=== PATIENT | male | born 1965 | race Caucasian/White ===

== ENCOUNTER 2025-10-16 00:29 | Emergency (ER) | payer MEDICAID, SELFPAY ==
--- OUTSIDE RECORDS SUMMARY | 2025-09-07 14:00 | XMS_ITS | Encounter Summary ---
Author Organization [place] Address [address] [place] [address] Care Team Providers Care Job Press Feeder Name Role Phone [facility] Unavailable [phone] No Ref-Primary, Physician Primary Care Provider [facility] Unavailable Reason for Referral * Consultation (Routine: Next available opening) - Pending ReviewSpecialty Diagnoses / ProceduresReferred By ContactReferred To ContactGastroenterology Diagnoses Alcoholic cirrhosis of liver with ascites (H) Abi Mcclellan MD [address] [place] [address] Phone: tel: fax: Referral IDStatusReasonStart DateExpiration DateVisits RequestedVisits [id number] Reason for Referral: Liver Disease/Concern Scheduling Instructions: [facility] will call you to coordinate your care as prescribed by the provider. If you don???t hear from a quality audit representative within 12 business days, please call . Comments Please be aware that coverage of these services is subject to the terms and limitations of your health insurance plan. Call member services at your health plan with any benefit or coverage questions. [facility] will call you to coordinate your care as prescribed by the provider. If you don t hear from a quality audit representative within 12 business days, please call . PER MARKETING MANAGER * Mental Health Outpatient (Routine: Next available opening) - Pending Review SpecialtyDiagnoses / ProceduresReferred By ContactReferred To Contact Behavioral Health Diagnoses Major depressive disorder, recurrent episode, moderate (H) TERENCE (generalized anxiety disorder) Abi Mcclellan MD [address] [place] [address] Phone: tel: fax: Referral IDStatusReasonStart DateExpiration DateVisits RequestedVisits [id number] Services: Psychiatry/Med Management Reason for Referral - REVIEW REFERENCE LINK BELOW: Short-term consultation & return to PCP/Collaborative Care (CCPS) My Clinical Question Is: uncontolled anxiety/depression and possible ADHD Patient Scheduling Instructions: [facility] will contact you via phone, text, email or [employer]hart to coordinate your care as prescribed by your provider. If you don't hear from a quality audit representative within 2 business days, please call . Only select yes if the patient has already been scheduled and requires a referral for insurance. Ifyes is selected, the referral will NOT route to scheduling for outreach. No Comments Please be aware that coverage of these services is subject to the terms and limitations of your health insurance plan. Call member services at your health plan with any benefit or coverage questions. [facility] will contact you via phone, text, email or [employer]hart to coordinate your care as prescribed by your provider. If you don't hear from a quality audit representative within 2 business days, please call . PER MARKETING MANAGER Reason for Visit * ReasonCommentsRecheck Medication Encounter Details DateTypeDepartmentCare Team (Latest Contact Info)Ajrafqhdqqp15/21/2025 2:00 PM CSTOffice Visit [facility] [address] [place] [phone] Abi Mcclellan MD [address] [place] [address] Primary hypertension (Primary Dx); Other hyperlipidemia; Benign prostatic hyperplasia with nocturia; Alcoholic cirrhosis of liver with ascites (H); Major depressive disorder, recurrent episode, moderate (H); TERENCE (generalized anxiety disorder) Social History Tobacco UseTypesPacks/DayYears UsedDateSmoking Tobacco: PtwohiLerbiyxfal4Elrt: 05/06/1997Smokeless Tobacco: CurrentChewAlcohol UseStandard Drinks/WeekComments No0 (1 standard drink = 0.6 oz pure alcohol)Quit January 01, 2017PHQ-2AnswerDate RecordedPHQ-2 Zyuld36711/07/2024dolescent EducationAnswerDate RecordedGetting School Help NeededNot on file08/01/2023Food InsecurityAnswerDate RecordedWithin the past 12 months, did you worry that your food would run out before you got money to buy more?No08/26/2023Within the past 12 months, did the food you bought just not last and you didn???t have money to getmore?No08/26/2023Housing StabilityAnswerDate RecordedDo you have housing? (Housing is defined as stable permanent housing and does not include staying outside in a car, in a tent, in an abandoned building, in an overnight group home, or couch-surfing.)Yes08/26/2023 Are you worried about losing your housing?Yes08/26/2023Financial Resource Strain AnswerDate RecordedWithin the past 12 months, have you or your family members you live with been unable to get utilities (heat, electricity) when it was really needed?Yes08/26/2023Transportation NeedsAnswerDate RecordedWithin the past 12 months, has lack of transportation kept you from medical appointments, getting your medicines, non-medical meetings or appointments, work, or from getting things that you need?Yes08/26/2023Interpersonal SafetyAnswerDate RecordedDo you feel physically and emotionally safe where you currently live?Yes 09/07/2025Within the past 12 months, have you been hit, slapped, kicked or otherwise physically hurt by someone?No09/07/2025Within the past 12 months, have you been humiliated or emotionally abused in other ways by your partner or ex-partner?No09/07/2025Sex and Gender InformationValueDate RecordedSex Assigned at BirthNot on fileLegal ZfnCytn49/04/2012 3:21 AM CSTGender IdentityNot on file Sexual OrientationNot on filedocumented as of this encounter Last Filed Vital Signs Vital SignReadingTime TakenCommentsBlood Gjhbbmhx805/7409/07/2025 1:42 PM SHOPPER MARKETING MANAGER Wsjih052609/07/2025 1:42 PM JHLFgrhewfawkl77.7 ??C (99.8 ??F)09/07/2025 1:42 PM CSTRespiratory Enbg134211/07/2024 1:42 PM CSTOxygen Argrfzwpmi99%09/07/2025 1:42 PM CSTInhaled Oxygen Concentration--Bvqlnc076.9 kg (253 lb 3.2 oz)09/07/2025 1:42 PM UGXDcksak725.8 cm (5' 10)09/07/2025 1:42 PM CSTBody Mass Index36.33 09/07/2025 1:42 PM CSTdocumented in this encounter Progress Notes * Abi Mcclellan MD - 09/07/2025 2:00 PM CST Assessment & Plan Primary hypertension Blood pressure reviewed, within target. Patient does report that this is maybe a 1 time reading that is looking good. He does check blood pressure at home which mostly runs in the 150s systolic. Patient has been on losartan medication before which was discontinued several years ago when patient presented to the hospital in 2017 with a seizure activity most likely secondary to withdrawal due to alc ohol dependence. His blood pressure readings have been high as reported by the patient, patient would like to proceed with initiation of blood pressure medication. Losartan Rx completed. Patient does state that he had tolerated the medication well in the past. Patient encouraged to monitor blood pressure at home, maintain a blood pressure log and bring it with him during his next office visit. Update lab work as below. - losartan (COZAAR) 25 MG tablet; Take 1 tablet (25 mg) by mouth daily. - Comprehensive metabolic panel; Future Benign prostatic hyperplasia with nocturia Does not recall being on the medication but feels that it probably would help with LUTS. Rx completed. - tamsulosin (FLOMAX) 0.4 MG capsule; Take 1 capsule (0.4 mg) by mouth daily. Alcoholic cirrhosis of liver with ascites (H) We spent some time today discussing follow-up on alcoholic liver cirrhosis. Patient has not seen a GI doctor for a while, we discussed on referral to the GI/hepatology team, expresses a dismissive tone. Patient expresses frustration with not having received Adderall when he feels that he really needs the medication and that is one of the first things that should be worked on. He does tell the provider that the frustration is not with you but is just with this whole thing. If I do not get the Adderall, I will just get it from some other place. He seems willing to proceed with the lab work and lab orders placed including lipid panel and CMP.He does request for testosterone lab work to be added to the panel and when I tried to ask patient about symptoms, he states I guess I will just get that done at the [facility] as well States that his has been using Lasix but ran out on a refill around 1 to 2 weeks ago. Refill completed. Patient does eventually agree for the referral to be placed. Encouraged to follow-up with the referral and of course patient does understand and and on multiple instances verbalized that he has a right to say no to recommendations as a patient. - Lipid panel reflex to direct LDL Fasting; Future - furosemide (LASIX) 20 MG tablet; TAKE 1 TABLET BY MOUTH ONCE DAILY . APPOINTMENT REQUIRED FOR FUTURE REFILLS - Comprehensive metabolic panel; Future - Adult GI Director Of Sales And Marketing Referral - Consult Only; Future Major depressive disorder, recurrent episode, moderate (H) TERENCE (generalized anxiety disorder) When patient had the assessment for ADHD February 2024, test results and visit documentation as reviewedon chart review: Test results are not consistent with an ADHD diagnosis. Symptoms are better explained by depression, anxiety, and alcohol use. Patient requests for Adderall prescription multiple times during the visit today. Discussed with the patient that it would be reasonable to start with depression/anxiety control. Patient tells provider that no one listens to what I think I need for myself. SSRI medications offered, patient declined. Tells provider I will just get Adderall from some other place He is willing to talk to psychiatrist, referral placed. - Adult Mental Health Director Of Sales And Marketing Referral; Future 62 minutes spent by me on the date of the encounter doing chart review, history and exam, documentation and further activities per the note Danny Ramos is a 60 year old, presenting for the following health issues: Recheck Medication 09/07/2025 1:42 PM Additional Questions Roomed by [place] Accompanied by Self HPI This is my first visit with the patient. Patient has a past medical history of alcohol use disorder, currently in remission with alcoholic liver cirrhosis, hypertension, uncontrolled depression/anxiety. Patient comes in today for refill of medications and for request of Adderall prescription. When patient had the assessment for ADHD February 2024, test results and visit documentation as reviewedon chart review: Test results are not consistent with an ADHD diagnosis. Symptoms are better explained by depression, anxiety, and alcohol use. Patient requests for Adderall prescription multiple times during the visit today. Discussed with the patient that it would be reasonable to start with depression/anxiety control. Patient tells provider that no one listens to what I think I need for myself. I have used Adderall before and I have not had any side effects and it has worked for me Blood pressure reviewed, within target. Patient does report that this is maybe a 1 time reading that is looking good. He does check blood pressure at home which mostly runs in the 150s systolic. Patient has been on losartan medication before which was discontinued several years ago when patient presented to the hospital in 2016 with a seizure activity most likely secondary to withdrawal due to alc ohol dependence. Review of Systems Constitutional, HEENT, cardiovascular, pulmonary, gi and gu systems are negative, except as otherwise noted. Objective BP 130/74 (BP Location: Right arm, Patient Position: Sitting, Cuff Size: Adult Large) Pulse 98 Temp 99.8 ??F (37.7 ??C) (Tympanic) Resp 16 Ht 1.778 m (5' 10) Wt 114.9 kg (253 lb 3.2 oz) SpO2 97% BMI 36.33 kg/m?? Body mass index is 36.33 kg/m??. Physical Exam GENERAL: alert and no distress RESP: lungs clear to auscultation - no rales, rhonchi or wheezes CV: regular rate and rhythm, normal S1 S2 MS: no gross musculoskeletal defects noted, no edema NEURO: Normal strength and tone, mentation intact and speech normal PSYCH: mentation appears normal, affect normal Signed Electronically by: Abi Mcclellan MD PER MARKETING MANAGER documented in this encounter Plan of Treatment DateTypeDepartmentCare Team (Latest Contact Info)Fujorltohlt78/06/2026 1:30 PM CSTOffice Visit [facility] [address] [place] [phone] Abi Mcclellan MD [address] [place], [place] [address] 11/22/2025 8:30 AM CSTVirtual Visit [facility] [address] [phone] Jillian Reeves [facility] [address] [place] [phone] 11/22/2025 9:00 AM CSTVirtual Visit [facility] [address] [phone] Abi Mcclellan MD [address] [place], [place] [phone] [place] [address] [place] [address] NameTypePriorityAssociated DiagnosesOrder ScheduleAdult Mental [facility] Director Of Sales And Marketing ReferralReferralRoutine: Next available opening Major depressive disorder, recurrent episode, moderate (H) TERENCE (generalized anxiety disorder) Expected: 09/07/2025 (Approximate), Expires: 09/07/2026dult GI Director Of Sales And Marketing Referral - Consult OnlyReferralRoutine: Next available opening Alcoholic cirrhosis of liver with ascites (H) Expected: 09/07/2025 (Approximate), Expires: 09/07/2026documented as of this encounter Results * (ABNORMAL) Lipid panel reflex to direct LDL Fasting (09/12/2025 9:42 AM SHOPPER MARKETING MANAGER) ComponentValueRef RangeTest MethodAnalysis TimePerformed AtPathologist ExolzxmumFykbcpuavxi311<200 mg/dL09/12/2025 10:37 PM CST[facility] Uxkqxfdjqqylv965<150 mg/dL09/12/2025 10:37 PM CSTUU LABORATORYDirect Measure HDL16(L)>=40 mg/dL09/12/2025 10:37 PM CSTUU LABORATORYLDL Cholesterol Wnmbrzxvyr12<100 mg/dL09/12/2025 10:37 PM CSTUU LABORATORYComment:LDL calculated using the Friedewald equation.Non HDL Sikkcjjtqxp376<130 mg/dL 09/12/2025 10:37 PM CSTUU LABORATORYPatient Fasting > 8hrs?Yes09/12/2025 10:37 PM CSTUU LABORATORYSpecimen (Source)Anatomical Location / LateralityCollection Method / VolumeCollection TimeReceived TimeBloodBLOOD SPECIMEN / Unknown Venipuncture / Uevecyo7809/12/2025 9:42 AM CST09/12/2025 9:42 AM SHOPPER MARKETING MANAGER Narrative [facility] - 09/12/2025 10:37 PM SHOPPER MARKETING MANAGER Cholesterol Desirable: < 200 mg/dL Borderline High: 200 - 239 mg/dL High: >= 240 mg/dL Triglycerides Normal: < 150 mg/dL Borderline High: 150 - 199 mg/dL High: 200-499 mg/dL Very High: >= 500 mg/dL Direct Measure HDL Female: >= 50 mg/dL Male: >= 40 mg/dL LDL Cholesterol Desirable: < 100 mg/dL Above Desirable: 100 - 129 mg/dL Borderline High: 130 - 159 mg/dL High: ??160 - 189 mg/dL Very High: >= 190 mg/dL Non HDL Cholesterol Desirable: < 130 mg/dL Above Desirable: 130 - 159 mg/dL Borderline High: 160 - 189 mg/dL High: 190 - 219 mg/dL Very High: >= 220 mg/dL Authorizing ProviderResult TypeResult StatusHafsa Eleuterio MDLAB - BLOOD ORDERABLESFinal ResultPerforming OrganizationAddressCity/State/ZIP CodePhone Number [facility] [place] [facility] [address] [place] [address], [place] * (ABNORMAL) Comprehensive metabolic panel (09/12/2025 9:42 AM SHOPPER MARKETING MANAGER)Component ValueRef RangeTest MethodAnalysis TimePerformed AtPathologist SignatureSodium 238759 - 145 mmol/L111/12/2024 10:37 PM CSTUU LABORATORYPotassium3.0(L)3.4 - 5.3 mmol/L111/12/2024 10:37 PM CSTUU LABORATORYCarbon Dioxide (CO2)2622 - 29 mmol/L111/12/2024 10:37 PM CSTUU LABORATORYAnion Fxg126 - 15 mmol/L111/12/2024 10:37 PM CSTUU LABORATORYUrea Jvhjriaz41.16.0 - 20.0 mg/dL09/12/2025 10:37 PM CSTUU LABORATORYCreatinine0.890.67 - 1.17 mg/dL09/12/2025 10:37 PM CSTUU LABORATORYGFR Estimate>90>60 mL/min/1.11h97209/12/2025 10:37 PM CST[facility] Comment:eGFR calculated using 2020 CKD-EPI equation.Calcium9.08.8 - 10.4 mg/dL 09/12/2025 10:37 PM CSTUU IIMNTTEASKDdjdbvzw91472 - 107 mmol/L111/12/2024 10:37 PM CSTUU OAOBHSQAOMEhcdvjd180(H)70 - 99 mg/dL09/12/2025 10:37 PM CSTUU LABORATORYAlkaline Dvazoheocwd410(H)40 - 150 U/L111/12/2024 10:37 PM CSTUU JIBQAJLMPWBNK29(H)0 - 45 U/L111/12/2024 10:37 PM CSTUU GXWEWABPTTBDX726 - 70 U/L111/12/2024 10:37 PM CSTUU LABORATORYProtein Total7.06.4 - 8.3 g/dL 09/12/2025 10:37 PM CSTUU LABORATORYAlbumin3.1(L)3.5 - 5.2 g/dL09/12/2025 10:37 PM CSTUU LABORATORYBilirubin Total5.5(H)<=1.2 mg/dL09/12/2025 10:37 PM CSTUU LABORATORYPatient Fasting > 8hrs?Yes09/12/2025 10:37 PM CST[facility] Specimen (Source)Anatomical Location / LateralityCollection Method / Volume Collection TimeReceived TimeBloodBLOOD SPECIMEN / UnknownVenipuncture / Tcdfyvk1509/12/2025 9:42 AM CST09/12/2025 9:42 AM SHOPPER MARKETING MANAGER Narrative Authorizing ProviderResult TypeResult StatusHafsgary Mcclellan MDLAB - BLOOD ORDERABLESFinal ResultPerforming OrganizationAddressCity/State/ZIP CodePhone Number [facility] [place] [facility] [address] [place] [address] documented in this encounter Visit Diagnoses Diagnosis Primary hypertension- Primary Unspecified essential hypertension Other hyperlipidemia Benign prostatic hyperplasia with nocturia Alcoholic cirrhosis of liver with ascites (H) Alcoholic cirrhosis of liver Major depressive disorder, recurrent episode, moderate (H) Major depressive disorder, recurrent episode, moderate TERENCE (generalized anxiety disorder) Generalized anxiety disorder documented in this encounter Additional Health Concerns AssessmentNoted TimePHQ-9 Depression Total Score: 7111/07/2024 1:50 PM SHOPPER MARKETING MANAGER documented as of this encounter Care Teams Team MemberRelationshipSpecialtyStart DateEnd Date No Ref-Primary, Physician PCP - General05/28/23 [facility] [id number] [place] [address] PCP02/09/[address] [address] Assigned PCP07/10/22/25documented as of this encounter
--- OUTSIDE RECORDS SUMMARY | 2025-09-12 09:45 | XMS_ITS | Encounter Summary ---
Author Organization [facility] Address [address] [place] [address] Care Team Providers Care Ceramics Technician Name Role Phone Clinic, [facility] Unavailable [phone] No Ref-Primary, Physician Primary Care Provider Abi Mcclellan MD Unavailable Encounter Details DateTypeDepartmentCare Team (Latest Contact Info)Mnapybxhose71/26/2025 9:45 AM [facility] [address] [place] [address] Primary hypertension; Alcoholic cirrhosis of liver with ascites (H) Social History Tobacco UseTypesPacks/DayYears UsedDateSmoking Tobacco: MmvdwbCdhxtjlwdb2Zslu: 05/06/1997Smokeless Tobacco: CurrentChewAlcohol UseStandard Drinks/WeekComments No0 (1 standard drink = 0.6 oz pure alcohol)Quit January 01, 2017PHQ-2AnswerDate RecordedPHQ-2 Yaoti13911/07/2024dolescent EducationAnswerDate RecordedGetting School Help NeededNot on file08/01/2023Food [...] in an abandoned building, in an overnight detention, or couch-surfing.)Yes08/26/2023 Are you worried about losing [...] InformationValueDate RecordedSex Assigned at BirthNot on fileLegal FbyYzfx04/04/2012 3:21 AM CSTGender IdentityNot on file Sexual OrientationNot on filedocumented as of this encounter Plan of Treatment DateTypeDepartmentCare Team (Latest Contact Info)Smusnngnhfq93/06/2026 1:30 PM CSTOffice Visit [facility] [address] [place] [phone] Abi Mcclellan MD [address] [place] [address] 11/22/2025 8:30 AM CSTVirtual Visit [facility] [address] [place] [phone] Jillian Reeves [facility] [address] [place] [phone] 11/22/2025 9:00 AM CSTVirtual Visit [facility] [place] [address] [place] [phone] Abi Mcclellan MD [address] [place], [place] [address] Elisa Colon DO [address] [place], [place] [phone] documented as of this encounter Procedures Procedure NamePriorityDate/TimeAssociated DiagnosisCommentsLIPID REFLEX TO DIRECT LDL CBLYHBxnahsr97/26/2025 9:42 AM DINKEY PRESS OPERATOR Alcoholic cirrhosis of liver with ascites (H) COMPREHENSIVE METABOLIC JITZCRzmccix13/26/2025 9:42 AM DINKEY PRESS OPERATOR Primary hypertension Alcoholic cirrhosis of liver with ascites (H) documented in this encounter Results * (ABNORMAL) Lipid panel reflex to direct LDL Fasting (09/12/2025 9:42 AM DINKEY PRESS OPERATOR) ComponentValueRef RangeTest MethodAnalysis TimePerformed AtPathologist UvpmfdtxyIfrgmotkfna832<200 mg/dL09/12/2025 10:37 PM [facility] Iblhxsarvbmzf886<150 mg/dL09/12/2025 10:37 PM CSTUU LABORATORYDirect Measure HDL16(L)>=40 mg/dL09/12/2025 10:37 PM [facility]ST[facility] LABORATORYLDL Cholesterol Ozsfjihffd15<100 mg/dL09/12/2025 10:37 PM CSTUU LABORATORYComment:LDL calculated using the Friedewald equation.Non HDL Sgqpfdpglfd399<130 mg/dL 09/12/2025 10:37 PM CST[facility] LABORATORYPatient Fasting > 8hrs?Yes09/12/2025 10:37 PM CSTUU LABORATORYSpecimen (Source)Anatomical Location / LateralityCollection Method / VolumeCollection TimeReceived TimeBloodBLOOD SPECIMEN / Unknown Venipuncture / Sajwbuw1709/12/2025 9:42 AM CST09/12/2025 9:42 AM DINKEY PRESS OPERATOR Narrative [facility] - 09/12/2025 10:37 PM DINKEY PRESS OPERATOR Cholesterol Desirable: < 200 mg/dL Borderline High: [...] High: >= 220 mg/dL Authorizing ProviderResult TypeResult StatusHafsgary Mcclellan MDLAB - BLOOD ORDERABLESFinal ResultPerforming OrganizationAddressCity/State/ZIP CodePhone Number [facility] [address] [facility], [address] [place] [phone] * (ABNORMAL) Comprehensive metabolic panel (09/12/2025 9:42 AM DINKEY PRESS OPERATOR)Component ValueRef RangeTest MethodAnalysis TimePerformed AtPathologist SignatureSodium 127385 - 145 mmol/L111/12/2024 10:37 PM CST[facility] LABORATORYPotassium3.0(L)3.4 - 5.3 mmol/L111/12/2024 10:37 PM CST[facility] LABORATORYCarbon Dioxide (CO2)2622 - 29 mmol/L111/12/2024 10:37 PM CST[facility] LABORATORYAnion Kci412 - 15 mmol/L111/12/2024 10:37 PM CST[facility] LABORATORYUrea Ctjambbm90.16.0 - 20.0 mg/dL09/12/2025 10:37 PM [facility] LABORATORYCreatinine0.890.67 - 1.17 mg/dL09/12/2025 10:37 PM CST[facility] LABORATORYGFR Estimate>90>60 mL/min/1.69i72009/12/2025 10:37 PM [facility] Comment:eGFR calculated using 2020 CKD-EPI equation.Calcium9.08.8 - 10.4 mg/dL 09/12/2025 10:37 PM [facility] VPXZRYLARRJcdaarys38524 - 107 mmol/L111/12/2024 10:37 PM [facility] GEHNOJXVROTcujvpv918(H)70 - 99 mg/dL09/12/2025 10:37 PM [facility]ST[facility] LABORATORYAlkaline Wqwzvvtpnne638(H)40 - 150 U/L111/12/2024 10:37 PM [facility] CPAUCLVVNBTTC72(H)0 - 45 U/L111/12/2024 10:37 PM [facility] LPAUXLXRWWRIB482 - 70 U/L111/12/2024 10:37 PM [facility] LABORATORYProtein Total7.06.4 - 8.3 g/dL 09/12/2025 10:37 PM [facility] LABORATORYAlbumin3.1(L)3.5 - 5.2 g/dL09/12/2025 10:37 PM [facility] LABORATORYBilirubin Total5.5(H)<=1.2 mg/dL09/12/2025 10:37 PM [facility] LABORATORYPatient Fasting > 8hrs?Yes09/12/2025 10:37 PM [facility] Specimen (Source)Anatomical Location / LateralityCollection Method / Volume Collection TimeReceived TimeBloodBLOOD SPECIMEN / UnknownVenipuncture / Hajzpry3009/12/2025 9:42 AM CST09/12/2025 9:42 AM DINKEY PRESS OPERATOR Narrative Authorizing ProviderResult TypeResult StatusHafsa Eleuterio VELASCOLAB - BLOOD ORDERABLESFinal ResultPerforming OrganizationAddressCity/State/ZIP CodePhone Number [facility] [address] [facility], [address] [phone] documented in this encounter Visit Diagnoses Diagnosis Primary hypertension Unspecified essential hypertension Alcoholic cirrhosis of liver with ascites (H) Alcoholic cirrhosis of liver documented in this encounter Additional Health Concerns AssessmentNoted TimePHQ-9 Depression Total Score: 7111/07/2024 1:50 PM DINKEY PRESS OPERATOR documented as of this encounter Care Teams Team MemberRelationshipSpecialtyStart DateEnd Date No Ref-Primary, Physician PCP - General05/28/23 [place] [address] PCP02/09/18 Abi Mcclellan MD [address] [place], [place] [address] Assigned PCP09/09/25documented as of this encounter
--- OUTSIDE RECORDS SUMMARY | 2025-10-09 13:51 | XMS_ITS | Encounter Summary ---
Author Organization [facility] Address [address] [place] [address] Care Team Providers Care Cabin Furnishings Installer Name Role Phone [facility], [facility] Unavailable [phone] No Ref-Primary, Physician Primary Care Provider Abi Mcclellan MD Unavailable Reason for Visit * ReasonCommentsBloated * Auth/CertSpecialtyDiagnoses / ProceduresReferred By ContactReferred To Contact EMERGENCY MEDICINE Diagnoses Hepatitis [facility] Emergency Dept [address] [place] [address] Phone: tel:[phone] fax: Referral IDStatusReasonStart DateExpiration DateVisits RequestedVisits [id number] Encounter Details DateTypeDepartmentCare Team (Latest Contact Info)Jfmgcvnfiun32/23/2025 1:51 PM SEALING MACHINE OPERATOR - 10/09/2025 4:45 PM CSTHospital Encounter [facility] Emergency Dept [address] [place] [address] Zenon Khanna MD [facility] [address] [place] [address] [place] [address] Hepatitis (Primary Dx); 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) Discharge Disposition: Home or Self Care Social History Tobacco UseTypesPacks/DayYears UsedDateSmoking Tobacco: LcnkajDmxlrrgouz3Fidz: 05/06/1997Smokeless Tobacco: CurrentChewAlcohol UseStandard Drinks/WeekComments No0 (1 standard drink = 0.6 oz pure alcohol)Quit January 01, 2017PHQ-2AnswerDate RecordedPHQ-2 Dswuj47611/07/2024dolescent EducationAnswerDate RecordedGetting School Help NeededNot on file08/01/2023Food [...] in an abandoned building, in an overnight assisted, or couch-surfing.)Yes08/26/2023 Are you worried about losing [...] InformationValueDate RecordedSex Assigned at BirthNot on fileLegal IpzRyul25/04/2012 3:21 AM CSTGender IdentityNot on file Sexual OrientationNot on filedocumented as of this encounter Last Filed Vital Signs Vital SignReadingTime TakenCommentsBlood Eclgfiwt785/7210/09/2025 3:26 PM SEALING MACHINE OPERATOR Zptjs962610/09/2025 3:26 PM ZTFZemjciucjjz62.4 ??C (97.6 ??F)10/09/2025 12:38 PM CSTRespiratory Aypu9050 12:38 PM CSTOxygen Gumzbapjig94%10/09/2025 3:26 PM CSTInhaled Oxygen Concentration--Cmgmaz618.1 kg (247 lb 2.2 oz)10/09/2025 12:38 PM YOIQqhpqj865.8 cm (5' 10)10/09/2025 12:38 PM CSTBody Mass Index35.46 10/09/2025 12:38 PM CSTdocumented in this encounter Functional Status * Calculated C-SSRS Risk Score (Lifetime/Recent)AnswerDate of AssessmentAuthorNo Risk Sqyiwihrm18/23/2025 12:38 PM Opal Hightower RN * [place] Suicide Severity Rating Scale (Screener/Recent Self-Report)Question AnswerDate of AssessmentAuthor1. Wish to be (Past 1 Month)No10/09/2025 12:38 PM Opal Hightower RN2. Non-Specific Active Suicidal Thoughts (Past 1 Month)No10/09/2025 12:38 PM Opal Hightower RN6. Suicidal Behavior (Lifetime)No10/09/2025 12:38 PM Opal Hightower RN documented as of this encounter Discharge Instructions * Discharge Instructions* Zenon Khanna MD - 10/09/2025 4:42 PM SEALING MACHINE OPERATOR If you change your mind about admission, please return. It is vital that you do not use any alcoholor tylenol to prevent worsening liver disease and . ING MACHINE OPERATOR * Attachments The following attachments cannot be sent through Care Everywhere. * Hepatitis (Sudanese) documented in this encounter Medications at Time of Discharge MedicationSigDispense QuantityRefillsLast FilledStart DateEnd Date pvelqhtq-qtpibyrba-cbyKEPLLwtboy (MAXITROL) 0.1 % ophthalmic suspension Indications:Acute bacterial conjunctivitis of both eyesPlease instill 1-2 drops into both eyes 4 times daily for 7 days 10 mL 09/28/2023 furosemide (LASIX) 20 MG tablet Indications:Alcoholic cirrhosis of liver with ascites (H)TAKE 1 TABLET BY MOUTH ONCE DAILY . APPOINTMENT REQUIRED FOR FUTURE REFILLS 60 tablet losartan (COZAAR) 25 MG tablet Indications:Primary hypertensionTake 1 tablet (25 mg) by mouth daily. 90 tablet tamsulosin (FLOMAX) 0.4 MG capsule Indications:Benign prostatic hyperplasia with nocturiaTake 1 capsule (0.4 mg) by mouth daily. 30 capsule documented as of this encounter Progress Notes * Catherine Gomez RN - 10/09/2025 3:09 PM CST Patient tolerated paracentesis well. 1200 mL of clear yellow fluid drained done by Dr. Lomeli. Dressing Clean dry and intact with no drainage. No albumin given. Patient back to ER via cart. Samplesrequested were brought to lab for processing. ING MACHINE OPERATOR documented in this encounter ED Notes * Karlene Campos RN - 10/09/2025 4:33 PM CST [facility] ED Nurse Handoff Report ED Chief complaint: Bloated . 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 Activity Level - Current: standby. Lift room needed: No. Bariatric: No Tool Machine Set Up Operator Needed: No Isolation: No. Infection: Not Applicable. Respiratory status: Room air Vital Signs (within 30 minutes): Vitals: 10/09/25 1238 10/09/25 1526 BP: 137/78 135/72 Pulse: 89 81 Resp: 20 Temp: 97.6 ??F (36.4 ??C) TempSrc: Oral SpO2: 99% 96% Weight: 112.1 kg (247 lb 2.2 oz) Height: 1.778 m (5' 10) Cardiac Rhythm: , Pain level: Patient confused: No. Patient Falls Risk: patient and family education. Elimination Status: Has voided Patient Report - Initial Complaint: bloating. Focused Assessment: pt bloated feeling decreased post paracentesis. Abnormal Results: Labs Ordered and Resulted from Time of ED Arrival to Time of ED Departure COMPREHENSIVE METABOLIC PANEL (LIMITED OCCURRENCES) - Abnormal Result Value Sodium 136 Potassium 3.0 (*) Carbon Dioxide (CO2) 26 Anion Gap 12 Urea Nitrogen 21.0 (*) Creatinine 1.13 GFR Estimate 75 Calcium 8.0 (*) Chloride 98 Glucose 145 (*) Alkaline Phosphatase 246 (*) AST 121 (*) ALT 57 Protein Total 6.0 (*) Albumin 2.7 (*) Bilirubin Total 21.0 (*) LIPASE - Abnormal Lipase 99 (*) BILIRUBIN DIRECT - Abnormal Bilirubin Direct 16.23 (*) ROUTINE UA WITH MICROSCOPIC REFLEX TO CULTURE - Abnormal Color Urine Dark Yellow (*) Appearance Urine Clear Glucose Urine Negative Bilirubin Urine Large (*) Ketones Urine Negative Specific [place] Urine 1.012 Blood Urine Negative pH Urine 6.0 Protein Albumin Urine Negative Urobilinogen Urine 4.0 (*) Nitrite Urine Negative Leukocyte Esterase Urine Trace (*) Bacteria Urine Few (*) Mucus Urine Present (*) RBC Urine 1 WBC Urine 8 (*) Squamous Epithelials Urine 3 (*) CBC WITH PLATELETS AND DIFFERENTIAL - Abnormal WBC Count 5.97 RBC Count 3.58 (*) Hemoglobin 8.4 (*) Hematocrit 28.1 (*) MCV 78.5 MCH 23.5 (*) MCHC 29.9 (*) RDW 23.6 (*) Platelet Count 118 (*) % Neutrophils 72.5 % Lymphocytes 12.6 % Monocytes 8.7 % Eosinophils 5.4 % Basophils 0.5 % Immature Granulocytes 0.3 NRBCs per 100 WBC 0.0 Absolute Neutrophils 4.33 Absolute Lymphocytes 0.75 (*) Absolute Monocytes 0.52 Absolute Eosinophils 0.32 Absolute Basophils 0.03 Absolute Immature Granulocytes <0.03 Absolute NRBCs <0.03 INR - Abnormal INR 1.82 (*) PT 20.7 (*) ALBUMIN FLUID PROTEIN FLUID ETHANOL LEVEL BLOOD CELL COUNT BODY FLUID DIFERENTIAL BODY FLUID AEROBIC BACTERIAL CULTURE ROUTINE CELL COUNT WITH DIFFERENTIAL FLUID US Paracentesis with Albumin Final Result IMPRESSION: 1. Status post ultrasound-guided paracentesis. Reference CPT Code: 78778 Treatments provided: see chart Family Comments: see chart OBS brochure/video discussed/provided to patient: N/A ED Medications: Medications albumin human 25 % injection 25-50 g (has no administration in time range) lidocaine 1 % 1-30 mL (10 mLs Subcutaneous $Given by Other 10/09/25 1509) Drips infusing: No For the majority of the shift this patient was n/a. Interventions performed were n/a. Sepsis treatment initiated: No Cares/treatment/interventions/medications to be completed following ED care: see chart ED Nurse Name: Karlene Campos RN 4:34 PM [1] Allergies Allergen Reactions Eicosapentaenoic Acid (Epa) (Fish) Anaphylaxis Fish Protein-Containing Drug Products Anaphylaxis Has had IV contrast 12/2015 without issue Penicillins Hives Has tolerated ampicillin/sulbactam Ibuprofen Hives ING MACHINE OPERATOR * Beth Hernandez RN - 10/09/2025 2:33 PM CST Bed: ED15 Expected date: Expected time: Means of arrival: Comments: triage ING MACHINE OPERATOR * Zenon Khanna MD - 10/09/2025 2:10 PM CST Emergency Department Note History of Present Illness Chief Complaint Bloated HPI Richard Fonseca is a 60 year old male who presents with bloating over the past few weeks that has been progressive. Last etoh was years ago per patient. Pt reports last paracentesis was years ago. Pt has noticed a few weeks of yellowing of the eyes. Pt lives alone and drove here. Pt feels itchy. Pt takes lasix for swelling in legs and abdomen. No black or blood in stool. No vomiting. Sometimes dizzy but not today. Pt fell yesterday on ice but did not hit head. Pt doesn't feel confused. No cough. No headache. No recreational drugs. Pt uses adderal that is not prescribed. Independent Historian None Review of External Notes Past Medical History Medical History and Problem List Past Medical History: Diagnosis Date C. difficile colitis 01/17/2017 Hypertension Seizures (H) Medications furosemide (LASIX) 20 MG tablet losartan (COZAAR) 25 MG tablet oacgektk-hidleiolu-rjvSZPZIytbgw (MAXITROL) 0.1 % ophthalmic suspension tamsulosin (FLOMAX) 0.4 MG capsule Surgical History Past Surgical History: Procedure Laterality Date ESOPHAGOSCOPY, GASTROSCOPY, DUODENOSCOPY (EGD), COMBINED N/A 05/17/2023 Procedure: ESOPHAGOGASTRODUODENOSCOPY; Surgeon: Umer Magaña MD; Location: OR Physical Exam Patient Vitals for the past 24 hrs: BP Temp Temp src Pulse Resp SpO2 Height Weight 10/09/25 1526 135/72 -- -- 81 -- 96 % -- -- 10/09/25 1238 137/78 97.6 ??F (36.4 ??C) Oral 89 20 99 % 1.778 m (5' 10) 112.1 kg (247 lb 2.2 oz) Physical Exam VS: Reviewed per above HENT: Mucous membranes moist EYES: sclera icteric CV: Rate as noted, regular rhythm. RESP: Effort normal. Breath sounds are normal bilaterally. GI: no focal tenderness. no rebound/guarding, anasarca vs obese vs distended. NEURO: Alert, moving all extremities MSK: No deformity of the extremities SKIN: Warm and dry, jaundiced skin Diagnostics Lab Results Labs Ordered and Resulted from Time of ED Arrival to Time of ED Departure COMPREHENSIVE METABOLIC PANEL (LIMITED OCCURRENCES) - Abnormal Result Value Sodium 136 Potassium 3.0 (*) Carbon Dioxide (CO2) 26 Anion Gap 12 Urea Nitrogen 21.0 (*) Creatinine 1.13 GFR Estimate 75 Calcium 8.0 (*) Chloride 98 Glucose 145 (*) Alkaline Phosphatase 246 (*) AST 121 (*) ALT 57 Protein Total 6.0 (*) Albumin 2.7 (*) Bilirubin Total 21.0 (*) LIPASE - Abnormal Lipase 99 (*) BILIRUBIN DIRECT - Abnormal Bilirubin Direct 16.23 (*) ROUTINE UA WITH MICROSCOPIC REFLEX TO CULTURE - Abnormal Color Urine Dark Yellow (*) Appearance Urine Clear Glucose Urine Negative Bilirubin Urine Large (*) Ketones Urine Negative Specific [place] Urine 1.012 Blood Urine Negative pH Urine 6.0 Protein Albumin Urine Negative Urobilinogen Urine 4.0 (*) Nitrite Urine Negative Leukocyte Esterase Urine Trace (*) Bacteria Urine Few (*) Mucus Urine Present (*) RBC Urine 1 WBC Urine 8 (*) Squamous Epithelials Urine 3 (*) CBC WITH PLATELETS AND DIFFERENTIAL - Abnormal WBC Count 5.97 RBC Count 3.58 (*) Hemoglobin 8.4 (*) Hematocrit 28.1 (*) MCV 78.5 MCH 23.5 (*) MCHC 29.9 (*) RDW 23.6 (*) Platelet Count 118 (*) % Neutrophils 72.5 % Lymphocytes 12.6 % Monocytes 8.7 % Eosinophils 5.4 % Basophils 0.5 % Immature Granulocytes 0.3 NRBCs per 100 WBC 0.0 Absolute Neutrophils 4.33 Absolute Lymphocytes 0.75 (*) Absolute Monocytes 0.52 Absolute Eosinophils 0.32 Absolute Basophils 0.03 Absolute Immature Granulocytes <0.03 Absolute NRBCs <0.03 INR - Abnormal INR 1.82 (*) PT 20.7 (*) AEROBIC BACTERIAL CULTURE ROUTINE Imaging US Paracentesis with Albumin Final Result IMPRESSION: 1. Status post ultrasound-guided paracentesis. Reference CPT Code: 47316 EKG Independent Interpretation None ED Course Medications Administered Medications lidocaine 1 % 1-30 mL (10 mLs Subcutaneous $Given by Other 10/09/25 4356) Procedures Procedures Discussion of Management None ED Course Additional Documentation None Medical Decision Making / Diagnosis [facility] Diagnoses: None MIPS None [facility] Richard Fonseca is a 60 year old male who presents to the ER for progressive jaundice and abdominal distention over the past few weeks. Vital signs reassuring. On exam he is awake and alert and not confused. He has scleral icterus and jaundice. He has abdominal distention but no focal tenderness. Labs do suggest hepatitis and bilirubin elevation. There is also mild hypokalemia as well as some mild worsening anemia with hemoglobin of 8.4 but no history to support brisk GI bleed. IR performed paracentesis with removal of 1 to 2 L of fluid. Initial studies did not suggest likely SBP. Strongly recommended hospital admission for further gastroenterology evaluation. He declined. He understood the risk of serious morbidity or mortality should he discharge. Return precautions discussed. Disposition The patient was discharged AMA Diagnosis ICD-10-CM 1. Hepatitis K75.9 2. 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) K70.31 Discharge Medications Discharge Medication List as of 10/09/2025 4:46 PM Zenon Khanna MD 10/09/25 1859 ING MACHINE OPERATOR * Opal Langford RN - 10/09/2025 12:39 PM CST Pt presents for evaluation of bloating and constipation. Also feeling short of breath and generalized itchy skin at night. Hx of cirrhosis with ascites. Yellowing noted to the sclera and skin. Had a paracentesis 8 years ago, none since. Last BM was today. ING MACHINE OPERATOR documented in this encounter Plan of Treatment DateTypeDepartmentCare Team (Latest Contact Info)Jjxzrzolwwd53/06/2026 1:30 PM CSTOffice Visit [facility] [address] [facility] [address] [address] [facility] [address] [place] [phone] Abi Mcclellan MD [address] [place], [place] [address] 11/22/2025 8:30 AM CSTVirtual Visit [facility] [address] [address] Jillian Reeves [facility] [address] [place], [place] [phone] 11/22/2025 9:00 AM CSTVirtual Visit [facility] [address] [phone] Abi Mcclellan MD [address] [place], [place] [phone] Elisa Colon DO [address] [place], [place] [phone] documented as of this encounter Procedures Procedure NamePriorityDate/TimeAssociated DiagnosisCommentsROUTINE UA WITH MICROSCOPIC REFLEX TO XWGBSNUNUWB12/23/2025 4:03 PM SEALING MACHINE OPERATOR US PARACENTESIS WITH LCGNTAMQPKP80/23/2025 3:24 PM SEALING MACHINE OPERATOR DIFERENTIAL BODY UUYWVGEHQ45/23/2025 3:11 PM SEALING MACHINE OPERATOR CELL COUNT BODY HOQZMIHME08/23/2025 3:11 PM SEALING MACHINE OPERATOR AEROBIC BACTERIAL CULTURE EBLPTTCGHVT45/23/2025 3:11 PM SEALING MACHINE OPERATOR PROTEIN RWMYPUVUI13/23/2025 3:11 PM SEALING MACHINE OPERATOR CELL COUNT WITH DIFFERENTIAL KTICTRDLO79/23/2025 3:11 PM SEALING MACHINE OPERATOR ALBUMIN OFPZLVWDC29/23/2025 3:11 PM SEALING MACHINE OPERATOR EXTRA AHYMZIGN32/23/2025 1:15 PM SEALING MACHINE OPERATOR EXTRA RED TOP TTSGFABN64/23/2025 1:15 PM SEALING MACHINE OPERATOR EXTRA BLUE TOP TMYTINVQ06/23/2025 1:15 PM SEALING MACHINE OPERATOR CBC WITH PLATELETS AND GGCAXHMRVKFUPUYS20/23/2025 1:15 PM SEALING MACHINE OPERATOR CBC WITH PLATELETS AND DIFFERENTIAL (LIMITED OCCURRENCES)STAT112/10/2024 1:15 PM SEALING MACHINE OPERATOR COMPREHENSIVE METABOLIC PANEL (LIMITED OCCURRENCES)STAT112/10/2024 1:15 PM SEALING MACHINE OPERATOR UQIIVKJ6610/09/2025 1:15 PM SEALING MACHINE OPERATOR JGOJRZCZGE89/23/2025 1:15 PM SEALING MACHINE OPERATOR BILIRUBIN MRLXSVUBCI16/23/2025 1:15 PM SEALING MACHINE OPERATOR ETHANOL LEVEL BLOODAdd-On12/ 1:15 PM SEALING MACHINE OPERATOR documented in this encounter Results * (ABNORMAL) UA with Microscopic reflex to Culture (10/09/2025 4:03 PM SEALING MACHINE OPERATOR) ComponentValueRef RangeTest MethodAnalysis TimePerformed AtPathologist SignatureColor UrineDark Yellow(A)Colorless, Straw, Light Yellow, Yellow 10/09/2025 4:32 PM [facility] LABORATORYAppearance LsqnkItyjvDqqbu71/23/2025 4:32 PM [facility] LABORATORYGlucose UrineNegativeNegative mg/dL10/09/2025 4:32 PM [facility] LABORATORYBilirubin UrineLarge(A)Bnihiueh21/23/2025 4:32 PM [facility] Ketones UrineNegativeNegative mg/dL10/09/2025 4:32 PM [facility] LABORATORYSpecific [place] Urine1.0121.003 - 1.3142910/09/2025 4:32 PM [facility] LABORATORYBlood Urine UxhwelfoDgdijcga20/23/2025 4:32 PM [facility] LABORATORYpH Urine6.05.0 - 7.0 10/09/2025 4:32 PM [facility] LABOR[facility]ORYProtein Albumin UrineNegativeNegative mg/dL 10/09/2025 4:32 PM [facility] LABORATORYUrobilinogen Urine4.0(A)Normal mg/dL 10/09/2025 4:32 PM [facility] LABORATORYNitrite MoaafWuksnedyDhrfmdwe20/23/2025 4:32 PM [facility] LABORATORYLeukocyte Esterase UrineTrace(A)Yvhwfnew60/23/2025 4:32 PM [facility] LABORATORYBacteria UrineFew(A)None Seen /HPF10/09/2025 4:32 PM [facility] LABORATORYMucus UrinePresent(A)None Seen /LPF112/10/2024 4:32 PM [facility] LABORATORYRBC Urine1<=2 /HPF10/09/2025 4:32 PM [facility] LABORATORYWBC Urine8(H) <=5 /HPF10/09/2025 4:32 PM [facility] LABORATORYSquamous Epithelials Urine3(H)<=1 /HPF10/09/2025 4:32 PM [facility] LABORATORYSpecimen (Source)Anatomical Location / LateralityCollection Method / VolumeCollection TimeReceived TimeUrineMID- STREAM URINE SPECIMEN / UnknownNon-blood Collection / Nrbpqes2810/09/2025 4:03 PM CST10/09/2025 4:17 PM SEALING MACHINE OPERATOR Narrative LABORATORY - 10/09/2025 4:32 PM SEALING MACHINE OPERATOR Urine Culture not indicated Authorizing ProviderResult TypeResult StatusZenon Khanna LAB - URINE ORDERABLESFinal ResultPerforming OrganizationAddressCity/State/ZIP CodePhone Number [facility] [address] Lab (1st floor, no room number) [place] [address], [facility] * US Paracentesis with Albumin (10/09/2025 3:24 PM SEALING MACHINE OPERATOR)Anatomical Region LateralityModalityAbdomen/PelvisUltrasoundSpecimen (Source)Anatomical Location / LateralityCollection Method / VolumeCollection TimeReceived Time10/09/2025 3:24 PM CST10/09/2025 3:25 PM SEALING MACHINE OPERATOR Impressions 10/09/2025 3:56 PM SEALING MACHINE OPERATOR IMPRESSION: 1. ??Status post ultrasound-guided paracentesis. Reference CPT Code: 27693 Narrative 10/09/2025 3:56 PM SEALING MACHINE OPERATOR EXAM: 1. PARACENTESIS 2. ULTRASOUND GUIDANCE LOCATION: [facility] DATE: 10/09/2025 INDICATION: Ascites. PROCEDURE: Informed consent obtained. Time out performed. The abdomen was prepped and draped in a sterile fashion. 10 mL of 1% lidocaine was infused into local soft tissues. A 5 Surinamese catheter system was introduced into the abdominal ascites under ultrasound guidance. 1.2 liters of clear fluid were removed and sent to lab if requested. Patient tolerated procedure well. Ultrasound imaging was obtained and placed in the patient's permanent medical record. Procedure Note David Lomeli MD - 10/09/2025 EXAM: 1. PARACENTESIS 2. ULTRASOUND GUIDANCE LOCATION: [facility] DATE: 10/09/2025 INDICATION: Ascites. PROCEDURE: Informed consent obtained. Time out performed. The abdomen wasprepped and draped in a sterile fashion. 10 mL of 1% lidocaine was infusedinto local soft tissues. A 5 Surinamese catheter system was introduced intothe abdominal ascites under ultrasound guidance. 1.2 liters of clear fluid were removed and sent to lab if requested. Patient tolerated procedure well. Ultrasound imaging was obtained and placed in the patient's permanentmedical record. IMPRESSION: 1. Status post ultrasound-guided paracentesis. Reference CPT Code: 40449 Authorizing ProviderResult TypeResult StatusZenon CANDELARIOG US ORDERABLES Final Result * Differential Body Fluid (10/09/2025 3:11 PM SEALING MACHINE OPERATOR)ComponentValueRef RangeTest MethodAnalysis TimePerformed AtPathologist Signature% Slxlbjnptab47% NAZIA 10/09/2025 6:07 PM [facility]% Uakhrqkysmp83% NAZIA 10/09/2025 6:07 PM [facility]% Monocyte/Uaykcvrzaxy77% NAZIA 10/09/2025 6:07 PM [facility]% Lining Cells8% NAZIA 10/09/2025 6:07 PM [facility] LABORATORYAbsolute Neutrophils, Body Fluid37.4/uL NAZIA 10/09/2025 6:07 PM [facility] LABORATORYSpecimen (Source)Anatomical Location / LateralityCollection Method / VolumeCollection TimeReceived TimeAscites Fluid FLUID SPECIMEN / UnknownNon-blood Collection / Zqiffhi5810/09/2025 3:11 PM SEALING MACHINE OPERATOR 10/09/2025 3:41 PM SEALING MACHINE OPERATOR Narrative LABORATORY - 10/09/2025 6:07 PM SEALING MACHINE OPERATOR No reference ranges have been established. This result should be interpreted in the context of the patient's clinical condition and compared to simultaneous measurement in the patient's blood. Authorizing ProviderResult TypeResult StatusZenon US - BODY FLUIDS ORDERABLESFinal ResultPerforming OrganizationAddressCity/State/ZIP CodePhone Number LABORATORY [facility] [address] [facility] Lab (1st floor, no room number) [place] [address], [facility] * (ABNORMAL) Cell Count Body Fluid (10/09/2025 3:11 PM SEALING MACHINE OPERATOR)ComponentValueRef RangeTest MethodAnalysis TimePerformed AtPathologist SignatureColorYellow Colorless, Yellow NAZIA 10/09/2025 6:07 PM [facility] LABORATORYClarityHazy(A)Clear NAZIA 10/09/2025 6:07 PM [facility] LABORATORYCell Count Fluid KcweveVsqmuicbsb85/23/2025 6:07 PM [facility] LABORATORYTotal Nucleated Eszrq020/uL NAZIA 10/09/2025 6:07 PM [facility] LABORATORYSpecimen (Source)Anatomical Location / LateralityCollection Method / VolumeCollection TimeReceived TimeAscites Fluid FLUID SPECIMEN / UnknownNon-blood Collection / Upwagoc1010/09/2025 3:11 PM SEALING MACHINE OPERATOR 10/09/2025 3:41 PM SEALING MACHINE OPERATOR Narrative LABORATORY - 10/09/2025 6:07 PM SEALING MACHINE OPERATOR No reference ranges have been established. This result should be interpreted in the context of the patient's clinical condition and compared to simultaneous measurement in the patient's blood. ?? Authorizing ProviderResult TypeResult StatusElan Clemencia VELASCOLAB - BODY FLUIDS ORDERABLESFinal ResultPerforming OrganizationAddressCity/State/ZIP CodePhone Number LABORATORY [facility] [address] [facility] Lab (1st floor, no room number) [place] [address] * Ascites Fluid Aerobic Bacterial Culture Routine Without Gram Stain (10/09/2025 3:11 PM SEALING MACHINE OPERATOR)ComponentValueRef RangeTest MethodAnalysis TimePerformed At Pathologist SignatureCultureNo Fhqrwx3710/14/2025 7:23 AM CSTUU IDD LABORATORY Specimen (Source)Anatomical Location / LateralityCollection Method / Volume Collection TimeReceived TimeAscites FluidSPECIMEN FROM PERITONEUM / Unknown Non-blood Collection / Kssvkpw2610/09/2025 3:11 PM CST10/09/2025 3:41 PM SEALING MACHINE OPERATOR Narrative Authorizing ProviderResult TypeResult StatusElan Clemencia US - MICRO GENERAL ORDERABLESFinal ResultPerforming OrganizationAddressCity/State/ZIP Code Phone Number [facility]ORAT[facility] Inf. Diseases Di[facility]. Lab [address] [facility] [place] [address] * Protein fluid (10/09/2025 3:11 PM SEALING MACHINE OPERATOR)ComponentValueRef RangeTest Method Analysis TimePerformed AtPathologist SignatureProtein Fluid SourcePeritoneum 10/09/2025 4:45 PM [facility] LABORATORYProtein Total Fluid0.5g/dL10/09/2025 4:45 PM [facility] LABORATORYSpecimen (Source)Anatomical Location / LateralityCollection Method / VolumeCollection TimeReceived TimeAscites FluidFLUID SPECIMEN / UnknownNon-blood Collection / Geuvklw3310/09/2025 3:11 PM CST10/09/2025 3:41 PM SEALING MACHINE OPERATOR Narrative [facility] - 10/09/2025 4:45 PM SEALING MACHINE OPERATOR No reference ranges have been established. This result should be interpreted in the context of the patient's clinical condition and compared to simultaneous measurement in the patient's blood. This is a lab developed test. It has not been cleared or approved by the FDA. FDA clearance is not required for clinical use. Authorizing ProviderResult TypeResult StatusElan Garybanner [employer] - BODY FLUIDS ORDERABLESFinal ResultPerforming OrganizationAddressCity/State/ZIP CodePhone Number [facility] [address] (1st floor, no room number) [place] [phone] [place] [address] * Albumin fluid (10/09/2025 3:11 PM SEALING MACHINE OPERATOR)ComponentValueRef RangeTest Method Analysis TimePerformed AtPathologist SignatureAlbumin Fluid SourcePeritoneum 10/09/2025 4:45 PM CST LABORATORYAlbumin fluid0.4g/dL10/09/2025 4:45 PM SEALING MACHINE OPERATOR LABORATORYSpecimen (Source)Anatomical Location / LateralityCollection Method / VolumeCollection TimeReceived TimeAscites FluidFLUID SPECIMEN / UnknownNon-blood Collection / Qndlbxs2610/09/2025 3:11 PM CST10/09/2025 3:41 PM SEALING MACHINE OPERATOR Narrative LABORATORY - 10/09/2025 4:45 PM SEALING MACHINE OPERATOR No reference ranges have been established. This result should be interpreted in the context of the patient's clinical condition and compared to simultaneous measurement in the patient's blood. This is a lab developed test. It has not been cleared or approved by the FDA. FDA clearance is not required for clinical use. Authorizing ProviderResult TypeResult StatusElan Garybanner [employer] BODY FLUIDS ORDERABLESFinal ResultPerforming OrganizationAddressCity/State/ZIP CodePhone Number [facility] [address] (1st floor, no room number) [place] [phone] * Ethanol Level Blood (10/09/2025 1:15 PM SEALING MACHINE OPERATOR)ComponentValueRef RangeTest Method Analysis TimePerformed AtPathologist SignatureEthanol Level Blood<0.01<=0.01 g/dL10/09/2025 5:30 PM CST LABORATORYSpecimen (Source)Anatomical Location / LateralityCollection Method / VolumeCollection TimeReceived TimeBloodSTRUCTURE OF LEFT UPPER LIMB / UnknownVenipuncture / Scorraa4810/09/2025 1:15 PM SEALING MACHINE OPERATOR 10/09/2025 1:36 PM SEALING MACHINE OPERATOR Narrative Authorizing ProviderResult TypeResult StatusZenon US - BLOOD ORDERABLESFinal ResultPerforming OrganizationAddressCity/State/ZIP CodePhone Number [facility] [address] Lab (1st floor, no room number) [place] [address], [facility] * (ABNORMAL) INR (10/09/2025 1:15 PM SEALING MACHINE OPERATOR)ComponentValueRef RangeTest Method Analysis TimePerformed AtPathologist SignatureINR1.82(H)0.85 - 1.15112/10/2024 2:29 PM CST TQHXSRPZFHVB22.7(H)11.8 - 14.8 Rweohds9510/09/2025 2:29 PM CST LABORATORYSpecimen (Source)Anatomical Location / LateralityCollection Method / VolumeCollection TimeReceived TimeBloodSTRUCTURE OF LEFT UPPER LIMB / Unknown Venipuncture / Ifjgvdo3910/09/2025 1:15 PM CST10/09/2025 1:36 PM SEALING MACHINE OPERATOR Narrative Authorizing ProviderResult TypeResult StatusZenon US - BLOOD ORDERABLESFinal ResultPerforming OrganizationAddressCity/State/ZIP CodePhone Number [facility] [address] [facility] Lab (1st floor, no room number) [place] [address] * Extra Red Top Tube (10/09/2025 1:15 PM SEALING MACHINE OPERATOR)ComponentValueRef RangeTest Method Analysis TimePerformed AtPathologist SignatureHold KjknstmdNYA04/23/2025 2:46 PM CST LABORATORYSpecimen (Source)Anatomical Location / LateralityCollection Method / VolumeCollection TimeReceived TimeBloodSTRUCTURE OF LEFT UPPER LIMB / UnknownVenipuncture / Ksmocio6010/09/2025 1:15 PM CST10/09/2025 1:36 PM SEALING MACHINE OPERATOR Narrative Authorizing ProviderResult TypeResult StatusZenon Khanna MDLAB - BLOOD ORDERABLESFinal ResultPerforming OrganizationAddressCity/State/ZIP CodePhone Number [facility] [address] [facility] Lab (1st floor, no room number) [place] [address] * Extra Blue Top Tube (10/09/2025 1:15 PM SEALING MACHINE OPERATOR)ComponentValueRef RangeTest Method Analysis TimePerformed AtPathologist SignatureHold DytoivtjERC32/23/2025 2:46 PM [facility] LABORATORYSpecimen (Source)Anatomical Location / LateralityCollection Method / VolumeCollection TimeReceived TimeBloodSTRUCTURE OF LEFT UPPER LIMB / UnknownVenipuncture / Zyxnpto4410/09/2025 1:15 PM CST10/09/2025 1:36 PM SEALING MACHINE OPERATOR Narrative Authorizing ProviderResult TypeResult Christopher Vegaarmen [facility] - BLOOD ORDERABLESFinal ResultPerforming OrganizationAddressty/State/ZIP CodePhone Number [facility] [address] [facility] Lab (1st floor, no room number) [place] [address] * (ABNORMAL) CBC with platelets and differential (10/09/2025 1:15 PM SEALING MACHINE OPERATOR) ComponentValueRef RangeTest MethodAnalysis TimePerformed AtPathologist SignatureWBC Count5.974.00 - 11.00 10e3/uL10/09/2025 1:51 PM [facility] LABORATORY RBC Count3.58(L)4.40 - 5.90 10e6/uL10/09/2025 1:51 PM [facility] LABOR[facility] Hemoglobin8.4(L)13.3 - 17.7 g/dL10/09/2025 1:51 PM [facility] LABORATORYHematocrit 28.1(L)40.0 - 53.0 %10/09/2025 1:51 PM [facility] GGRBMZSHVKUJN58.578.0 - 100.0 fL 10/09/2025 1:51 PM [facility] QHQMIIFCOKCYP34.5(L)26.5 - 33.0 pg10/09/2025 1:51 PM [facility] TZBDYCMIEAIEOD63.9(L)31.5 - 36.5 g/dL10/09/2025 1:51 PM [facility] LABORATORY RDW23.6(H)10.0 - 15.0 %10/09/2025 1:51 PM [facility] LABORATORYPlatelet Dlmje519(L) 150 - 450 10e3/uL10/09/2025 1:51 PM [facility]% Uevbkqzcgaj06.5% 10/09/2025 1:51 PM [facility]% Nlilgitfcyn93.6%10/09/2025 1:51 PM [facility]% Monocytes8.7%10/09/2025 1:51 PM [facility]% Eosinophils5.4% 10/09/2025 1:51 PM [facility]% Basophils0.5%10/09/2025 1:51 PM [facility]% Immature Granulocytes0.3%10/09/2025 1:51 PM [facility] LABORATORYNRBCs per 100 WBC0.0<1.0 /6649210/09/2025 1:51 PM [facility] LABORATORYAbsolute Neutrophils 4.331.60 - 8.30 10e3/10/09/2025 1:51 PM [facility] LABORATORYAbsolute Lymphocytes 0.75(L)0.80 - 5.30 10e3/uL10/09/2025 1:51 PM [facility] LABORATORYAbsolute Monocytes0.520.00 - 1.30 10e3/uL10/09/2025 1:51 PM [facility] LABORATORYAbsolute Eosinophils0.320.00 - 0.70 10e3/10/09/2025 1:51 PM [facility] LABORATORYAbsolute Basophils0.030.00 - 0.20 10e3/10/09/2025 1:51 PM CST LABORATORYAbsolute Immature Granulocytes<0.03<=0.40 10e3/10/09/2025 1:51 PM [facility] Absolute NRBCs<0.0310e3/10/09/2025 1:51 PM [facility] LABORATORYSpecimen (Source) Anatomical Location / LateralityCollection Method / VolumeCollection Time Received TimeBloodSTRUCTURE OF LEFT UPPER LIMB / UnknownVenipuncture / Unknown 10/09/2025 1:15 PM CST10/09/2025 1:36 PM SEALING MACHINE OPERATOR Narrative Authorizing ProviderResult TypeResult StatusH[facility] Clemencia US - BLOOD ORDERABLESFinal ResultPerforming OrganizationAddressCity/State/ZIP CodePhone Number [facility] [address] Lab (1st floor, no room number) [place] [address], [facility] * (ABNORMAL) Bilirubin direct (10/09/2025 1:15 PM SEALING MACHINE OPERATOR)ComponentValueRef Range Test MethodAnalysis TimePerformed AtPathologist SignatureBilirubin Tschtu26.23 (H)0.00 - 0.30 mg/dL10/09/2025 2:12 PM CST LABORATORYComment:As of 02/28/25, reference ranges and trending lines may vary depending on the testing location.Specimen (Source)Anatomical Location / LateralityCollection Method / VolumeCollection TimeReceived TimeBloodSTRUCTURE OF LEFT UPPER LIMB / Unknown Venipuncture / Efkwucu9110/09/2025 1:15 PM CST10/09/2025 1:36 PM SEALING MACHINE OPERATOR Narrative Authorizing ProviderResult TypeResult StatusElan Clemencia [employer]LAB - BLOOD ORDERABLESFinal ResultPerforming OrganizationAddressCity/State/ZIP CodePhone Number [facility] [address] Lab (1st floor, no room number) [place] [address], [facility] * (ABNORMAL) Lipase (10/09/2025 1:15 PM SEALING MACHINE OPERATOR)ComponentValueRef RangeTest Method Analysis TimePerformed AtPathologist ZolbzpoblSetdqj42(H)13 - 60 U/L112/10/2024 1:59 PM CST LABORATORYSpecimen (Source)Anatomical Location / Laterality Collection Method / VolumeCollection TimeReceived TimeBloodSTRUCTURE OF LEFT UPPER LIMB / UnknownVenipuncture / Uujgasq9510/09/2025 1:15 PM CST10/09/2025 1:36 PM SEALING MACHINE OPERATOR Narrative Authorizing ProviderResult TypeResult StatusZenon Khanna [employer]LAB - BLOOD ORDERABLESFinal ResultPerforming OrganizationAddressCity/State/ZIP CodePhone Number [facility] [address] Lab (1st floor, no room number) [place] [address], [facility] * (ABNORMAL) Comprehensive Metabolic Panel (Limited Occurrences) (10/09/2025 1:15 PM SEALING MACHINE OPERATOR)ComponentValueRef RangeTest MethodAnalysis TimePerformed At Pathologist RricmjuerMfkquf478107 - 145 mmol/L112/10/2024 2:26 PM [facility] LABORATORYPotassium3.0(L)3.4 - 5.3 mmol/L112/10/2024 2:26 PM [facility] LABORATORY Carbon Dioxide (CO2)2622 - 29 mmol/L112/10/2024 2:26 PM [facility] LABORATORYAnion Wax628 - 15 mmol/L112/10/2024 2:26 PM [facility] LABORATORYUrea Vtdttgbt79.0(H)6.0 - 20.0 mg/dL10/09/2025 2:26 PM [facility] LABORATORYCreatinine1.130.67 - 1.17 mg/dL 10/09/2025 2:26 PM [facility] LABORATORYGFR Kegbxgph46>60 mL/min/1.30u22710/09/2025 2:26 PM [facility] LABORATORYComment:eGFR calculated using 2020 CKD-EPI equation. Calcium8.0(L)8.8 - 10.4 mg/dL10/09/2025 2:26 PM [facility] EVAQSPQNDFHgyrwhyv6674 - 107 mmol/L112/10/2024 2:26 PM [facility] JYIFTXPOUZOnbaqha417(H)70 - 99 mg/dL 10/09/2025 2:26 PM [facility] LABORATORYAlkaline Ssxmcnxovoo648(H)40 - 150 U/L 10/09/2025 2:26 PM [facility] SAXDKXXPHXHUL478(H)0 - 45 U/L112/10/2024 2:26 PM [facility] TSUFYAHWIEERU953 - 70 U/L112/10/2024 2:26 PM [facility] LABORATORYProtein Total6.0 (L)6.4 - 8.3 g/dL10/09/2025 2:26 PM [facility] LABORATORYAlbumin2.7(L)3.5 - 5.2 g/dL10/09/2025 2:26 PM [facility] LABORATORYBilirubin Total21.0(HH)<=1.2 mg/dL 10/09/2025 2:26 PM [facility] LABORATORYSpecimen (Source)Anatomical Location / LateralityCollection Method / VolumeCollection TimeReceived TimeBloodSTRUCTURE OF LEFT UPPER LIMB / UnknownVenipuncture / Govopxa4410/09/2025 1:15 PM SEALING MACHINE OPERATOR 10/09/2025 1:36 PM [facility] Narrative Authorizing ProviderResult TypeResult StatusElan Lindenbaum MDLAB - BLOOD ORDERABLESFinal ResultPerforming OrganizationAddressCity/State/ZIP CodePhone Number [facility] [address] [facility] Lab (1st floor, no room number) [place] [address], [facility] documented in this encounter Visit Diagnoses Diagnosis Hepatitis- Primary Hepatitis, unspecified Hepatitis Hepatitis, unspecified 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) documented in this encounter Admitting Diagnoses Diagnosis Hepatitis Hepatitis, unspecified documented in this encounter Administered Medications Medication OrderMAR ActionAction DateDoseRateSite lidocaine 1 % 1-30 mL 1-30 mL, Subcutaneous, ONCE, On Wed10/09/25 at 1510, For 1 dose $Given by Other10/09/2025 3:09 PM CST10 mLsOther (see comments)documented in this encounter Active and Recently Administered Medications Times are shown in SEALING MACHINE OPERATOR.Medication Order/ albumin human 25 % injection 25-50 g 25-50 g, Intravenous, ONCE, On Wed10/09/25 at 1420, For 1 dose, DO NOT give albumin if less than 5Liters is removed. - Expected/actual fluid removed 5-6.99 L, give 25 g albumin - Expected/actual fluid removed 7-8.99 L, give 37.5 g albumin - Expected/actual fluid removed 9 L or GREATER, give 50 g albumin Max total dose of albumin is 50 g. Start medication in the IR intra procedural area when ordered by the provider and then continue infusion on the patient care unit post procedure, Reason for Use: Large Volume Paracentesis (GREATER than 5 L) * 1420 (Canceled Entry - Provider: Orders Generic Provider - Comment: Automatically canceled at discontinue of medication order) lidocaine 1 % 1-30 mL (COMPLETED) 1-30 mL, Subcutaneous, ONCE, On Wed10/09/25 at 1510, For 1 dose * 1509 ($Given by Other - Provider: Catherine Gomez RN - Comment: Dr Lomeli) documented in this encounter Additional Health Concerns AssessmentNoted TimePHQ-9 Depression Total Score: 7111/07/2024 1:50 PM SEALING MACHINE OPERATOR documented as of this encounter Care Teams Team MemberRelationshipSpecialtyStart DateEnd Date No Ref-Primary, Physician PCP - General05/28/23 [facility], Deepa [place] [address] [place] [address] PCP02/09/18 Abi Mcclellan MD [address] [place], [place] [phone] Assigned PCP09/09/25documented as of this encounter
--- OUTSIDE RECORDS SUMMARY | 2025-10-11 10:30 | XMS_ITS | Encounter Summary ---
Author Organization [facility] Address [address] [place] [address] Care Team Providers Care History Instructor Name Role Phone Clinic, Deepa [place] Unavailable [phone] No Ref-Primary, Physician Primary Care Provider Abi Mcclellan MD Unavailable Encounter Details DateTypeDepartmentCare Team (Latest Contact Info)Aurljwryics89/25/2025 10:30 AM CSTVirtual Visit [facility] [address] [address] Maris Reece MD [facility] [place] [place] [address] Itching (Primary Dx) Social History Tobacco UseTypesPacks/DayYears UsedDateSmoking Tobacco: LchruzYxtaukfypx9Mfss: 05/06/1997Smokeless Tobacco: CurrentChewAlcohol UseStandard Drinks/WeekComments No0 (1 standard drink = 0.6 oz pure alcohol)Quit January 01, 2017PHQ-2AnswerDate RecordedPHQ-2 Ibenf684/21/2025Adolescent EducationAnswerDate RecordedGetting School Help NeededNot on file08/01/2023Food [...] InformationValueDate RecordedSex Assigned at BirthNot on fileLegal PadJpuc32/04/2012 3:21 AM CSTGender IdentityNot on file Sexual OrientationNot on filedocumented as of this encounter Progress Notes * Maris Reece MD - 10/11/2025 10:30 AM CST Richard is a 60 year old who is being evaluated via a billable video visit. Assessment & Plan Itching Discussed with patient today that the itching is a result of his elevated bilirubin from multiple agents that accumulate due to cholestasis. Recommend Follow-up with his team tomorrow as he states his plan was. Told him antihistamines will typically not work in his case- but can try if desired. Recommend return to ED for admission as planned until he and his labs stabilize. Magaly Reece MD [facility] Danny Ramos is a 60 year old, presenting for the following health issues: No chief complaint on file. HPI Seen in ED 10/09 with ascites due to alcoholic cirrhosis with elevated liver tests (direct bili 16.23/t bili 21 and lipase 99)- had paracentesis then left AMA. Today notes increased itching all over body not knowing this is secondary to his elevated bili and need for further inpatient management. Wants something for the itch. Review of Systems Constitutional, neuro, ENT, endocrine, pulmonary, cardiac, gastrointestinal, genitourinary, musculoskeletal, integument and psychiatric systems are negative, except as otherwise noted. Objective Vitals: No vitals were obtained today due to virtual visit. Physical Exam GENERAL: alert and no distress EYES: Eyes grossly normal to inspection. No discharge or erythema, or obvious scleral/conjunctival abnormalities. RESP: No audible wheeze, cough, or visible cyanosis. SKIN: Visible skin yellowish. +scleral icterus noted B. NEURO: Cranial nerves grossly intact. Mentation and speech appropriate for age. PSYCH: Appropriate affect, tone, and pace of words Video-Visit Details Type of service: Video Visit Originating Location (pt. Location): Home Distant Location (provider location): Off-site Platform used for Video Visit: Luisa Signed Electronically by: DOLLY/MARCOS Virtual Urgent Care Provider ER HEAD documented in this encounter Plan of Treatment DateTypeDepartmentCare Team (Latest Contact Info)Npmcthbbjsz54/06/2026 1:30 PM CSTOffice Visit [facility] [address] [place] [address] Abi Mcclellan MD [address] [place] [address] 11/22/2025 8:30 AM CSTVirtual Visit [facility] [place] [address] [facility] [place] [address] Jillian Reeves [facility] [address] [place] [phone] 11/22/2025 9:00 AM CSTVirtual Visit [facility] [place] [address] [place] [phone] Abi Mcclellan MD [address] [place], [place] [phone] Elisa Colon DO [address] [place], [place] [address] documented as of this encounter Visit Diagnoses Diagnosis Itching- Primary Unspecified pruritic disorder documented in this encounter Additional Health Concerns AssessmentNoted TimePQ-9 Depression Total Score: 7111/07/2024 1:50 PM PORTER HEAD documented as of this encounter Care Teams Team MemberRelationshipSpecialtyStart DateEnd Date No Ref-Primary, Physician PCP - General05/28/23 [facility] [id number] [place] [id number] PCP02/09/18 Abi Mcclellan MD [address] [place], [place] [phone] Assigned PCP09/09/25documented as of this encounter
--- OUTSIDE RECORDS SUMMARY | 2025-10-12 23:38 | XMS_ITS | Encounter Summary ---
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 Unavailable No Ref-Primary, Physician Primary Care Provider Abi Mcclellan MD Unavailable Reason for Referral * Consultation (Routine: Next available opening) - Pending ReviewSpecialty Diagnoses / ProceduresReferred By ContactReferred To Contact Diagnoses Alcoholic cirrhosis of liver with ascites (H) Anne-Marie Perdomo MD [address] [place] [address] Phone: tel: fax: Referral IDStatusReasonStart DateExpiration DateVisits RequestedVisits [id number] Schedule Primary Care visit within 7 Days Comments Please be aware that coverage of these services is subject to the terms and limitations of your health insurance plan. Call member services at your health plan with any benefit or coverage questions. OR ENERGY CONSULTANT Reason for Visit * ReasonCommentsJaundice * Auth/CertSpecialtyDiagnoses / ProceduresReferred By ContactReferred To Contact EMERGENCY MEDICINE Diagnoses Alcoholic cirrhosis of liver with ascites (H) [facility] Emergency Dept [address] [place] [address] Phone: tel: fax: Referral IDStatusReasonStart DateExpiration DateVisits RequestedVisits [id number] Encounter Details DateTypeDepartmentCare Team (Latest Contact Info)Clmxwgeocyy49/26/2025 11:38 PM SENIOR ENERGY CONSULTANT - 10/14/2025 2:16 PM CSTHospital Encounter [place] [address] [facility] [address] [place] [address] Katie Messer, DO [facility] [address] [place], [place] [address] Crystal Sams MD [address] [place] [address] Alcoholic cirrhosis of liver with ascites (H) (Primary Dx); Jaundice; Hypokalemia; Anemia, unspecified type; Itching Discharge Disposition: Home or Self Care Social History Tobacco UseTypesPacks/DayYears UsedDateSmoking Tobacco: TvuttoQeasrxeapg4Rion: 05/06/1997Smokeless Tobacco: CurrentChewAlcohol UseStandard Drinks/WeekComments No0 (1 standard drink = 0.6 oz pure alcohol)Quit January 01, 2017AUDIT-CAnswerDate RecordedQ1: How often do you have a drink containing alcohol?Never10/13/2025 Average Number of DrinksNot on file10/13/2025Frequency of Binge DrinkingNot on file10/13/2025PHQ-2AnswerDate RecordedPHQ-2 Lquhc70711/07/2024dolescent Education AnswerDate RecordedGetting School Help NeededNot on file08/01/2023Food InsecurityAnswerDate RecordedWithin the past 12 months, did you worry that your food would run out before you got money to buy more?Yes10/15/2025Within the past 12 months, did the food you bought just not last and you didn???t have money to getmore?Yes10/15/2025Housing StabilityAnswerDate RecordedDo you have housing? (Housing is defined as stable permanent housing and does not include staying ou tside in a car, in a tent, in an abandoned building, in an overnight skilled nursing, or couch-surfing.)Yes10/15/2025re you worried about losing your housing?Yes 10/15/2025Financial Resource StrainAnswerDate RecordedWithin the past 12 months, have you or your family members you live with been unable to get utilities (heat, electricity) when it was really needed?Yes10/15/2025Transportation Needs AnswerDate RecordedWithin the past 12 months, has lack of transportation kept you from medical appointments, getting your medicines, non-medical meetings or appointments, work, or from getting things that you need?No10/15/2025 Interpersonal SafetyAnswerDate RecordedDo you feel physically and emotionally safe where you currently live?Yes10/15/2025Within the past 12 months, have you been hit, slapped, kicked or otherwise physically hurt by someone?No10/15/2025 Within the past 12 months, have you been humiliated or emotionally abused in other ways by your partner or ex-partner?No10/15/2025Sex and Gender Information ValueDate RecordedSex Assigned at BirthNot on fileLegal RetNuwf91/04/2012 3:21 AM CSTGender IdentityNot on fileSexual OrientationNot on filedocumented as of this encounter Last Filed Vital Signs Vital SignReadingTime TakenCommentsBlood Mhrrhtmp351/5810/14/2025 1:27 PM SENIOR ENERGY CONSULTANT Pspks880110/14/2025 1:27 PM YFEMolckykictm99.7 ??C (98 ??F)10/14/2025 1:27 PM SENIOR ENERGY CONSULTANT Respiratory Togi105312/15/2024 7:47 AM CSTOxygen Xneshskihw49%10/14/2025 1:27 PM CSTInhaled Oxygen Concentration--Bhayuf144.6 kg (237 lb 4.8 oz)10/13/2025 12:49 PM ZAOWlznmo858.8 cm (5' 10)10/12/2025 11:14 PM CSTBody Mass Index34.05 10/12/2025 11:14 PM CSTdocumented in this encounter Functional Status * Alcohol UseQuestionAnswerDate of AssessmentAuthorQ1: How often do you have a drink containing alcohol?Never10/13/2025 3:40 AM Crystal Lopez MD * Calculated C-SSRS Risk Score (Lifetime/Recent)AnswerDate of AssessmentAuthorNo Risk Zokmrnils93/26/2025 11:18 PM Sena Oleary RN * [place] Suicide Severity Rating Scale (Screener/Recent Self-Report)Question AnswerDate of AssessmentAuthor1. Wish to be (Past 1 Month)No10/12/2025 11:18 PM Sena Oleary RN2. Non-Specific Active Suicidal Thoughts (Past 1 Month)No10/12/2025 11:18 PM Sena Oleary RN6. Suicidal Behavior (Lifetime)No10/12/2025 11:18 PM Sena Oleary RN documented as of this encounter Discharge Summaries * Anne-Marie Perdomo MD - 10/14/2025 1:10 PM CST [facility] Discharge Summary Hospitalist Date of Admission: 10/12/2025 Date of Discharge: 10/14/2025 Discharging Provider: Anne-Marie Perdomo MD, MD Date of Service (when I saw the patient): 10/14/2025 Discharge Diagnoses Acute to subacute decompensated cirrhosis; with splenomegaly, coagulopathy with elevated INR and decreased platelets, mild ascites Anasarca Hypokalemia History of Present Illness Richard Fonseca is an 60 year old male who presented with acute to subacute decompensated cirrhosis. Hospital Course Summary of Stay: Richard Fonseca is a 60 year old male with a history of htn, alcohol use disorder who reports sobriety x 8 years (although looks to have had a few times when he's fallen off the wagon), alcoholic cirrhosis with HSM, portal vein htn, hyperbilirubinemia, hx of c diff colitis admitted on 10/12/2025 with jaundice For the past 2 months he's been turning progressively more yellow, urine has become fluorescent yellow, and he's having diffuse pruritus. He's also noted bilateral LE swelling that has been progressive for the past 8 months, and is inching his way up to his bili He denies any other sx: no cp/sob/n/v/d/abdominal pain, no palpitations, fever/chills He is adamant about maintaining his sobriety and that he hasn't drank alcohol for years. Notes thathe had been taking milk thistle, dandelion weed, zinc, b vitamins in order to help his liver but quit those 1 month ago. He does not take acetaminophen often. He last saw his GI doc 8 years ago. Has reestablished PCP and was started on losartan and furosemide neither of which he is taking although did get them filled. He was seen in our ER 4 days ago at which time LFTs were significantly elevated and he was recommended to be admitted at that time but refused. During that visit he felt as if he had a significant amount of ascites and underwent paracentesis with only 1.2 L removed. He returns today because he is willing to be admitted ER VSS and he is afebrile Exam is notable for severe diffuse jaundice and scleral icterus. Belly is soft but large. Has 1 + edema that tracks to his abdomen CMP mild hyponatremia 133, hypokalemic 3.0, mag is ok 1.9. bun/creat 24/1.2, BG 161 LFTs alk phos 276, AST/ALT 139/65, tbili 16, direct 12 Lipase 107 CBC hgb 8.0, platelets [address] a/p with contrast: Cirrhosis with marked splenomegaly and scattered ascites in the abdomen and pelvis Problem List: Acute to subacute decompensated cirrhosis; with splenomegaly, coagulopathy with elevated INR and decreased platelets, mild ascites Has gallstones but no e/o CBD dilation on CT scan. Also categorically denies drinking any alcohol for couple of years. No doesn't take excessive amounts of apap. I reviewed the supplements he was taking and none appear associated with liver problems. Did have 1.2 L ascitic fluid removed during ER visit 10/09 LFT pattern consistent with alcohol -Appreciate GI input. Started on spironolactone. Will continue Lasix -Will continue benadryl for itching. -Started on cholestyramine 4 g twice a day per gastroenterology. -Discussed with Dr. Jean. He recommends follow up with transplant hepatology at [facility]. Follow up instruction added to discharge orders. Patient very anxious to leave. Okay to discharge per GI with pending lab results to be followed as outpatient. Josie Has 1 + LE edema tracking all the way up to his abdomen . Alb 2.5. reports 15-20 # weight gain overpast 2 months but states that he's been eating poorly as well He was given Lasix 20 mg IV Q4 hours for 2 doses. -Started on Lasix 40 mg daily and spironolactone 50 mg daily. -Will monitor electrolytes Hypokalemia Mag is ok at 1.9 -K replacement protocol ordered but will need to monitor renal function closely -Will closely monitor electrolytes DVT Prophylaxis: Pneumatic Compression Devices Code Status: Full Code Functional Status: I believe independent Padgett: not needed Access: PIV Significant Results and Procedures Results for orders placed or performed during the hospital encounter of 10/12/25 Abd/pelvis CT, IV contrast only TRAUMA / AAA Narrative EXAM: CT ABDOMEN PELVIS W CONTRAST LOCATION: [facility] DATE: 10/13/2025 INDICATION: worsening ascites jaundice COMPARISON: CT from 05/16/2023. TECHNIQUE: CT scan of the abdomen and pelvis was performed following injection of IV contrast. Multiplanar reformats were obtained. Dose reduction techniques were used. CONTRAST: 100 mL Omni 350 FINDINGS: LOWER CHEST: Bibasilar atelectasis or fibrosis. HEPATOBILIARY: Nodular liver surface contour. Recannulated paraumbilical vein. Tiny gallstones. PANCREAS: Normal. SPLEEN: The spleen is markedly enlarged, measuring 20 cm anteroposterior. ADRENAL GLANDS: Normal. KIDNEYS/BLADDER: There is a 2 mm nonobstructing left lower pole renal stone. There are 1 mm and 2 mm stones in the right renal upper and lower poles, respectively. No hydronephrosis. Bladder is nearly empty. BOWEL: Stomach is decompressed. No small bowel obstruction or free air. Normal appendix. Small to moderate amount of ascites. LYMPH NODES: Normal. VASCULATURE: Large retroperitoneal portosystemic venous collaterals. Aortoiliac atherosclerotic calcification without aneurysm. PELVIC ORGANS: Ascites. MUSCULOSKELETAL: Chronic anterior wedging deformity at T11. Body wall edema. There is a small supraumbilical ventral hernia containing ascites. Impression IMPRESSION: 1. Cirrhosis with marked splenomegaly and scattered ascites in the abdomen and pelvis. 2. Gallstones. 3. Nonobstructing renal stones. US Abdomen Complete w Doppler Complete Narrative EXAM: US ABDOMEN COMPLETE WITH DOPPLER COMPLETE LOCATION: [facility] DATE: 10/13/2025 INDICATION: Evaluate for common bile duct stone and PV thrombosis in setting of subacutely decompensated cirrhosis. COMPARISON: CT abdomen pelvis 10/13/2025. TECHNIQUE: Complete abdominal ultrasound. Color flow with spectral Doppler and waveform analysis performed. FINDINGS: GALLBLADDER: Cholelithiasis. No gallbladder wall thickening or pericholecystic fluid. Sonographic Pang's sign is negative. BILE DUCTS: No biliary dilatation. The common duct measures 6 mm. LIVER: Cirrhotic liver morphology. No suspicious liver observations. RIGHT KIDNEY: 13.6 cm. Normal cortical thickness and echogenicity. No hydronephrosis or sonographically detectable calculi. LEFT KIDNEY: 13.8 cm. Normal cortical thickness and echogenicity. No hydronephrosis or sonographically detectable calculi. SPLEEN: Enlarged, measuring 14.2 cm. Homogenous parenchyma. PANCREAS: The visualized portions are normal. AORTA: Normal in caliber. IVC: Normal where visualized. Small amount of upper abdominal ascites. ABDOMINAL DUPLEX: Right portal, left portal, and main portal veins are patent with hepatofugal flow. Splenic vein at the splenic hilum is patent with anterograde flow. Left, middle, and right hepaticveins are patent with anterograde flow. Hepatic arteries are patent with normal spectral Doppler waveforms. IVC is patent. Impression IMPRESSION: 1. Cirrhosis, with features of portal hypertension including splenomegaly and a small amount of ascites. 2. Reversal of flow throughout the portal veins, as can be seen with portal hypertension. The liverDoppler exam is otherwise normal. 3. Cholelithiasis. No evidence of acute cholecystitis. 4. No biliary ductal dilation. 5. Normal kidneys, without hydronephrosis. Pending Results These results will be followed up by transplant team at [facility] Unresulted Labs Ordered in the Past 30 Days of this Admission Date and Time Order Name Status Description 10/13/2025 1:17 PM Phosphatidylethanol (PEth), Whole Blood In process 10/13/2025 1:17 PM F Actin EIA with reflex In process 10/13/2025 1:17 PM Alpha 1 Antitrypsin In process 10/13/2025 1:17 PM Ceruloplasmin In process 10/13/2025 1:17 PM Mitochondrial M2 Antibody IgG In process Code Status Full Code Primary Care Physician Physician No Ref-Primary Discharge Disposition Discharged to home Condition at discharge: Stable Consultations This Hospital Stay GASTROENTEROLOGY IP CONSULT CARE MANAGEMENT / SOCIAL WORK IP CONSULT Time Spent on this Encounter Anne-Marie Thompson MD, MD, personally saw the patient today and spent greater than 30 minutes discharging this patient. Discharge Orders Hospital to Primary Care - Establish PCP Referral Reason for your hospital stay Decompensated liver cirrhosis Activity Your activity upon discharge: activity as tolerated Follow Up Follow up with transplant team at [facility]. Diet Follow this diet upon discharge: Current Diet:Orders Placed This Encounter Combination Diet Regular Diet Adult; 2 gm Sodium Diet Discharge Medications Current Discharge Medication List START taking these medications Details cholestyramine (QUESTRAN) 4 g packet Take 1 packet (4 g) by mouth 2 times daily. Qty: 60 packet, Refills: 0 Associated Diagnoses: Jaundice; Itching diphenhydrAMINE (BENADRYL) 25 MG capsule Take 1 capsule (25 mg) by mouth every 6 hours as needed for itching. Qty: 30 capsule, Refills: 0 Associated Diagnoses: Jaundice; Itching spironolactone (ALDACTONE) 50 MG tablet Take 1 tablet (50 mg) by mouth daily. Qty: 30 tablet, Refills: 0 Associated Diagnoses: Alcoholic cirrhosis of liver with ascites (H) CONTINUE these medications which have CHANGED Details furosemide (LASIX) 20 MG tablet Take 2 tablets (40 mg) by mouth daily. Qty: 60 tablet, Refills: 0 Associated Diagnoses: Alcoholic cirrhosis of liver with ascites (H) CONTINUE these medications which have NOT CHANGED Details oelywjyl-etkrlyeub-jhsHNQPDmwkby (MAXITROL) 0.1 % ophthalmic suspension Please instill 1-2 drops into both eyes 4 times daily for 7 days Qty: 10 mL, Refills: 0 Associated Diagnoses: Acute bacterial conjunctivitis of both eyes Allergies Allergies[1] Data [1] Allergies Allergen Reactions Eicosapentaenoic Acid (Epa) (Fish) Anaphylaxis Fish Protein-Containing Drug Products Anaphylaxis Has had IV contrast 12/2015 without issue Penicillins Hives Has tolerated ampicillin/sulbactam Ibuprofen Hives OR ENERGY CONSULTANT documented in this encounter Medications at Time of Discharge MedicationSigDispense QuantityRefillsLast FilledStart DateEnd Date cholestyramine (QUESTRAN) 4 g packet Indications:Jaundice,ItchingTake 1 packet (4 g) by mouth 2 times daily. 60 packet diphenhydrAMINE (BENADRYL) 25 MG capsule Indications:Jaundice,ItchingTake 1 capsule (25 mg) by mouth every 6 hours as needed for itching. 30 capsule 10/14/2025 furosemide (LASIX) 20 MG tablet Indications:Alcoholic cirrhosis of liver with ascites (H)Take 2 tablets (40 mg) by mouth daily. 60 tablet / bcrcjuur-btvwrhymd-jliJNMIUrsasi (MAXITROL) 0.1 % ophthalmic suspension Indications:Acute bacterial conjunctivitis of both eyesPlease instill 1-2 drops into both eyes 4 times daily for 7 days 10 mL 09/28/2023 spironolactone (ALDACTONE) 50 MG tablet Indications:Alcoholic cirrhosis of liver with ascites (H)Take 1 tablet (50 mg) by mouth daily. 30 tablet documented as of this encounter Progress Notes * Pio Hollins RN - 10/14/2025 2:11 PM CST Patient hospitalized for Alcohol cirrhosis of liver without ascites. Cleared for discharge to home with self care today per MD. Discharge instructions, medications including Lasix, Aldactone, benadryl, cholestyramine, and follow-ups reviewed with patient in detail. [facility] Patient verbalized understanding of discharge instructions. Belongings were returned to patient at time of discharge. Self drive to home. OR ENERGY CONSULTANT * Suhas Jean MD - 10/14/2025 12:59 PM CST Images from the original note were not included. GASTROENTEROLOGY PROGRESS NOTE SUBJECTIVE: - Bilirubin downtrending today - Itching a bit better OBJECTIVE: BP 107/60 (BP Location: Right arm) Pulse 83 Temp 97.8 ??F (36.6 ??C) (Oral) Resp 16 Ht 1.778 m (5' 10) Wt 107.6 kg (237 lb 4.8 oz) SpO2 96% BMI 34.05 kg/m?? Temp (24hrs), Av ??F (36.7 ??C), Min:97.8 ??F (36.6 ??C), Max:98.1 ??F (36.7 ??C) Patient Vitals for the past 72 hrs: Weight 10/13/25 1249 107.6 kg (237 lb 4.8 oz) 10/12/25 2314 113.3 kg (249 lb 12.5 oz) Intake/Output Summary (Last 24 hours) at 10/14/2025 1259 Last data filed at 10/13/2025 2200 Gross per 24 hour Intake 480 ml Output -- Net 480 ml General Appearance: alert, oriented x3, no acute distress. Eyes: sclera anicteric. ENT: oropharynx clear, no thrush. Resp: Unlabored breathing GI: Soft, NABS, NT/ND. Neuro: no asterixis. Labs: Recent Labs Lab Test 10/14/25 0641 10/13/25 0543 10/13/25 0006 10/09/25 1315 08/26/23 1025 WBC 5.46 6.25 7.18 5.97 2.9* HGB 8.3* 8.3* 8.0* 8.4* 10.5* MCV 77.2* 76.5* 77.1* 78.5 75* PLT 103* 110* 115* 118* 108* INR -- -- 1.84* 1.82* 1.32* Recent Labs Lab Test 10/14/25 0641 10/14/25 0101 10/13/25 1704 10/13/25 0543 10/13/25 0006 POTASSIUM 3.6 3.4 2.8* 2.8* 3.0* CHLORIDE 98 -- -- 96* 96* CO2 26 -- -- 23 23 BUN 18.2 -- -- 21.7* 23.5* ANIONGAP 10 -- -- 13 14 Recent Labs Lab Test 10/14/25 0641 10/13/25 0543 10/13/25 0006 10/09/25 1603 10/09/25 1315 05/17/23 0618 05/16/23 1824 05/16/23 1735 ALBUMIN 2.6* 2.6* 2.5* -- 2.7* < > -- 3.2* BILITOTAL 14.8* 15.7* 16.0* -- 21.0* < > -- 5.7* ALT 64 65 65 -- 57 < > -- 43 AST 135* 144* 139* -- 121* < > -- 112* PROTEIN -- -- -- Negative -- -- Negative -- LIPASE -- -- 107* -- 99* -- -- 61* < > = values in this interval not displayed. Assessment: Richard Fonseca is a 60 year old male with PMH HTN, EtOH use disorder (now sober x8 years), EtOH cirrhosis, admitted with jaundice. Decompensated cirrhosis with ascites, edema Cholestasis Unclear the cause for the acute worsening and decompensation. No mass appreciated on CT. He reportedly has not been drinking. Considered DILI due to medication - the dose of tylenol doesn't seem to have been unsafe. Consider DILI due to herbal supplements. MELD 3.0: 28 at 10/14/2025 6:41 AM MELD-Na: 26 at 10/14/2025 6:41 AM Calculated from: Serum Creatinine: 1.2 mg/dL at 10/14/2025 6:41 AM Serum Sodium: 134 mmol/L at 10/14/2025 6:41 AM Total Bilirubin: 14.8 mg/dL at 10/14/2025 6:41 AM Serum Albumin: 2.6 g/dL at 10/14/2025 6:41 AM INR(ratio): 1.84 at 10/13/2025 12:06 AM Age at listing (hypothetical): 60 years Sex: Male at 10/14/2025 6:41 AM RECOMMENDATIONS: - Added on a variety of liver labs - still pending - Added on PETH - pending - Can add spironolactone 50mg to his lasix - which may help with electrolyte balance and fluid overload - For pruritus - can try cholestyramine 4-16g/day (will start at 4g BID in the hospital, can go up or down pending progress). May be constipating and need to add laxatives. - Patient should re-establish with his [facility]/transplant team - most likely when discharged if thingsare going the right way 25 minutes of total time was spent providing patient care, including patient evaluation, reviewing documentation/test results, and video recorder mechanic. Suhas Jean MD Thank you for the opportunity to participate in the care of this patient. Please feel free to call with any questions or concerns. . OR ENERGY CONSULTANT * Anne-Marie Perdomo MD - 10/13/2025 1:20 PM CST [facility] Hospitalist Progress Note Provider : Anne-Marie Perdomo MD, MD Date of Service (when I saw the patient): 10/13/2025 Assessment & Plan Summary of Stay: Richard Fonseca is a 60 year old male with a history of htn, alcohol use disorder who reports sobriety x 8 years (although looks to have had a few times when he's fallen off the wagon), alcoholic cirrhosis with HSM, portal vein htn, hyperbilirubinemia, hx of c diff colitis admitted on 10/12/2025 with jaundice For the past 2 months he's been turning progressively more yellow, urine has become fluorescent yellow, and he's having diffuse pruritus. He's also noted bilateral LE swelling that has been progressive for the past 8 months, and is inching his way up to his bili He denies any other sx: no cp/sob/n/v/d/abdominal pain, no palpitations, fever/chills He is adamant about maintaining his sobriety and that he hasn't drank alcohol for years. Notes thathe had been taking milk thistle, dandelion weed, zinc, b vitamins in order to help his liver but quit those 1 month ago. He does not take acetaminophen often. He last saw his GI doc 8 years ago. Has reestablished PCP and was started on losartan and furosemide neither of which he is taking although did get them filled. He was seen in our ER 4 days ago at which time LFTs were significantly elevated and he was recommended to be admitted at that time but refused. During that visit he felt as if he had a significant amount of ascites and underwent paracentesis with only 1.2 L removed. He returns today because he is willing to be admitted ER VSS and he is afebrile Exam is notable for severe diffuse jaundice and scleral icterus. Belly is soft but large. Has 1 + edema that tracks to his abdomen CMP mild hyponatremia 133, hypokalemic 3.0, mag is ok 1.9. bun/creat 24/1.2, BG 161 LFTs alk phos 276, AST/ALT 139/65, tbili 16, direct 12 Lipase 107 CBC hgb 8.0, platelets [address] a/p with contrast: Cirrhosis with marked splenomegaly and scattered ascites in the abdomen and pelvis Problem List: Acute to subacute decompensated cirrhosis; with splenomegaly, coagulopathy with elevated INR and decreased platelets, mild ascites Has gallstones but no e/o CBD dilation on CT scan. Also categorically denies drinking any alcohol for couple of years. No doesn't take excessive amounts of apap. I reviewed the supplements he was taking and none appear associated with liver problems. Did have 1.2 L ascitic fluid removed during ER visit 10/09 LFT pattern consistent with alcohol -Appreciate GI input. Started on spironolactone. Will continue Lasix -Will continue benadryl for itching. -Started on cholestyramine 4 g twice a day per gastroenterology. Josie Has 1 + LE edema tracking all the way up to his abdomen . Alb 2.5. reports 15-20 # weight gain overpast 2 months but states that he's been eating poorly as well He was given Lasix 20 mg IV Q4 hours for 2 doses. -Will start on Lasix 40 mg daily and spironolactone 50 mg daily. -Will monitor electrolytes Hypokalemia Mag is ok at 1.9 -K replacement protocol ordered but will need to monitor renal function closely -Will closely monitor electrolytes DVT Prophylaxis: Pneumatic Compression Devices Code Status: Full Code Functional Status: I believe independent Apdgett: not needed Access: PIV DVT Prophylaxis: Pneumatic Compression Devices Code Status: Full Code Medically Ready for Discharge: Anticipated in 2-4 Days Anne-Marie Perdomo MD Interval History Patient seen and examined. Chart reviewed. Patient stated that -Data reviewed today: I reviewed all new labs and imaging results over the last 24 hours. I personally reviewed Physical Exam Temp: 97.7 ??F (36.5 ??C) Temp src: Oral BP: 122/56 Pulse: 85 Resp: 16 SpO2: 98 % O2 Device: None (Room air) Vitals: 10/12/25 2314 10/13/25 1249 Weight: 113.3 kg (249 lb 12.5 oz) 107.6 kg (237 lb 4.8 oz) Vital Signs with Ranges Temp: [97.7 ??F (36.5 ??C)-98.6 ??F (37 ??C)] 97.7 ??F (36.5 ??C) Pulse: [85-92] 85 Resp: [16-21] 16 BP: (113-141)/(56-75) 122/56 SpO2: [94 %-98 %] 98 % I/O last 3 completed shifts: In: - Out: 1550 [Urine:1550] GEN: Alert, oriented x 3, appears comfortable, NAD. HEENT: Normocephalic/atraumatic, no scleral icterus, no nasal discharge, mouth moist. CV: Regular rate and rhythm, no murmur or JVD. S1 + S2 noted, no S3 or S4. LUNGS: Clear to auscultation bilaterally without rales/rhonchi/wheezing/retractions. Symmetric chest rise on inhalation noted. ABD: Active bowel sounds, soft, non-tender/non-distended. No rebound/guarding/rigidity. EXT: No edema or cyanosis. Hands/feet warm to touch with good signs of peripheral perfusion. No joint synovitis noted. SKIN: Dry to touch, no exanthems noted in the visualized areas. NEURO: Symmetric muscle strength, sensation to touch grossly intact. No new focal deficits appreciated. Medications Current Facility-Administered Medications[1] Current Facility-Administered Medications Medication Dose Route Frequency Provider Last Rate Last Admin cholestyramine (QUESTRAN) Packet 4 g 1 packet Oral BID Suhas Jean MD sodium chloride (PF) 0.9% PF flush 3 mL 3 mL Intracatheter Q8H Crystal Sams MD 3 mL at 10/13/25 1218 spironolactone (ALDACTONE) tablet 50 mg 50 mg Oral Daily Suhas Jean MD Data Recent Labs Lab 10/13/25 0543 10/13/25 0014 10/13/25 0006 10/09/25 1315 WBC 6.25 -- 7.18 5.97 HGB 8.3* -- 8.0* 8.4* MCV 76.5* -- 77.1* 78.5 PLT 110* -- 115* 118* INR -- -- 1.84* 1.82* NA 132* -- 133* 136 POTASSIUM 2.8* -- 3.0* 3.0* CHLORIDE 96* -- 96* 98 CO2 23 -- 23 26 BUN 21.7* -- 23.5* 21.0* CR 1.21* -- 1.19* 1.13 ANIONGAP 13 -- 14 12 KOFI 7.8* -- 7.9* 8.0* GLC 91 161* 165* 145* ALBUMIN 2.6* -- 2.5* 2.7* PROTTOTAL 6.3* -- 6.1* 6.0* BILITOTAL 15.7* -- 16.0* 21.0* ALKPHOS 269* -- 276* 246* ALT 65 -- 65 57 AST 144* -- 139* 121* LIPASE -- -- 107* 99* Recent Results (from the past 24 hours) Abd/pelvis CT, IV contrast only TRAUMA / AAA Narrative EXAM: CT ABDOMEN PELVIS W CONTRAST LOCATION: [facility] DATE: 10/13/2025 INDICATION: worsening ascites jaundice COMPARISON: CT from 05/16/2023. TECHNIQUE: CT scan of the abdomen and pelvis was performed following injection of IV contrast. Multiplanar reformats were obtained. Dose reduction techniques were used. CONTRAST: 100 mL Omni 350 FINDINGS: LOWER CHEST: Bibasilar atelectasis or fibrosis. HEPATOBILIARY: Nodular liver surface contour. Recannulated paraumbilical vein. Tiny gallstones. PANCREAS: Normal. SPLEEN: The spleen is markedly enlarged, measuring 20 cm anteroposterior. ADRENAL GLANDS: Normal. KIDNEYS/BLADDER: There is a 2 mm nonobstructing left lower pole renal stone. There are 1 mm and 2 mm stones in the right renal upper and lower poles, respectively. No hydronephrosis. Bladder is nearly empty. BOWEL: Stomach is decompressed. No small bowel obstruction or free air. Normal appendix. Small to moderate amount of ascites. LYMPH NODES: Normal. VASCULATURE: Large retroperitoneal portosystemic venous collaterals. Aortoiliac atherosclerotic calcification without aneurysm. PELVIC ORGANS: Ascites. MUSCULOSKELETAL: Chronic anterior wedging deformity at T11. Body wall edema. There is a small supraumbilical ventral hernia containing ascites. Impression IMPRESSION: 1. Cirrhosis with marked splenomegaly and scattered ascites in the abdomen and pelvis. 2. Gallstones. 3. Nonobstructing renal stones. [1] Current Facility-Administered Medications Medication Dose Route Frequency Provider Last Rate Last Admin OR ENERGY CONSULTANT * Dusty Mcgee RN - 10/13/2025 9:45 AM CST [facility] ED Boarding Nurse Handoff Addendum Report: Date/time: 10/13/2025, 9:45 AM Activity Level: standby Fall Risk: No Active Infusions: none Current Meds Due: none Current care needs: electrolyte management, Oxygen requirements (liters/min and/or FiO2): none Respiratory status: Room air Vital signs (within last 30 minutes): Vitals: 10/13/25 0018 10/13/25 0100 10/13/25 0843 10/13/25 1225 BP: 113/70 114/57 125/75 BP Location: Right arm Pulse: 86 87 85 Resp: 18 21 Temp: 97.7 ??F (36.5 ??C) 97.7 ??F (36.5 ??C) TempSrc: Oral Oral SpO2: 96% 94% 97% Weight: Height: Focused assessment within last 30 minutes: Aox4. Denies having any pain, continues to have generalized itching- PRN benadryl given. Remained NPO until abdominal ultrasound obtained. Transitioned to regular 2 gm sodium diet. K+ 2.8, replaced per protocol- redraw scheduled for this evening. GI following. Standby assist. ED Boarding Nurse name: Dusty Mcgee RN OR ENERGY CONSULTANT documented in this encounter H&P Notes * Crystal Sams MD - 10/13/2025 4:19 AM CST History and Physical Richard Fonseca Date of : 1965 Age: [age] year old Date of Admission: 10/12/2025 Primary care provider: No Ref-Primary, Physician Assessment and Plan: Summary of Stay: Richard Fonseca is a 60 year old male with a history of htn, alcohol use disorder who reports sobriety x 8 years (although looks to have had a few times when he's fallen off the wagon), alcoholic cirrhosis with HSM, portal vein htn, hyperbilirubinemia, hx of c diff colitis admitted on 10/12/2025 with jaundice For the past 2 months he's been turning progressively more yellow, urine has become fluorescent yellow, and he's having diffuse pruritus. He's also noted bilateral LE swelling that has been progressive for the past 8 months, and is inching his way up to his bili He denies any other sx: no cp/sob/n/v/d/abdominal pain, no palpitations, fever/chills He is adamant about maintaining his sobriety and that he hasn't drank alcohol for years. Notes thathe had been taking milk thistle, dandelion weed, zinc, b vitamins in order to help his liver but quit those 1 month ago. He does not take acetaminophen often. He last saw his GI doc 8 years ago. Has reestablished PCP and was started on losartan and furosemide neither of which he is taking although did get them filled. He was seen in our ER 4 days ago at which time LFTs were significantly elevated and he was recommended to be admitted at that time but refused. During that visit he felt as if he had a significant amount of ascites and underwent paracentesis with only 1.2 L removed. He returns today because he is willing to be admitted ER VSS and he is afebrile Exam is notable for severe diffuse jaundice and scleral icterus. Belly is soft but large. Has 1 + edema that tracks to his abdomen CMP mild hyponatremia 133, hypokalemic 3.0, mag is ok 1.9. bun/creat 24/1.2, BG 161 LFTs alk phos 276, AST/ALT 139/65, tbili 16, direct 12 Lipase 107 CBC hgb 8.0, platelets [address] a/p with contrast: Cirrhosis with marked splenomegaly and scattered ascites in the abdomen and pelvis Problem List: Acute to subacute decompensated cirrhosis; with splenomegaly, coagulopathy with elevated INR and decreased platelets, mild ascites Has gallstones but no e/o CBD dilation on CT scan. Also categorically denies drinking any alcohol for couple of years. Doesn't take excessive amounts of apap. I reviewed the supplements he was takingand none appear associated with liver problems. Did have 1.2 L ascitic fluid removed during ER visit 10/09 LFT pattern consistent with alcohol -ck AUS to ensure to CBD dilation suggestive of a stone or portal vein thrombosis -ck ferritin and acute viral hepatitis panel -I've held off on antibody/ceruloplasmin testing and will defer to GI -[facility] consultation to assist with management during hospitalization and to arrange for follow-up Josie Has 1 + LE edema tracking all the way up to his abdomen . Alb 2.5. reports 15-20 # weight gain overpast 2 months but states that he's been eating poorly as well Trial furosemide 20 mg x 1 and assess response: Hypokalemia Mag is ok at 1.9 K replacement protocol ordered but will need to monitor renal function closely DVT Prophylaxis: Pneumatic Compression Devices Code Status: Full Code Functional Status: I believe independent Padgett: not needed Access: PIV Time spent 71 minutes reviewing epic including notes/labs/prior hx, current medications. In addition to interviewing and examining the patient, updated patient and family regarding plan of care Chief Complaint: Jaundice History of Present Illness: Richard Fonseca is a 60 year old male with a history of htn, alcohol use disorder who reports sobriety x 8 years (although looks to have had a few times when he's fallen off the wagon), alcoholic cirrhosis with HSM, portal vein htn, hyperbilirubinemia, hx of c diff colitis admitted on 10/12/2025 withjaundice For the past 2 months he's been turning progressively more yellow, urine has become fluorescent yellow, and he's having diffuse pruritus. He's also noted bilateral LE swelling that has been progressive for the past 8 months, and is inching his way up to his bili He denies any other sx: no cp/sob/n/v/d/abdominal pain, no palpitations, fever/chills He is adamant about maintaining his sobriety and that he hasn't drank alcohol for years. Notes thathe had been taking milk thistle, dandelion weed, zinc, b vitamins in order to help his liver but quit those 1 month ago. He does not take acetaminophen often. He last saw his GI doc 8 years ago. Has reestablished PCP and was started on losartan and furosemide neither of which he is taking although did get them filled. He was seen in our ER 4 days ago at which time LFTs were significantly elevated and he was recommended to be admitted at that time but refused. During that visit he felt as if he had a significant amount of ascites and underwent paracentesis with only 1.2 L removed. He returns today because he is willing to be admitted ER VSS and he is afebrile Exam is notable for severe diffuse jaundice and scleral icterus. Belly is soft but large. Has 1 + edema that tracks to his abdomen CMP mild hyponatremia 133, hypokalemic 3.0, mag is ok 1.9. bun/creat 24/1.2, BG 161 LFTs alk phos 276, AST/ALT 139/65, tbili 16, direct 12 Lipase 107 CBC hgb 8.0, platelets [address] a/p with contrast: Cirrhosis with marked splenomegaly and scattered ascites in the abdomen and pelvis The history is obtained in discussion with the ER provider Katie Messer MD and the patient withat best fair reliability Epic and Care everywhere were extensively reviewed Past Medical History: Past Medical History: Diagnosis Date C. difficile colitis 01/17/2017 Cirrhosis of liver (H) alcohol related Hypertension Seizures (H) Past Surgical History: Past Surgical History: Procedure Laterality Date ESOPHAGOSCOPY, GASTROSCOPY, DUODENOSCOPY (EGD), COMBINED N/A 05/17/2023 Procedure: ESOPHAGOGASTRODUODENOSCOPY; Surgeon: Umer Magaña MD; Location: OR Social History: Social History Tobacco Use Smoking status: Former Current packs/day: 0.00 Types: Cigarettes Quit date: 05/06/1997 Years since quittin.4 Smokeless tobacco: Current Types: Chew Substance Use Topics Alcohol use: No Comment: Quit January 01, 2017 Family History: Family History Problem Relation Age of Onset Unknown/Adopted Father Diabetes Father Type II Unknown/Adopted Maternal Grandmother Substance Abuse Maternal Grandfather Depression No family hx of Anxiety Disorder No family hx of Schizophrenia No family hx of Bipolar Disorder No family hx of Suicide No family hx of Dementia No family hx of Roney Disease No family hx of Parkinsonism No family hx of Autism Spectrum Disorder No family hx of Intellectual Disability No family hx of Mental Illness No family hx of Allergies: Allergies[1] Medications: Has been prescribed both losartan and furosemide neither of which he is taking. Had been on b vitamin, zinc, milk thistle, dandelion weed supplements but quit those a month ago Review of Systems: A Comprehensive greater than 10 system review of systems was carried out. Pertinent positives and negatives are noted above. Otherwise negative for contributory information. Physical Exam: Blood pressure 113/70, pulse 86, temperature 98.6 ??F (37 ??C), temperature source Oral, resp. rate20, height 1.778 m (5' 10), weight 113.3 kg (249 lb 12.5 oz), SpO2 96%. Exam: General: Pleasant nad looks stated age, diffusely severely jaundiced HEENT: Head nc/at sclera significantly icteric PER Neck is supple Lungs: cta b nl effort CV: RRR no m/r/g 1 + bilateral le edema tracks up to abdomen Abd: S/nt/nd no r/g- large Neuro: Cn 2-12 grossly intact and [place] Alert and oriented affect appropriate Skin: W/d no c/c Data: Results for orders placed or performed during the hospital encounter of 10/12/25 Abd/pelvis CT, IV contrast only TRAUMA / AAA Status: None Narrative EXAM: CT ABDOMEN PELVIS W CONTRAST LOCATION: [facility] DATE: 10/13/2025 INDICATION: worsening ascites jaundice COMPARISON: CT from 05/16/2023. TECHNIQUE: CT scan of the abdomen and pelvis was performed following injection of IV contrast. Multiplanar reformats were obtained. Dose reduction techniques were used. CONTRAST: 100 mL Omni 350 FINDINGS: LOWER CHEST: Bibasilar atelectasis or fibrosis. HEPATOBILIARY: Nodular liver surface contour. Recannulated paraumbilical vein. Tiny gallstones. PANCREAS: Normal. SPLEEN: The spleen is markedly enlarged, measuring 20 cm anteroposterior. ADRENAL GLANDS: Normal. KIDNEYS/BLADDER: There is a 2 mm nonobstructing left lower pole renal stone. There are 1 mm and 2 mm stones in the right renal upper and lower poles, respectively. No hydronephrosis. Bladder is nearly empty. BOWEL: Stomach is decompressed. No small bowel obstruction or free air. Normal appendix. Small to moderate amount of ascites. LYMPH NODES: Normal. VASCULATURE: Large retroperitoneal portosystemic venous collaterals. Aortoiliac atherosclerotic calcification without aneurysm. PELVIC ORGANS: Ascites. MUSCULOSKELETAL: Chronic anterior wedging deformity at T11. Body wall edema. There is a small supraumbilical ventral hernia containing ascites. Impression IMPRESSION: 1. Cirrhosis with marked splenomegaly and scattered ascites in the abdomen and pelvis. 2. Gallstones. 3. Nonobstructing renal stones. Comprehensive Metabolic Panel (Limited Occurrences) Status: Abnormal Result Value Ref Range Sodium 133 (L) 135 - 145 mmol/L Potassium 3.0 (L) 3.4 - 5.3 mmol/L Carbon Dioxide (CO2) 23 22 - 29 mmol/L Anion Gap 14 7 - 15 mmol/L Urea Nitrogen 23.5 (H) 6.0 - 20.0 mg/dL Creatinine 1.19 (H) 0.67 - 1.17 mg/dL GFR Estimate 71 >60 mL/min/1.73m2 Calcium 7.9 (L) 8.8 - 10.4 mg/dL Chloride 96 (L) 98 - 107 mmol/L Glucose 165 (H) 70 - 99 mg/dL Alkaline Phosphatase 276 (H) 40 - 150 U/L AST 139 (H) 0 - 45 U/L ALT 65 0 - 70 U/L Protein Total 6.1 (L) 6.4 - 8.3 g/dL Albumin 2.5 (L) 3.5 - 5.2 g/dL Bilirubin Total 16.0 (HH) <=1.2 mg/dL Lipase Status: Abnormal Result Value Ref Range Lipase 107 (H) 13 - 60 U/L INR Status: Abnormal Result Value Ref Range INR 1.84 (H) 0.85 - 1.15 PT 20.9 (H) 11.8 - 14.8 Seconds Ethanol Level Blood Status: Normal Result Value Ref Range Ethanol Level Blood <0.01 <=0.01 g/dL Bilirubin direct Status: Abnormal Result Value Ref Range Bilirubin Direct 11.99 (H) 0.00 - 0.30 mg/dL CBC with platelets and differential Status: Abnormal Result Value Ref Range WBC Count 7.18 4.00 - 11.00 10e3/uL RBC Count 3.45 (L) 4.40 - 5.90 10e6/uL Hemoglobin 8.0 (L) 13.3 - 17.7 g/dL Hematocrit 26.6 (L) 40.0 - 53.0 % MCV 77.1 (L) 78.0 - 100.0 fL MCH 23.2 (L) 26.5 - 33.0 pg MCHC 30.1 (L) 31.5 - 36.5 g/dL RDW 23.1 (H) 10.0 - 15.0 % Platelet Count 115 (L) 150 - 450 10e3/uL % Neutrophils 66.5 % % Lymphocytes 15.3 % % Monocytes 10.3 % % Eosinophils 6.7 % % Basophils 0.8 % % Immature Granulocytes 0.4 % NRBCs per 100 WBC 0.0 <1.0 /100 Absolute Neutrophils 4.77 1.60 - 8.30 10e3/uL Absolute Lymphocytes 1.10 0.80 - 5.30 10e3/uL Absolute Monocytes 0.74 0.00 - 1.30 10e3/uL Absolute Eosinophils 0.48 0.00 - 0.70 10e3/uL Absolute Basophils 0.06 0.00 - 0.20 10e3/uL Absolute Immature Granulocytes 0.03 <=0.40 10e3/uL Absolute NRBCs <0.03 10e3/uL Glucose by meter Status: Abnormal Result Value Ref Range GLUCOSE BY METER POCT 161 (H) 70 - 99 mg/dL Magnesium (Limited Occurrences) Status: Normal Result Value Ref Range Magnesium 1.9 1.7 - 2.3 mg/dL EKG 12-lead, tracing only Status: None (Preliminary result) Result Value Ref Range Systolic Blood Pressure mmHg Diastolic Blood Pressure mmHg Ventricular Rate 88 BPM Atrial Rate 88 BPM MT Interval 156 ms QRS Duration 106 ms QT 418 ms QTc 505 ms P [place] 56 degrees R AXIS 149 degrees [place] 47 degrees Interpretation ECG Sinus rhythm Right axis deviation Prolonged QT Abnormal ECG When compared with ECG of 16-May-2023 17:04, No significant change was found CBC with Platelets and Differential (Limited Occurrences) Status: Abnormal Narrative The following orders were created for panel order CBC with Platelets and Differential (Limited Occurrences). Procedure Abnormality Status --------- ------ CBC with platelets and ...[[id number]] Abnormal Final result Please view results for these tests on the individual orders. [1] Allergies Allergen Reactions Eicosapentaenoic Acid (Epa) (Fish) Anaphylaxis Fish Protein-Containing Drug Products Anaphylaxis Has had IV contrast 12/2015 without issue Penicillins Hives Has tolerated ampicillin/sulbactam Ibuprofen Hives OR ENERGY CONSULTANT OR ENERGY CONSULTANT OR ENERGY CONSULTANT documented in this encounter Consult Notes * Isaura Cisneros - 10/14/2025 8:38 AM CSTAssociated Order(s): CARE MANAGEMENT / SOCIAL WORK IP CONSULT Care Management Initial Consult General Information Assessment completed with: Patient, Type of CM/SW Visit: Initial Assessment Primary Care Provider verified and updated as needed: Readmission within the last 30 days: Reason for Consult: other (see comments) (elevated risk score) Advance Care Planning: Communication Assessment Patient's communication style: spoken language (V[place]an or Bilingual) Cognitive Cognitive/Neuro/Behavioral: WDL Level of Consciousness: alert Arousal Level: opens eyes spontaneously Orientation: oriented x 4 Mood/Behavior: calm, cooperative Best Language: 0 - No aphasia Speech: clear Living Environment: People in home: alone Current living Arrangements: house Able to return to prior arrangements: yes Family/Social Support: Care provided by: self Provides care for: no one Support system: None Description of Support System: Supportive, Involved Current Resources: Patient receiving home care services: No Community Resources: None Equipment currently used at home: none Supplies currently used at home: Employment/Financial: Employment Status: employed part-time Financial Concerns: Does the patient's insurance plan have a 3 day qualifying hospital stay waiver? Yes Which insurance plan 3 day waiver is available? [facility] Will the waiver be used for post-acute placement? No Lifestyle & Psychosocial Needs: Social Drivers of Health Food Insecurity: High Risk (10/13/2025) Food Insecurity Within the past 12 months, did you worry that your food would run out before you got money to buy more?: Yes Within the past 12 months, did the food you bought just not last and you didn???t have money to getmore?: No Depression: Not at risk (09/07/2025) PHQ-2 PHQ-2 Score: 2 Housing Stability: High Risk (10/13/2025) Housing Stability Do you have housing? : Yes Are you worried about losing your housing?: Yes Tobacco Use: High Risk (09/07/2025) Patient History Smoking Tobacco Use: Former Smokeless Tobacco Use: Current Passive Exposure: Not on file Financial Resource Strain: High Risk (10/13/2025) Financial Resource Strain Within the past 12 months, have you or your family members you live with been unable to get utilities (heat, electricity) when it was really needed?: Yes Alcohol Use: Not At Risk (10/13/2025) AUDIT-C Frequency of Alcohol Consumption: Never Average Number of Drinks: Not on file Frequency of Binge Drinking: Not on file Transportation Needs: High Risk (10/13/2025) Transportation Needs Within the past 12 months, has lack of transportation kept you from medical appointments, getting your medicines, non-medical meetings or appointments, work, or from getting things that you need?: Yes Physical Activity: Not on file Interpersonal Safety: Low Risk (10/13/2025) Interpersonal Safety Do you feel physically and emotionally safe where you currently live?: Yes Within the past 12 months, have you been hit, slapped, kicked or otherwise physically hurt by someone?: No Within the past 12 months, have you been humiliated or emotionally abused in other ways by your partner or ex-partner?: No Stress: Not on file Social Connections: Not on file Health Literacy: Not on file Functional Status: Prior to admission patient needed assistance: Dependent ADLs:: Independent Dependent IADLs:: Independent Mental Health Status: Mental Health Status: No Current Concerns Chemical Dependency Status: Chemical Dependency Status: No Current Concerns Values/Beliefs: Spiritual, Cultural Beliefs, Pentec[employer]al Practices, Values that affect care: Discussed ???Partnership in Safe Discharge Planning??? document with patient/family: No Additional Information: Consult received for elevated risk score. SW met with pt who reports he lives alone in a house. 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 Pt is independent with ADL's and IADL's. He does not use any assistive devices. He does not received any services. He denies any support. Pt denies any needs/concerns. Next Steps: SW will clear consult. Please re consult if other needs arise. Isaura Cisneros SAP ANALYST, INTERNET SPECIALIST, [facility] Inpatient Care Coordination [facility] [phone] OR ENERGY CONSULTANT * Suhas Jean MD - 10/13/2025 8:38 AM CSTAssociated Order(s): GASTROENTEROLOGY IP CONSULT Images from the original note were not included. Gastroenterology Consultation Patient: Richard Fonseca 1965 Date of Consult: 10/13/2025 Admission Date/Time: 10/12/2025 11:38 PM Primary Care Provider: No Ref-Primary, Physician I was asked to see this patient in consultation by Dr. Sams for evaluation of jaundice. HPI: Richard Fonseca is a 60 year old male with PMH HTN, EtOH use disorder (now sober x8 years), EtOHcirrhosis, admitted with jaundice. Patient reports that he was previously on transplant list at [facility] for EtOH cirrhosis about 8 years ago. He ended up doing fine after that and has not been following with them. In the past couple of weeks he has been noticing worsening jaundice and pruritus. 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 Also noticing worsened mild/moderate edema. He does take some supplements - per chart, milk thistle, dandelion weed, zinc. He told me he couldn't name others. He also had a stretch of using cold medications - says for a few days he did 1000mg tylenol and 1 dose of nyquil daily for about 3 days. No other new meds. Workup Reviewed: - Ascitic fluid: low protein, high SAAG, no SBP - HCV Ab negative 2022 - CT A/P: IMPRESSION: 1. Cirrhosis with marked splenomegaly and scattered ascites in the abdomen and pelvis. 2. Gallstones. 3. Nonobstructing renal stones. Recent Labs Lab Test 10/13/25 0543 10/13/25 0006 10/09/25 1315 08/26/23 1025 WBC 6.25 7.18 5.97 2.9* HGB 8.3* 8.0* 8.4* 10.5* MCV 76.5* 77.1* 78.5 75* PLT 110* 115* 118* 108* INR -- 1.84* 1.82* 1.32* Recent Labs Lab Test 10/13/25 0543 10/13/25 0006 10/09/25 1315 POTASSIUM 2.8* 3.0* 3.0* CHLORIDE 96* 96* 98 CO2 26 BUN 21.7* 23.5* 21.0* ANIONGAP 13 14 12 Recent Labs Lab Test 10/13/25 0543 10/13/25 0006 10/09/25 1603 10/09/25 1315 05/17/23 0618 05/16/23 1824 05/16/23 1735 ALBUMIN 2.6* 2.5* -- 2.7* < > -- 3.2* BILITOTAL 15.7* 16.0* -- 21.0* < > -- 5.7* ALT 65 65 -- 57 < > -- 43 AST 144* 139* -- 121* < > -- 112* PROTEIN -- -- Negative -- -- Negative -- LIPASE -- 107* -- 99* -- -- 61* < > = values in this interval not displayed. PAST MEDICAL HISTORY: Past Medical History: Diagnosis Date C. difficile colitis 01/17/2017 Cirrhosis of liver (H) alcohol related Hypertension Seizures (H) PAST SURGICAL HISTORY: Past Surgical History: Procedure Laterality Date ESOPHAGOSCOPY, GASTROSCOPY, DUODENOSCOPY (EGD), COMBINED N/A 05/17/2023 Procedure: ESOPHAGOGASTRODUODENOSCOPY; Surgeon: Umer Magaña MD; Location: OR MEDICATIONS: : Prior to Admission Medications Prescriptions Last Dose Informant Patient Reported? Taking? furosemide (LASIX) 20 MG tablet No No Sig: TAKE 1 TABLET BY MOUTH ONCE DAILY . APPOINTMENT REQUIRED FOR FUTURE REFILLS losartan (COZAAR) 25 MG tablet No No Sig: Take 1 tablet (25 mg) by mouth daily. xznfutiy-sewsxccxh-[id number] (MAXITROL) 0.1 % ophthalmic suspension No No Sig: Please instill 1-2 drops into both eyes 4 times daily for 7 days Patient not taking: Reported on 09/07/2025 tamsulosin (FLOMAX) 0.4 MG capsule No No Sig: Take 1 capsule (0.4 mg) by mouth daily. Facility-Administered Medications: None ALLERGIES: : Allergies[1] SOCIAL HISTORY: Social History Tobacco Use Smoking status: Former Current packs/day: 0.00 Types: Cigarettes Quit date: 05/06/1997 Years since quittin.4 Smokeless tobacco: Current Types: Chew Vaping Use Vaping status: Never Used Substance Use Topics Alcohol use: No Comment: Quit January 01, 2017 Drug use: No FAMILY HISTORY: No first degree relative with colon cancer, gastric cancer, crohn's disease, ulcerative colitis, orliver disease. EXAM: General Appearance: Alert, oriented x3, no acute distress. BP 113/70 Pulse 86 Temp 98.6 ??F (37 ??C) (Oral) Resp 20 Ht 1.778 m (5' 10) Wt 113.3 kg (249 lb 12.5 oz) SpO2 96% BMI 35.84 kg/m?? Eye: sclera anicteric. ENT: oropharynx clear GI: Soft, NABS, NT/ND. Musculoskeletal: no joint swelling, erythema, or warmth. Neuro: no asterixis. ASSESSMENT: Richard Fonseca is a 60 year old male with PMH HTN, EtOH use disorder (now sober x8 years), EtOH cirrhosis, admitted with jaundice. Decompensated cirrhosis with ascites, edema Cholestasis Unclear the cause for the acute worsening and decompensation. No mass appreciated on CT. He reportedly has not been drinking. Considered DILI due to medication - the dose of tylenol doesn't seem to have been unsafe. Consider DILI due to herbal supplements. MELD 3.0: 28 at 10/13/2025 5:43 AM MELD-Na: 27 at 10/13/2025 5:43 AM Calculated from: Serum Creatinine: 1.21 mg/dL at 10/13/2025 5:43 AM Serum Sodium: 132 mmol/L at 10/13/2025 5:43 AM Total Bilirubin: 15.7 mg/dL at 10/13/2025 5:43 AM Serum Albumin: 2.6 g/dL at 10/13/2025 5:43 AM INR(ratio): 1.84 at 10/13/2025 12:06 AM Age at listing (hypothetical): 60 years Sex: Male at 10/13/2025 5:43 AM RECOMMENDATIONS: - Added on a variety of liver labs for tomorrow - Added on PETH - Can add spironolactone 50mg to his lasix - which may help with electrolyte balance and fluid overload - For pruritus - can try cholestyramine 4-16g/day (will start at 4g BID in the hospital, can go up or down pending progress). May be constipating and need to add laxatives. - Patient should re-establish with his [facility]/transplant team - most likely when discharged if thingsare going the right way 45 minutes of total time was spent providing patient care, including patient evaluation, reviewing documentation/test results, and video recorder mechanic. Suhas Jean MD Thank you for the opportunity to participate in the care of this patient. Please feel free to call with any questions or concerns. . CC: [facility], No Ref-Primary, Physician [1] Allergies Allergen Reactions Eicosapentaenoic Acid (Epa) (Fish) Anaphylaxis Fish Protein-Containing Drug Products Anaphylaxis Has had IV contrast 12/2015 without issue Penicillins Hives Has tolerated ampicillin/sulbactam Ibuprofen Hives OR ENERGY CONSULTANT OR ENERGY CONSULTANT OR ENERGY CONSULTANT documented in this encounter ED Notes * Rosanna Hill RN - 10/13/2025 3:27 AM CST [facility] ED Nurse Handoff Report ED Chief complaint: Jaundice . ED Diagnosis: Final diagnoses: Alcoholic cirrhosis of liver with ascites (H) Jaundice Hypokalemia Anemia, unspecified type Allergies: Allergies[1] Code Status: Full Code Activity level - Baseline/Home: independent. Activity Level - Current: in bed and independent. Lift room needed: No. Bariatric: No Specimen Boss Needed: No Isolation: No. Infection: Not Applicable. Respiratory status: Room air Vital Signs (within 30 minutes): Vitals: 10/12/25 2314 10/13/25 0003 10/13/25 0018 BP: (!) 141/74 127/69 Pulse: 92 Resp: 20 Temp: 98.6 ??F (37 ??C) TempSrc: Oral SpO2: 98% 96% Weight: 113.3 kg (249 lb 12.5 oz) Height: 1.778 m (5' 10) Cardiac Rhythm: , Pain level: Patient confused: No. Patient Falls Risk: arm band in place and patient and family education. Elimination Status: Has voided Patient Report - Initial Complaint: Jaundice. Focused Assessment: aundice ABE Fonseca is a 60 year old male with a known history of hypertension and cirrhosis presenting with concerns for jaundice. Patient was evaluated on 10/09/2025 in the ED and underwent paracentesis.It was encouraged at that point in time that he be admitted to the hospital though he states that he was unable to do so though was told to come back to be admitted. He is here for admission at this time. Patient reports for the past month having developed increasing scleral icterus. He denies any fever, chills, headache, chest pain, dyspnea, abdominal pain, vomiting, diarrhea, black/bloody stool. He denies alcohol use. Patient reports taking Lasix. Abnormal Results: Labs Ordered and Resulted from Time of ED Arrival to Time of ED Departure COMPREHENSIVE METABOLIC PANEL (LIMITED OCCURRENCES) - Abnormal Result Value Sodium 133 (*) Potassium 3.0 (*) Carbon Dioxide (CO2) 23 Anion Gap 14 Urea Nitrogen 23.5 (*) Creatinine 1.19 (*) GFR Estimate 71 Calcium 7.9 (*) Chloride 96 (*) Glucose 165 (*) Alkaline Phosphatase 276 (*) AST 139 (*) ALT 65 Protein Total 6.1 (*) Albumin 2.5 (*) Bilirubin Total 16.0 (*) LIPASE - Abnormal Lipase 107 (*) INR - Abnormal INR 1.84 (*) PT 20.9 (*) BILIRUBIN DIRECT - Abnormal Bilirubin Direct 11.99 (*) CBC WITH PLATELETS AND DIFFERENTIAL - Abnormal WBC Count 7.18 RBC Count 3.45 (*) Hemoglobin 8.0 (*) Hematocrit 26.6 (*) MCV 77.1 (*) MCH 23.2 (*) MCHC 30.1 (*) RDW 23.1 (*) Platelet Count 115 (*) % Neutrophils 66.5 % Lymphocytes 15.3 % Monocytes 10.3 % Eosinophils 6.7 % Basophils 0.8 % Immature Granulocytes 0.4 NRBCs per 100 WBC 0.0 Absolute Neutrophils 4.77 Absolute Lymphocytes 1.10 Absolute Monocytes 0.74 Absolute Eosinophils 0.48 Absolute Basophils 0.06 Absolute Immature Granulocytes 0.03 Absolute NRBCs <0.03 GLUCOSE BY METER - Abnormal GLUCOSE BY METER POCT 161 (*) ETHANOL LEVEL BLOOD - Normal Ethanol Level Blood <0.01 MAGNESIUM (LIMITED OCCURRENCES) - Normal Magnesium 1.9 GLUCOSE MONITOR NURSING POCT FERRITIN Abd/pelvis CT, IV contrast only TRAUMA / AAA Final Result IMPRESSION: 1. Cirrhosis with marked splenomegaly and scattered ascites in the abdomen and pelvis. 2. Gallstones. 3. Nonobstructing renal stones. Treatments provided: See MAR Family Comments: None OBS brochure/video discussed/provided to patient: Yes ED Medications: Medications furosemide (LASIX) injection 20 mg (has no administration in time range) lidocaine 1 % 0.1-1 mL (has no administration in time range) lidocaine (LMX4) cream (has no administration in time range) sodium chloride (PF) 0.9% PF flush 3 mL (has no administration in time range) sodium chloride (PF) 0.9% PF flush 3 mL (has no administration in time range) ondansetron (ZOFRAN ODT) ODT tab 4 mg (has no administration in time range) Or ondansetron (ZOFRAN) injection 4 mg (has no administration in time range) calcium carbonate (TUMS) chewable tablet 1,000 mg (has no administration in time range) benzocaine-menthol (CHLORASEPTIC) 6-10 MG lozenge 1 lozenge (has no administration in time range) artificial saliva (BIOTENE MT) solution 1 spray (has no administration in time range) miconazole (MICATIN) 2 % cream (has no administration in time range) miconazole (MICATIN) 2 % powder (has no administration in time range) menthol-zinc oxide (CALMOSEPTINE) 0.44-20.6 % ointment OINT (has no administration in time range) potassium chloride javi ER (KLOR-CON M20) CR tablet 40 mEq (40 mEq Oral $Given 10/13/25 0147) iohexol (OMNIPAQUE) 350 MG/ML injectable solution 100 mL (100 mLs Intravenous $Given 10/13/25 0133) sodium chloride 0.9 % bag for CT scan flush (65 mLs Intravenous $Given 10/13/25 0134) Drips infusing: No For the majority of the shift this patient was Green. Interventions performed were None. Sepsis treatment initiated: No Cares/treatment/interventions/medications to be completed following ED care: Patient care monitoring ED Nurse Name: Rosanna Hill RN 3:27 AM [1] Allergies Allergen Reactions Eicosapentaenoic Acid (Epa) (Fish) Anaphylaxis Fish Protein-Containing Drug Products Anaphylaxis Has had IV contrast 12/2015 without issue Penicillins Hives Has tolerated ampicillin/sulbactam Ibuprofen Hives OR ENERGY CONSULTANT * Katie Messer, DO - 10/13/2025 2:03 AM CST Emergency Department Note History of Present Illness Chief Complaint Jaundice HPI Richard Fonseca is a 60 year old male with a known history of hypertension and cirrhosis presenting with concerns for jaundice. Patient was evaluated on 10/09/2025 in the ED and underwent paracentesis.It was encouraged at that point in time that he be admitted to the hospital though he states that he was unable to do so though was told to come back to be admitted. He is here for admission at this time. Patient reports for the past month having developed increasing scleral icterus. He also notes worsening pruritus, he has not taken anything for symptom management. He denies any fever, chills, headache, chest pain, dyspnea, abdominal pain, vomiting, diarrhea, black/bloody stool. He denies current alcohol use. Patient reports taking Lasix. Independent Historian None Review of External Notes I reviewed ED note 10/09/2025 where 1 to 2 L peritoneal fluid was reportedly removed by IR Past Medical History Medical History and Problem List Past Medical History: Diagnosis Date C. difficile colitis 01/17/2017 Hypertension Seizures (H) Medications furosemide (LASIX) 20 MG tablet losartan (COZAAR) 25 MG tablet azkxvjuu-acjpyygit-utdOEFHSpnhpf (MAXITROL) 0.1 % ophthalmic suspension tamsulosin (FLOMAX) 0.4 MG capsule Surgical History Past Surgical History: Procedure Laterality Date ESOPHAGOSCOPY, GASTROSCOPY, DUODENOSCOPY (EGD), COMBINED N/A 05/17/2023 Procedure: ESOPHAGOGASTRODUODENOSCOPY; Surgeon: Umer Magaña MD; Location: OR Physical Exam Patient Vitals for the past 24 hrs: BP Temp Temp src Pulse Resp SpO2 Height Weight 10/13/25 0018 -- -- -- -- -- 96 % -- -- 10/13/25 0003 127/69 -- -- -- -- -- -- -- 10/12/25 2314 (!) 141/74 98.6 ??F (37 ??C) Oral 92 20 98 % 1.778 m (5' 10) 113.3 kg (249 lb 12.5 oz) Physical Exam Nursing note and vitals reviewed. Constitutional: Well nourished. Eyes: Scleral icterus. Pupils are equal, round, and reactive to light. ENT: Nose normal. Mucous membranes pink and moist. Neck: Normal range of motion. CVS: Normal rate, regular rhythm. Normal heart sounds. Pulmonary: Lungs clear to auscultation bilaterally. No wheezes/rales/rhonchi. GI: Abdomen distended; no tenderness MSK: No calf tenderness; +2 LE edema Neuro: Alert. Follows simple commands. Skin: Skin is warm and dry. No rash noted. Psychiatric: Normal affect. Diagnostics Lab Results Labs Ordered and Resulted from Time of ED Arrival to Time of ED Departure COMPREHENSIVE METABOLIC PANEL (LIMITED OCCURRENCES) - Abnormal Result Value Sodium 133 (*) Potassium 3.0 (*) Carbon Dioxide (CO2) 23 Anion Gap 14 Urea Nitrogen 23.5 (*) Creatinine 1.19 (*) GFR Estimate 71 Calcium 7.9 (*) Chloride 96 (*) Glucose 165 (*) Alkaline Phosphatase 276 (*) AST 139 (*) ALT 65 Protein Total 6.1 (*) Albumin 2.5 (*) Bilirubin Total 16.0 (*) LIPASE - Abnormal Lipase 107 (*) INR - Abnormal INR 1.84 (*) PT 20.9 (*) BILIRUBIN DIRECT - Abnormal Bilirubin Direct 11.99 (*) CBC WITH PLATELETS AND DIFFERENTIAL - Abnormal WBC Count 7.18 RBC Count 3.45 (*) Hemoglobin 8.0 (*) Hematocrit 26.6 (*) MCV 77.1 (*) MCH 23.2 (*) MCHC 30.1 (*) RDW 23.1 (*) Platelet Count 115 (*) % Neutrophils 66.5 % Lymphocytes 15.3 % Monocytes 10.3 % Eosinophils 6.7 % Basophils 0.8 % Immature Granulocytes 0.4 NRBCs per 100 WBC 0.0 Absolute Neutrophils 4.77 Absolute Lymphocytes 1.10 Absolute Monocytes 0.74 Absolute Eosinophils 0.48 Absolute Basophils 0.06 Absolute Immature Granulocytes 0.03 Absolute NRBCs <0.03 GLUCOSE BY METER - Abnormal GLUCOSE BY METER POCT 161 (*) ETHANOL LEVEL BLOOD - Normal Ethanol Level Blood <0.01 MAGNESIUM (LIMITED OCCURRENCES) - Normal Magnesium 1.9 GLUCOSE MONITOR NURSING POCT FERRITIN Imaging Abd/pelvis CT, IV contrast only TRAUMA / AAA Final Result IMPRESSION: 1. Cirrhosis with marked splenomegaly and scattered ascites in the abdomen and pelvis. 2. Gallstones. 3. Nonobstructing renal stones. EKG ECG results from 10/12/25 EKG 12-lead, tracing only Value Systolic Blood Pressure Diastolic Blood Pressure Ventricular Rate 88 Atrial Rate 88 MT Interval 156 QRS Duration 106 QT 418 QTc 505 P [place] 56 R AXIS 149 T [place] 47 Interpretation ECG Sinus rhythm Right axis deviation Prolonged QT Abnormal ECG When compared with ECG of 16-May-2023 17:04, No significant change was found Independent Interpretation None ED Course Medications Administered Medications furosemide (LASIX) injection 20 mg (20 mg Intravenous $Given 10/13/25 033) lidocaine 1 % 0.1-1 mL (has no administration in time range) lidocaine (LMX4) cream (has no administration in time range) sodium chloride (PF) 0.9% PF flush 3 mL (3 mLs Intracatheter $Given 10/13/25330) sodium chloride (PF) 0.9% PF flush 3 mL (has no administration in time range) ondansetron (ZOFRAN ODT) ODT tab 4 mg (has no administration in time range) Or ondansetron (ZOFRAN) injection 4 mg (has no administration in time range) calcium carbonate (TUMS) chewable tablet 1,000 mg (has no administration in time range) benzocaine-menthol (CHLORASEPTIC) 6-10 MG lozenge 1 lozenge (has no administration in time range) artificial saliva (BIOTENE MT) solution 1 spray (has no administration in time range) miconazole (MICATIN) 2 % cream (has no administration in time range) miconazole (MICATIN) 2 % powder (has no administration in time range) menthol-zinc oxide (CALMOSEPTINE) 0.44-20.6 % ointment OINT (has no administration in time range) potassium chloride javi ER (KLOR-CON M20) CR tablet 40 mEq (40 mEq Oral $Given 10/13/25 0147) iohexol (OMNIPAQUE) 350 MG/ML injectable solution 100 mL (100 mLs Intravenous $Given 10/13/25 0133) sodium chloride 0.9 % bag for CT scan flush (65 mLs Intravenous $Given 10/13/25 0134) Procedures Procedures Discussion of Management None ED Course ED Course as of 10/13/25 0359 Sat Oct 13, 2025 0208 I spoke to hospitalist Dr. Sams Additional Documentation None Medical Decision Making / Diagnosis [facility] Diagnoses: None MIPS None MDM Richard Fonseca is a 60 year old male with a known history of cirrhosis and recent ED visit where he underwent paracentesis presenting with concerns for pruritus and jaundice. He is nontoxic, in no significant distress on arrival. Labs with noted hypokalemia, replacement given. Transaminitis consistent with underlying cirrhosis. He does have elevated total and direct bilirubin. Slightly downtrending anemia from prior labs though I doubt acute GI bleed at this time. He underwent CT abdomen which noted cirrhosis with marked splenomegaly and scattered ascites. Gallstones noted as well though no cholecystitis. He has no significant abdominal tenderness on exam. I doubt catastrophic findings includ ing but not limited to SBP/choledocholithiasis. I do feel however he would benefit at this point intime from observation and GI consultation as he has not been following with GI for over a year he reports. Disposition The patient was admitted to the hospital. Diagnosis ICD-10-CM 1. Alcoholic cirrhosis of liver with ascites (H) K70.31 2. Jaundice R17 3. Hypokalemia E87.6 4. Anemia, unspecified type D64.9 Discharge Medications New Prescriptions No medications on file DO Ayde Bang Lindsey E, DO 10/13/25 0400 OR ENERGY CONSULTANT * Sena Walker, RN - 10/12/2025 11:17 PM CST Pt arrives to be admitted. He states he was here 2 days ago and was unable to stay. Had some abdominal pain and fluid removed. Pt is jaundice. Complains of itching. OR ENERGY CONSULTANT documented in this encounter Miscellaneous Notes * Plan of Care - Marvin Al RN - 10/14/2025 5:26 AM CST Goal Outcome Evaluation: For vital signs and complete assessments, please see documentation flowsheets. [id number] Pertinent assessments: Pt A&Ox4. Ind in room. On RA. Afebrile. VSS. Denies nausea & SOB. PIV saline locked. Major Shift Events: Potassium replaced po during shift. Treatment Plan: Symptom management. Monitor electrolytes & renal function. PO Lasix. Discharge TBD. Bedside Nurse: Marvin Al RN Problem: Adult Inpatient Plan of Care Goal: Plan of Care Review Description: The Plan of Care Review/Shift note should be completed every shift. The Outcome Evaluation is a brief statement about your assessment that the patient is improving, declining, or no change. This information will be displayed automatically on your shift note. Outcome: Progressing Flowsheets (Taken 10/14/2025 6104) Outcome Evaluation: Potassium replaced during shift. Plan of Care Reviewed With: patient Progress: no change Goal: Patient-Specific Goal (Individualized) Description: You can add care plan individualizations to a care plan. Examples of Individualizationmight be: Parent requests to be called daily at 9am for status, I have a hard time hearing out of my right ear, or Do not touch me to wake me up as it startles me. Outcome: Progressing Goal: Absence of Hospital-Acquired Illness or Injury Outcome: Progressing Intervention: Identify and Manage Fall Risk Recent Flowsheet Documentation Taken 10/13/20257 by Marvin Al RN Safety Promotion/Fall Prevention: clutter-free environment maintained safety round/check completed room organization consistent nonskid shoes/slippers when out of bed Intervention: Prevent Skin Injury Recent Flowsheet Documentation Taken 10/13/20252357 by Marvin Al RN Body Position: position changed independently Intervention: Prevent Infection Recent Flowsheet Documentation Taken 10/13/20252357 by Marvin Al RN Infection Prevention: cohorting utilized hand hygiene promoted rest/sleep promoted single patient room provided Goal: Optimal Comfort and Wellbeing Outcome: Progressing Goal: Readiness for Transition of Care Outcome: Progressing Problem: Skin Injury Risk Increased Goal: Skin Health and Integrity Outcome: Progressing Intervention: Optimize Skin Protection Recent Flowsheet Documentation Taken 10/13/20252357 by Marvin Al RN Head of Bed (HOB) Positioning: HOB at 20-30 degrees Plan of Care Reviewed With: patient Progress: no changeProgress: no change Outcome Evaluation: Potassium replaced during shift. OR ENERGY CONSULTANT * Plan of Care - Cole Weiss RN - 10/13/2025 10:22 PM CST End of Shift Summary For vital signs and complete assessments, please see documentation flowsheets. Pertinent assessments: A&Ox4. VSS on RA. Denies SOB and nausea. Reports widespread body cramps that he believes are being caused by the Spironolactone. MD aware. Itching managed with PRN Benadryl. Small and hard Bmx1. PRN MirLAX given per pt request. 2gm Na diet. PIV SL. Abdomen very distended and round. Major Shift Events: K+ 2.8. Replaced, recheck 0109. Treatment Plan: K+ replacement, pain management, itching management Bedside Nurse: Cole Weiss RN Problem: Adult Inpatient Plan of Care Goal: Plan of Care Review Description: The Plan of Care Review/Shift note should be completed every shift. The Outcome Evaluation is a brief statement about your assessment that the patient is improving, declining, or no change. This information will be displayed automatically on your shift note. Outcome: Not Progressing Flowsheets Taken 10/13/2025 2221 Plan of Care Reviewed With: patient Progress: no change Taken 10/13/2025 1618 Plan of Care Reviewed With: patient Goal: Patient-Specific Goal (Individualized) Description: You can add care plan individualizations to a care plan. Examples of Individualizationmight be: Parent requests to be called daily at 9am for status, I have a hard time hearing out of my right ear, or Do not touch me to wake me up as it startles me. Outcome: Not Progressing Goal: Absence of Hospital-Acquired Illness or Injury Outcome: Not Progressing Intervention: Identify and Manage Fall Risk Recent Flowsheet Documentation Taken 10/13/20251617 by Cole Weiss RN Safety Promotion/Fall Prevention: clutter-free environment maintained safety round/check completed room organization consistent Intervention: Prevent Skin Injury Recent Flowsheet Documentation Taken 10/13/2025 161 by Cole Weiss RN Body Position: position changed independently Intervention: Prevent Infection Recent Flowsheet Documentation Taken 10/13/2025 161 by Cole Weiss RN Infection Prevention: cohorting utilized hand hygiene promoted rest/sleep promoted single patient room provided Goal: Optimal Comfort and Wellbeing Outcome: Not Progressing Goal: Readiness for Transition of Care Outcome: Not Progressing Problem: Skin Injury Risk Increased Goal: Skin Health and Integrity Outcome: Not Progressing Intervention: Optimize Skin Protection Recent Flowsheet Documentation Taken 10/13/20251617 by Cole Weiss RN Head of Bed (HOB) Positioning: HOB at 20-30 degrees Goal Outcome Evaluation: Plan of Care Reviewed With: patient Progress: no changeProgress: no change OR ENERGY CONSULTANT * Plan of Care - Mariela Marcus RN - 10/13/2025 2:56 PM CST To Do: End of Shift Summary For vital signs and complete assessments, please see documentation flowsheets. Pertinent assessments: Pt is A&Ox4. VSS on RA. Denies nausea, pain, dizziness. Reports itching,prn benadryl available. PIV SL. Up standby assist to bathroom, but requested to be ind. & steady on feet. 2 gram sodium diet. Jaundiced skin. K+ protocol, next recheck 1649. Call light within reach and able to make needs known. Major Shift Events: Admitted to unit Treatment Plan: Symptom management, K+ protocol Bedside Nurse: Mariela Marcus RN Goal Outcome Evaluation: Plan of Care Reviewed With: patient Problem: Adult Inpatient Plan of Care Goal: Plan of Care Review Description: The Plan of Care Review/Shift note should be completed every shift. The Outcome Evaluation is a brief statement about your assessment that the patient is improving, declining, or no change. This information will be displayed automatically on your shift note. Outcome: Progressing Flowsheets (Taken 10/13/2025 1300) Plan of Care Reviewed With: patient Goal: Patient-Specific Goal (Individualized) Description: You can add care plan individualizations to a care plan. Examples of Individualizationmight be: Parent requests to be called daily at 9am for status, I have a hard time hearing out of my right ear, or Do not touch me to wake me up as it startles me. Outcome: Progressing Goal: Absence of Hospital-Acquired Illness or Injury Outcome: Progressing Intervention: Identify and Manage Fall Risk Recent Flowsheet Documentation Taken 10/13/2025 1300 by Mariela Marcus RN Safety Promotion/Fall Prevention: activity supervised nonskid shoes/slippers when out of bed safety round/check completed clutter-free environment maintained assistive device/personal items within reach Intervention: Prevent Skin Injury Recent Flowsheet Documentation Taken 10/13/2025 1300 by Mariela Marcus RN Body Position: position changed independently Intervention: Prevent Infection Recent Flowsheet Documentation Taken 10/13/2025 1300 by Mariela Marcus RN Infection Prevention: cohorting utilized rest/sleep promoted single patient room provided Goal: Optimal Comfort and Wellbeing Outcome: Progressing Goal: Readiness for Transition of Care Outcome: Progressing Problem: Skin Injury Risk Increased Goal: Skin Health and Integrity Outcome: Progressing Intervention: Optimize Skin Protection Recent Flowsheet Documentation Taken 10/13/2025 1300 by Mariela Marcus RN Activity Management: ambulated to bathroom Head of Bed (HOB) Positioning: HOB at 20-30 degrees OR ENERGY CONSULTANT * Pharmacy-Admission Medication History - Jannet Zavala RPH - 10/13/2025 9:10 AM CST Pharmacist Admission Medication History Admission medication history is complete. The information provided in this note is only as accurateas the sources available at the time of the update. Information Source(s): Patient and CareEverywhere/SureScripts via in-person Pertinent Information: -Pt takes Furosemide when able, hard to take at work. -Pt takes Adderall ER 25mg cap & takes daily, only drug helps with his depression & He buysfrom friends? No prescription records found in chart. -Pt confirms that he is still using Maxitrol eye drops, was originally prescribed for 7 days. Changes made to [facility] medication list: Added: None Deleted: Losartan, Flomax Changed: Furosemide to prn Allergies reviewed with patient and updates made in EHR: yes Medication History Completed By: Alice Zavala, Dorita 10/13/2025 9:11 AM [facility] Med List Medication Sig Last Dose/Taking furosemide (LASIX) 20 MG tablet Take 20 mg by mouth as needed. Past Week xyrylbqp-lwdzqmawv-fktRETVFskfuy (MAXITROL) 0.1 % ophthalmic suspension Please instill 1-2 drops into both eyes 4 times daily for 7 days Taking OR ENERGY CONSULTANT * Plan of Care - Mariela Marcus RN - 10/13/2025 7:45 AM CST [facility] ED Boarding Nurse Handoff Addendum Report: Date/time: 10/13/2025, 7:45 AM Activity Level: independent Fall Risk: No Current Meds Due: see MAR Current care needs: diuresis, abdominal ultrasound, potassium replacement Respiratory status: Room air Vital signs (within last 30 minutes): Vitals: 10/12/25 2314 10/13/25 0003 10/13/25 0018 10/13/25 0100 BP: (!) 141/74 127/69 113/70 Pulse: 92 86 Resp: 20 Temp: 98.6 ??F (37 ??C) TempSrc: Oral SpO2: 98% 96% Weight: 113.3 kg (249 lb 12.5 oz) Height: 1.778 m (5' 10) Focused assessment within last 30 minutes: Pt A&Ox4. Denies pain. Endorses ongoing pruritus. VSS. Pt on strict I&O and has had good output since diuresing. Pt refused external catheter but was offered. Pt currently NPO for abd US [id number] and then can eat. ED Boarding Nurse name: Nasreen Cadet RN RECEIVING UNIT ED HANDOFF REVIEW Above ED Nurse Handoff Report was reviewed: Yes Reviewed by: Mariela Marcus, BELLA on October 13, 2025 at 12:38 PM Jay Corral called the ED to inform them the note was read: Yes OR ENERGY CONSULTANT OR ENERGY CONSULTANT OR ENERGY CONSULTANT documented in this encounter Plan of Treatment DateTypeDepartmentCare Team (Latest Contact Info)Hwditgifjte33/06/2026 1:30 PM CSTOffice Visit [facility] [address] [place] [phone] Abi Mcclellan MD [address] [place], [place] [address] 11/22/2025 8:30 AM CSTVirtual Visit [facility] [address] [phone] Jillian Reeves [facility] [address] [place] [address] 11/22/2025 9:00 AM CSTVirtual Visit [facility] [address] [phone] Abi Mcclellan MD [address] [place], [place] [phone] [place] [address] [place] [phone] NameTypePriorityAssociated DiagnosesDate/TimeMitochondrial M2 Antibody IgGLab Dqnblwh8610/13/2025 1:34 PM CSTAlpha 1 XbgsefhxqjuAjiClxxuen54/27/2025 1:34 PM SENIOR ENERGY CONSULTANT NameTypePriorityAssociated DiagnosesOrder ScheduleMitochondrial M2 Antibody IgG LabRoutineRoutine for 1 Occurrences starting 10/13/2025 until 5Alpha 1 AntitrypsinLabRoutineRoutine for 1 Occurrences starting 10/13/2025 until 10/13/2025NameTypePriorityAssociated DiagnosesOrder ScheduleHospital to Primary Care - Establish PCP ReferralReferralPriority: 1-2 Weeks Alcoholic cirrhosis of liver with ascites (H) Expected: 10/14/2025 (Approximate), Expires: 01/12/2026documented as of this encounter Procedures Procedure NamePriorityDate/TimeAssociated DiagnosisCommentsCBC WITH PLATELETS (LIMITED OCCURRENCES)Hzogyhw9010/14/2025 6:41 AM SENIOR ENERGY CONSULTANT COMPREHENSIVE METABOLIC PANEL (LIMITED OCCURRENCES)Timed10/14/2025 6:41 AM SENIOR ENERGY CONSULTANT POTASSIUM (LIMITED OCCURRENCES)Timed10/14/2025 1:01 AM SENIOR ENERGY CONSULTANT POTASSIUM (LIMITED OCCURRENCES)Timed10/13/2025 5:04 PM SENIOR ENERGY CONSULTANT HEPATITIS B SURFACE PYAYIPRBQtiylmy49/27/2025 1:34 PM SENIOR ENERGY CONSULTANT PHOSPHATIDYLETHANOL (PETH), WHOLE PUHARGfkxkwo20/27/2025 1:34 PM SENIOR ENERGY CONSULTANT IRON AND IRON BINDING IEYTNPOQZtrwopk60/27/2025 1:34 PM SENIOR ENERGY CONSULTANT HEPATITIS C EHVISWGZAfwcggb68/27/2025 1:34 PM SENIOR ENERGY CONSULTANT HEPATITIS B SURFACE FIIEFFDGsyirmi61/27/2025 1:34 PM SENIOR ENERGY CONSULTANT HEPATITIS B CORE QPMUJSXICwuisqp91/27/2025 1:34 PM SENIOR ENERGY CONSULTANT HEPATITIS A ANTIBODY CNMJhrkgdc50/27/2025 1:34 PM SENIOR ENERGY CONSULTANT RZPCCMJDOtyxyki31/27/2025 1:34 PM SENIOR ENERGY CONSULTANT F ACTIN EIA WITH NPEXITHhevtih67/27/2025 1:34 PM SENIOR ENERGY CONSULTANT PEDYRGEHNDBXMUhihpmr04/27/2025 1:34 PM SENIOR ENERGY CONSULTANT AFP TUMOR TAZVAAGnxmwua47/27/2025 1:34 PM SENIOR ENERGY CONSULTANT US ABDOMEN COMPLETE WITH DOPPLER UNYIVBPDJaavewk66/27/2025 10:55 AM SENIOR ENERGY CONSULTANT ACUTE HEPATITIS REBHPPQAT93/27/2025 5:43 AM SENIOR ENERGY CONSULTANT CBC WITH PLATELETS (LIMITED OCCURRENCES)STAT112/14/2024 5:43 AM SENIOR ENERGY CONSULTANT COMPREHENSIVE METABOLIC PANEL (LIMITED OCCURRENCES)STAT112/14/2024 5:43 AM SENIOR ENERGY CONSULTANT EKG 12-LEAD, TRACING YIRDGQKM42/27/2025 2:[address] ENERGY CONSULTANT [address] ABDOMEN PELVIS W KQOHSRUASOJV86/27/2025 1:39 AM SENIOR ENERGY CONSULTANT GLUCOSE BY RVCSWKDQN34/27/2025 12:14 AM SENIOR ENERGY CONSULTANT CBC WITH PLATELETS AND ACOUMWCJGVNYKLVK78/27/2025 12:06 AM SENIOR ENERGY CONSULTANT CBC WITH PLATELETS AND DIFFERENTIAL (LIMITED OCCURRENCES)STAT112/14/2024 12:06 AM SENIOR ENERGY CONSULTANT COMPREHENSIVE METABOLIC PANEL (LIMITED OCCURRENCES)STAT112/14/2024 12:06 AM SENIOR ENERGY CONSULTANT MAGNESIUM (LIMITED OCCURRENCES)STAT112/14/2024 12:06 AM SENIOR ENERGY CONSULTANT RTOUUVK7610/13/2025 12:06 AM SENIOR ENERGY CONSULTANT VXPPXCGQHF64/27/2025 12:06 AM SENIOR ENERGY CONSULTANT FERRITINAdd-On10/13/2025 12:06 AM SENIOR ENERGY CONSULTANT BILIRUBIN HTLJVZYBOK28/27/2025 12:06 AM SENIOR ENERGY CONSULTANT ETHANOL LEVEL JXJBYQQBD62/27/2025 12:06 AM SENIOR ENERGY CONSULTANT documented in this encounter Results * (ABNORMAL) Comprehensive Metabolic Panel (Limited Occurrences) (10/14/2025 6:41 AM SENIOR ENERGY CONSULTANT)ComponentValueRef RangeTest MethodAnalysis TimePerformed At Pathologist NdlkvdcqlSsmdsh141(L)135 - 145 mmol/L112/15/2024 7:47 AM [facility]ORYPotassium3.63.4 - 5.3 mmol/L112/15/2024 7:47 AM [facility] Carbon Dioxide (CO2)2622 - 29 mmol/L112/15/2024 7:47 AM [facility]OR[facility]ORYAnion Gnm244 - 15 mmol/L112/15/2024 7:47 AM [facility] LABORATORYUrea Cycirffy37.26.0 - 20.0 mg/dL10/14/2025 7:47 AM [facility] LABORATORYCreatinine1.20(H)0.67 - 1.17 mg/dL10/14/2025 7:47 AM [facility] LABORATORYGFR Sshhrqrg23>60 mL/min/1.73m2 10/14/2025 7:47 AM [facility]ORATORYComment:eGFR calculated using 2020 CKD-EPI equation.Calcium8.0(L)8.8 - 10.4 mg/dL10/14/2025 7:47 AM [facility] Tkihzxeg6151 - 107 mmol/L112/15/2024 7:47 AM [facility] ATDHGZSBKJAdwzvms2887 - 99 mg/dL10/14/2025 7:47 AM [facility] LABORATORYAlkaline Uhwflklrxsm871(H)40 - 150 U/L 10/14/2025 7:47 AM [facility] USCJJSUQMLVXP576(H)0 - 45 U/L112/15/2024 7:47 AM [facility] EIUEHEDLKEHMC498 - 70 U/L112/15/2024 7:47 AM [facility] LABORATORYProtein Total6.3 (L)6.4 - 8.3 g/dL10/14/2025 7:47 AM [facility] LABORATORYAlbumin2.6(L)3.5 - 5.2 g/dL10/14/2025 7:47 AM [facility] LABORATORYBilirubin Total14.8(H)<=1.2 mg/dL 10/14/2025 7:47 AM [facility] LABORATORYSpecimen (Source)Anatomical Location / LateralityCollection Method / VolumeCollection TimeReceived TimeBloodSTRUCTURE OF RIGHT UPPER LIMB / UnknownVenipuncture / Pvjbnmy9710/14/2025 6:41 AM SENIOR ENERGY CONSULTANT 10/14/2025 6:51 AM SENIOR ENERGY CONSULTANT Narrative Authorizing ProviderResult TypeResult StatusCherinet Jade Perdomo MDLAB - BLOOD ORDERABLESFinal ResultPerforming OrganizationAddressCity/State/ZIP CodePhone Number [facility] [address] Lab (1st floor, no room number) [place] [address], [facility] * (ABNORMAL) CBC with Platelets (Limited Occurrences) (10/14/2025 6:41 AM SENIOR ENERGY CONSULTANT) ComponentValueRef RangeTest MethodAnalysis TimePerformed AtPathologist SignatureWBC Count5.464.00 - 11.00 10e3/uL10/14/2025 7:16 AM [facility] RBC Count3.59(L)4.40 - 5.90 10e6/uL10/14/2025 7:16 AM [facility] Hemoglobin8.3(L)13.3 - 17.7 g/dL10/14/2025 7:16 AM [facility] LABORATORYHematocrit 27.7(L)40.0 - 53.0 %10/14/2025 7:16 AM [facility] HDVHVDJWABYIH44.2(L)78.0 - 100.0 fL10/14/2025 7:16 AM [facility] OECRWUJNUYOUS69.1(L)26.5 - 33.0 pg10/14/2025 7:16 AM [facility] QTKXUTEMCGEKAO67.0(L)31.5 - 36.5 g/dL10/14/2025 7:16 AM [facility] QSWZHILKPJRKZ93.0(H)10.0 - 15.0 %10/14/2025 7:16 AM [facility] LABORATORYPlatelet Mwoud472(L)150 - 450 10e3/uL10/14/2025 7:16 AM [facility] LABORATORYSpecimen (Source)Anatomical Location / LateralityCollection Method / VolumeCollection TimeReceived TimeBloodSTRUCTURE OF RIGHT UPPER LIMB / UnknownVenipuncture / Ggdcwhy9010/14/2025 6:41 AM CST10/14/2025 6:51 AM SENIOR ENERGY CONSULTANT Narrative Authorizing ProviderResult TypeResult StatusAnne-Marie Perdomo MDLAB - BLOOD ORDERABLESFinal ResultPerforming OrganizationAddressCity/State/ZIP CodePhone Number [facility] [address] Lab (1st floor, no room number) [place] [address], [facility] * Potassium (Limited Occurrences) (10/14/2025 1:01 AM SENIOR ENERGY CONSULTANT)ComponentValueRef RangeTest MethodAnalysis TimePerformed AtPathologist SignaturePotassium3.43.4 - 5.3 mmol/L112/15/2024 1:23 AM [facility] LABORATORYSpecimen (Source)Anatomical Location / LateralityCollection Method / VolumeCollection TimeReceived Time BloodSTRUCTURE OF RIGHT UPPER LIMB / UnknownVenipuncture / Jakztdd1110/14/2025 1:01 AM CST10/14/2025 1:03 AM SENIOR ENERGY CONSULTANT Narrative Authorizing ProviderResult TypeResult StatusCrystal Sams MDLAB - BLOOD ORDERABLESFinal ResultPerforming OrganizationAddressCity/State/ZIP CodePhone Number [facility] [address] Lab (1st floor, no room number) [place] [address], [facility] * (ABNORMAL) Potassium (Limited Occurrences) (10/13/2025 5:04 PM SENIOR ENERGY CONSULTANT)Component ValueRef RangeTest MethodAnalysis TimePerformed AtPathologist Signature Potassium2.8(L)3.4 - 5.3 mmol/L112/14/2024 5:34 PM [facility] LABORATORYSpecimen (Source)Anatomical Location / LateralityCollection Method / VolumeCollection TimeReceived TimeBloodSTRUCTURE OF RIGHT UPPER LIMB / UnknownVenipuncture / Xmjadul0410/13/2025 5:04 PM CST10/13/2025 5:14 PM SENIOR ENERGY CONSULTANT Narrative Authorizing ProviderResult TypeResult StatusAnne-Marie Perdomo MDLAB - BLOOD ORDERABLESFinal ResultPerforming OrganizationAddressCity/State/ZIP CodePhone Number LABORATORY [facility] Lab [address] Lab (1st floor, no room number) [place] [address] * AFP tumor marker (10/13/2025 1:34 PM SENIOR ENERGY CONSULTANT)ComponentValueRef RangeTest Method Analysis TimePerformed AtPathologist SignatureAFP tumor marker2.9<=8.3 ng/mL 10/13/2025 4:24 PM CSTUU LABORATORYSpecimen (Source)Anatomical Location / LateralityCollection Method / VolumeCollection TimeReceived TimeBloodSTRUCTURE OF RIGHT UPPER LIMB / UnknownVenipuncture / Rtqgdwj9310/13/2025 1:34 PM SENIOR ENERGY CONSULTANT 10/13/2025 1:39 PM SENIOR ENERGY CONSULTANT Narrative LABORATORY - 10/13/2025 4:24 PM SENIOR ENERGY CONSULTANT This result is obtained using the Luis A Elecsys AFP method on the kareen e801 immunoassay analyzer. Results obtained with different assay methods or kits cannot be used interchangeably. Reference ranges apply to non- females only. Authorizing ProviderResult TypeResult StatusGregory Ted LAB - BLOOD ORDERABLESFinal ResultPerforming OrganizationAddressCity/State/ZIP CodePhone Number LABORATORY [facility] [place] [facility] [address], [address] [place] [address] * Phosphatidylethanol (PEth), Whole Blood (10/13/2025 1:34 PM SENIOR ENERGY CONSULTANT)ComponentValue Ref RangeTest MethodAnalysis TimePerformed AtPathologist SignaturePEth 16:0/18:1 (POPEth)293ng/mL10/15/2025 5:28 PM CSTARUP LABSComment: PEth 16:0/18:1 (POPEth) Less than 10 ng/mL............Not detected Less than 20 ng/mL............Abstinence or light alcohol consumption 20 - 200 ng/mL................Moderate alcohol consumption Greater than 200 ng/mL........Heavy alcohol consumption or chronic alcohol use (Reference: Mohan Vaughn and Darleen Kelly 2018 J. Forensic Sci) PEth 16:0/18:2 (PLPEth)202ng/mL10/15/2025 5:28 PM [facility]STUN[facility] LABSComment:Reference ranges are not well established.EER Phosphatidylethanol (PETH)See Note10/15/2025 5:28 PM CSTUNM [facility] LABSComment: Authorized individuals can access the [facility] Enhanced Report with an [employer] Connect account using the following link. Your local lab can assist you in obtaining the patient report if you don't have a Connect account. [email or web address] PEth InterpretationSee Qlnvotd5010/15/2025 5:28 PM CSTUNM CANC[facility] LABSComment: Phosphatidylethanol (PEth) is a group of phospholipids formed in the presence of ethanol, phospholipase D and phosphatidylcholine. PEth is known to be a direct alcohol biomarker. The predominant PEth homologues are PEth 16:0/18:1 (POPEth) and PEth 16:0/18:2 (PLPEth), which account for 37-46% and 26-28% of the total PEth homologues, respectively. PEth is incorporated into the phospholipid membrane of red blood cells and has a general half-life of 4-10 days and a window of detection of 2-4 weeks. However, the window of detection is longer in individuals who chronically or excessively consume alcohol. The limit of quantification is 10 ng/mL. Serial monitoring of PEth may be helpful in monitoring alcohol abstinence over time. PEth results should be interpreted in the context of the patient's clinical and behavioral history. Patients with advanced liver disease may have falsely elevated PEth concentrations (Leigh Ann HESS et al 2018, Alcoholism Clinical & Experimental Research). This test was developed and its performance characteristics determined by [facility]. It has not been cleared or approved by the U.S. Food and Drug Administration. This test was performed in a CLIA-certified laboratory and is intended for clinical purposes. Performed By: [facility] [address] [place] [address] [employer] Model Maker: Georges Ohara MD, PhD CLIA Number: [id number] Specimen (Source)Anatomical Location / LateralityCollection Method / Volume Collection TimeReceived TimeBloodSTRUCTURE OF RIGHT UPPER LIMB / Unknown Venipuncture / Pnoehxn4810/13/2025 1:34 PM CST10/13/2025 1:39 PM SENIOR ENERGY CONSULTANT Narrative Authorizing ProviderResult TypeResult StatusGregory Tedalexandra US - BLOOD ORDERABLESFinal ResultPerforming OrganizationAddressCity/State/ZIP CodePhone Number [facility] [address] [place] [address], [facility] [phone] * (ABNORMAL) F Actin EIA with reflex (10/13/2025 1:34 PM SENIOR ENERGY CONSULTANT)ComponentValueRef RangeTest MethodAnalysis TimePerformed AtPathologist SignatureF-Actin (Smooth Muscle) Ab, IgG by ELISA20(H)0 - 19 Units10/15/2025 12:36 PM [facility] Comment: REFERENCE INTERVAL: F-Actin (Smooth Muscle) Antibody, IgG by ?JAELYN ??19 Units or less ....... Negative ??20 - 30 Units .......... Weak Positive-Suggest repeat ? testing in two to three weeks ? with fresh specimen. ??31 Units or greater..... Positive-Suggestive of ? autoimmune hepatitis type 1 ? or chronic active hepatitis. F-actin IgG antibodies have been shown to have increased sensitivity for autoimmune hepatitis (AIH) but lower specificity than smooth muscle antibodies (SMA). F-actin IgG antibodies can also be seen in SMA-negative disease controls (non-AIH), especially in patients with primary biliary cirrhosis and chronic hepatitis C infections. Some patients with AIH may be SMA-positive but negative for F-actin IgG. Consider testing for SMA by IFA if suspicion for AIH is strong. Performed By: [facility] [address] [place] [address] [employer]ior[employer] Model Maker: Georges Ohara MD, PhD CLIA Number: [id number] Specimen (Source)Anatomical Location / LateralityCollection Method / Volume Collection TimeReceived TimeBloodSTRUCTURE OF RIGHT UPPER LIMB / Unknown Venipuncture / Wlgcovb6710/13/2025 1:34 PM CST10/13/2025 1:38 PM SENIOR ENERGY CONSULTANT Narrative Authorizing ProviderResult TypeResult StatusGregory Ted US - BLOOD ORDERABLESFinal ResultPerforming OrganizationAddressCity/State/ZIP CodePhone Number [facility] [address] [place] [address], [facility] [phone] * Ferritin (10/13/2025 1:34 PM SENIOR ENERGY CONSULTANT)ComponentValueRef RangeTest MethodAnalysis TimePerformed AtPathologist LtpfjmqigFdcrkhxk0858 - 409 ng/mL10/13/2025 4:24 PM CST LABORATORYSpecimen (Source)Anatomical Location / LateralityCollection Method / VolumeCollection TimeReceived TimeBloodSTRUCTURE OF RIGHT UPPER LIMB / UnknownVenipuncture / Fteussg5810/13/2025 1:34 PM CST10/13/2025 1:39 PM SENIOR ENERGY CONSULTANT Narrative Authorizing ProviderResult TypeResult StatusGregory Ted US - BLOOD ORDERABLESFinal ResultPerforming OrganizationAddressCity/State/ZIP CodePhone Number LABORATORY [facility] [place] [facility] [address] [facility], [address] [address], [facility] * (ABNORMAL) Iron and iron binding capacity (10/13/2025 1:34 PM SENIOR ENERGY CONSULTANT)Component ValueRef RangeTest MethodAnalysis TimePerformed AtPathologist QoybtwrifNxho30 (L)61 - 157 ug/dL10/13/2025 2:01 PM CST LABORATORYIron Binding Hvegment630 (L)240 - 430 ug/dL10/13/2025 2:01 PM CST LABORATORYIron Sat Yyzqb0630 - 46 % 10/13/2025 2:01 PM CST LABORATORYSpecimen (Source)Anatomical Location / LateralityCollection Method / VolumeCollection TimeReceived TimeBloodSTRUCTURE OF RIGHT UPPER LIMB / UnknownVenipuncture / Ceizzlq9310/13/2025 1:34 PM SENIOR ENERGY CONSULTANT 10/13/2025 1:39 PM SENIOR ENERGY CONSULTANT Narrative Authorizing ProviderResult TypeResult StatusSuhas US - BLOOD ORDERABLESFinal ResultPerforming OrganizationAddressCity/State/ZIP CodePhone Number [facility] Lab [address] [facility] [facility] Lab (1st floor, no room number) [place] [address] * Ceruloplasmin (10/13/2025 1:34 PM SENIOR ENERGY CONSULTANT)ComponentValueRef RangeTest Method Analysis TimePerformed AtPathologist UstyhervnHlpgzkhedmdxv4171 - 60 mg/dL 10/15/2025 10:51 AM CST[facility]/PROT/ENDOSpecimen (Source)Anatomical Location / LateralityCollection Method / VolumeCollection TimeReceived Time BloodSTRUCTURE OF RIGHT UPPER LIMB / UnknownVenipuncture / Lmoojkw6610/13/2025 1:34 PM CST10/13/2025 1:38 PM SENIOR ENERGY CONSULTANT Narrative Authorizing ProviderResult TypeResult StatusSuhas Jean MDLAB - BLOOD ORDERABLESFinal ResultPerforming OrganizationAddressCity/State/ZIP CodePhone Number [facility]Prot[facility]Endo [address] [facility], [address] * Hepatitis C antibody (10/13/2025 1:34 PM SENIOR ENERGY CONSULTANT)ComponentValueRef RangeTest MethodAnalysis TimePerformed AtPathologist SignatureHepatitis C Antibody JekykwzdlssGxknxywlbgy12/27/2025 4:38 PM CSTUU LABORATORYComment: A nonreactive screening test result does not exclude the possibility of exposure to or infection with HCV. Nonreactive screening test results in individuals with prior exposure to HCV may be due to antibody levels below the limit of detection of this assay or lack of reactivity to the HCV antigens used in this assay. Patients with recent HCV infections (<3 months from time of exposure) may have false-negative HCV antibody results due to the time needed for seroconversion (average of 8 to 9 weeks). Assay performance characteristics have not been established in populations of immunocompromised or immunosuppressed patients. Specimen (Source)Anatomical Location / LateralityCollection Method / Volume Collection TimeReceived TimeBloodSTRUCTURE OF RIGHT UPPER LIMB / Unknown Venipuncture / Pvpkmyh9210/13/2025 1:34 PM CST10/13/2025 1:39 PM SENIOR ENERGY CONSULTANT Narrative Authorizing ProviderResult TypeResult StatusGregtoledo hospital Ted VELASCOLAB - BLOOD ORDERABLESFinal ResultPerforming OrganizationAddressCity/State/ZIP CodePhone Number LABORATORY [facility] Lab [address] [facility], [address] [phone] * Hepatitis B surface antigen (10/13/2025 1:34 PM SENIOR ENERGY CONSULTANT)ComponentValueRef Range Test MethodAnalysis TimePerformed AtPathologist SignatureHepatitis B Surface RrktizmUvmvvmentyzSbnrpbjxgxx64/27/2025 4:38 PM CSTUU LABORATORYComment: Assay performance characteristics have not been established for testing of newborns. Specimen (Source)Anatomical Location / LateralityCollection Method / Volume Collection TimeReceived TimeBloodSTRUCTURE OF RIGHT UPPER LIMB / Unknown Venipuncture / Bbncrwl5810/13/2025 1:34 PM CST10/13/2025 1:39 PM SENIOR ENERGY CONSULTANT Narrative Authorizing ProviderResult TypeResult StatusGregDetwiler Memorial Hospitaln NYLAB - BLOOD ORDERABLESFinal ResultPerforming OrganizationAddressCity/State/ZIP CodePhone Number LABORATORY [facility] Lab [address] [facility], [address] [phone] * Hepatitis B Surface Antibody (10/13/2025 1:34 PM SENIOR ENERGY CONSULTANT)ComponentValueRef Range Test MethodAnalysis TimePerformed AtPathologist SignatureHepatitis B Surface AztxmihdOcroaxrpvvr07/27/2025 4:38 PM CSTUU LABORATORYComment:Nonreactive results, defined as anti-HBs levels of less than 10.0 mIU/mL, indicate a lack of recovery from acute or chronic hepatitis B or inadequate immune response to HBV vaccination.Hepatitis B Surface Antibody Instrument Value<3.50<10.00 m[IU]/mL10/13/2025 4:38 PM CSTUU LABORATORYComment:The Elecsys Anti-HBs II assay is an immunoassay for the in vitro quantitative determination of total antibodies to the hepatitis B surface antigen (HBsAg) in human adult, women, and pediatric (ages 2 to 21years).Specimen (Source)Anatomical Location / LateralityCollection Method / VolumeCollection TimeReceived TimeBlood STRUCTURE OF RIGHT UPPER LIMB / UnknownVenipuncture / Omuhovx0610/13/2025 1:34 PM CST10/13/2025 1:39 PM SENIOR ENERGY CONSULTANT Narrative LABORATORY - 10/13/2025 4:38 PM SENIOR ENERGY CONSULTANT Methodology for this test was changed on 07/26/25 from the Elecsys Anti-HBs Gen I to Elecsys Anti-HBs Gen II assay. The assay senior licensing manager ([employer]) reformulated this assay to increase its resistance to biotin interference, to include pediatric patients (ages 2-21 years), and to eliminate the g ray zone category for test reporting and interpretation. Authorizing ProviderResult TypeResult StatusGregDetwiler Memorial Hospitaln [facility] BLOOD ORDERABLESFinal ResultPerforming OrganizationAddressCity/State/[facility] CodePhone Number LABORATORY [facility] Lab [address] [facility], [address] [phone] * Hepatitis B core antibody (10/13/2025 1:34 PM SENIOR ENERGY CONSULTANT)ComponentValueRef RangeTest MethodAnalysis TimePerformed AtPathologist SignatureHepatitis B Core Antibody ShkuvRwvwejvvmttYwflmxhnxoj26/27/2025 4:38 PM CSTUU LABORATORYComment: Nonreactive hepatitis B core antibody test results indicate the absence of exposure to hepatitis B virus and no evidence of recent, past/resolved, or chronic hepatitis B. Assay performance characteristics have not been established in patients under 21, women, or in populations of immunocompromised or immunosuppressed patients. Specimen (Source)Anatomical Location / LateralityCollection Method / Volume Collection TimeReceived TimeBloodSTRUCTURE OF RIGHT UPPER LIMB / Unknown Venipuncture / Gdiwond8010/13/2025 1:34 PM CST10/13/2025 1:39 PM SENIOR ENERGY CONSULTANT Narrative Authorizing ProviderResult TypeResult StatusGregDetwiler Memorial Hospitaln [facility] BLOOD ORDERABLESFinal ResultPerforming OrganizationAddressCity/State/ZIP CodePhone Number LABORATORY [facility] Core Lab [address] [facility], [address] [phone] * Hepatitis A antibody IgM (10/13/2025 1:34 PM SENIOR ENERGY CONSULTANT)ComponentValueRef RangeTest MethodAnalysis TimePerformed AtPathologist SignatureHepatitis A Antibody IgM QjmbmizhuvvZfufodstiyl73/27/2025 4:38 PM CSTUU LABORATORYComment: Nonreactive results indicate either inadequate or delayed anti-HAV IgM response after known exposure to HAV or absence of acute or recent hepatitis A. Assay performance characteristics have not been established for immunocompromised or immunosuppressed patients. Specimen (Source)Anatomical Location / LateralityCollection Method / Volume Collection TimeReceived TimeBloodSTRUCTURE OF RIGHT UPPER LIMB / Unknown Venipuncture / Lyaisqw2410/13/2025 1:34 PM CST10/13/2025 1:39 PM SENIOR ENERGY CONSULTANT Narrative Authorizing ProviderResult TypeResult StatusGregory Ted MDLAB - BLOOD ORDERABLESFinal ResultPerforming OrganizationAddressCity/State/ZIP CodePhone Number [facility] LABORATORY [facility] [place] Core Lab [address] [facility], [address] [place] [address], [facility] * US Abdomen Complete w Doppler Complete (10/13/2025 10:55 AM SENIOR ENERGY CONSULTANT)Anatomical RegionLateralityModalityAbdomen/Pelvis, VascularUltrasoundSpecimen (Source) Anatomical Location / LateralityCollection Method / VolumeCollection Time Received Time10/13/2025 10:55 AM SENIOR ENERGY CONSULTANT Impressions 10/13/2025 2:53 PM SENIOR ENERGY CONSULTANT IMPRESSION: 1. ??Cirrhosis, with features of portal hypertension including splenomegaly and a small amount of ascites. 2. ??Reversal of flow throughout the portal veins, as can be seen with portal hypertension. The liver Doppler exam is otherwise normal. 3. ??Cholelithiasis. No evidence of acute cholecystitis. 4. ??No biliary ductal dilation. 5. ??Normal kidneys, without hydronephrosis. Narrative 10/13/2025 2:53 PM SENIOR ENERGY CONSULTANT EXAM: US ABDOMEN COMPLETE WITH DOPPLER COMPLETE LOCATION: [facility] DATE: 10/13/2025 INDICATION: Evaluate for common bile duct stone and PV thrombosis in setting of subacutely decompensated cirrhosis. COMPARISON: CT abdomen pelvis 10/13/2025. TECHNIQUE: Complete abdominal ultrasound. Color flow with spectral Doppler and waveform analysis performed. FINDINGS: GALLBLADDER: Cholelithiasis. No gallbladder wall thickening or pericholecystic fluid. Sonographic Pang's sign is negative. BILE DUCTS: No biliary dilatation. The common duct measures 6 mm. LIVER: Cirrhotic liver morphology. No suspicious liver observations. RIGHT KIDNEY: 13.6 cm. Normal cortical thickness and echogenicity. No hydronephrosis or sonographically detectable calculi. LEFT KIDNEY: 13.8 cm. Normal cortical thickness and echogenicity. No hydronephrosis or sonographically detectable calculi. SPLEEN: Enlarged, measuring 14.2 cm. Homogenous parenchyma. PANCREAS: The visualized portions are normal. AORTA: Normal in caliber. IVC: Normal where visualized. Small amount of upper abdominal ascites. ABDOMINAL DUPLEX: Right portal, left portal, and main portal veins are patent with hepatofugal flow. Splenic vein at the splenic hilum is patent with anterograde flow. Left, middle, and right hepaticveins are patent with anterograde flow. Hepatic arteries are patent with normal spectral Doppler waveforms. IVC is patent. Procedure Note Philippe Ambrose MD - 10/13/2025 EXAM: US ABDOMEN COMPLETE WITH DOPPLER COMPLETE LOCATION: [facility] DATE: 10/13/2025 INDICATION: Evaluate for common bile duct stone and PV thrombosis insetting of subacutely decompensated cirrhosis. COMPARISON: CT abdomen pelvis 10/13/2025. TECHNIQUE: Complete abdominal ultrasound. Color flow with spectral Dopplerand waveform analysis performed. FINDINGS: GALLBLADDER: Cholelithiasis. No gallbladder wall thickening orpericholecystic fluid. Sonographic Pang's sign is negative. BILE DUCTS: No biliary dilatation. The common duct measures 6 mm. LIVER: Cirrhotic liver morphology. No suspicious liver observations. RIGHT KIDNEY: 13.6 cm. Normal cortical thickness and echogenicity. No hydronephrosis or sonographically detectable calculi. LEFT KIDNEY: 13.8 cm. Normal cortical thickness and echogenicity. No hydronephrosis or sonographically detectable calculi. SPLEEN: Enlarged, measuring 14.2 cm. Homogenous parenchyma. PANCREAS: The visualized portions are normal. AORTA: Normal in caliber. IVC: Normal where visualized. Small amount of upper abdominal ascites. ABDOMINAL DUPLEX: Right portal, left portal, and main portal veins arepatent with hepatofugal flow. Splenic vein at the splenic hilum is patentwith anterograde flow. Left, middle, and right hepatic veins are patentwith anterograde flow. Hepatic arteries are patent with normal spectral Doppler waveforms. IVC ispatent. IMPRESSION: 1. Cirrhosis, with features of portal hypertension including splenomegalyand a small amount of ascites. 2. Reversal of flow throughout the portal veins, as can be seen withportal hypertension. The liver Doppler exam is otherwise normal. 3. Cholelithiasis. No evidence of acute cholecystitis. 4. No biliary ductal dilation. 5. Normal kidneys, without hydronephrosis. Authorizing ProviderResult TypeResult StatusCrystal DAO US ORDERABLES Final Result * (ABNORMAL) CBC with Platelets (Limited Occurrences) (10/13/2025 5:43 AM SENIOR ENERGY CONSULTANT) ComponentValueRef RangeTest MethodAnalysis TimePerformed AtPathologist SignatureWBC Count6.254.00 - 11.00 10e3/uL10/13/2025 6:33 AM [facility] RBC Count3.62(L)4.40 - 5.90 10e6/uL10/13/2025 6:33 AM [facility] Hemoglobin8.3(L)13.3 - 17.7 g/dL10/13/2025 6:33 AM [facility] LABORATORYHematocrit 27.7(L)40.0 - 53.0 %10/13/2025 6:33 AM [facility] KTIKQRBWTIWIK10.5(L)78.0 - 100.0 fL10/13/2025 6:33 AM [facility] UFHUMUGLPQRKK56.9(L)26.5 - 33.0 pg10/13/2025 6:33 AM [facility] YBEJVYOUGVHRGV41.0(L)31.5 - 36.5 g/dL10/13/2025 6:33 AM [facility] MVMHNDAAXXKJY21.9(H)10.0 - 15.0 %10/13/2025 6:33 AM [facility] LABORATORYPlatelet Hgqxi069(L)150 - 450 10e3/uL10/13/2025 6:33 AM [facility] LABORATORYSpecimen (Source)Anatomical Location / LateralityCollection Method / VolumeCollection TimeReceived TimeBloodBLOOD SPECIMEN / UnknownVenipuncture / Looqmyj2610/13/2025 5:43 AM CST10/13/2025 6:19 AM SENIOR ENERGY CONSULTANT Narrative Authorizing ProviderResult TypeResult StatusCrystal US - BLOOD ORDERABLESFinal ResultPerforming OrganizationAddressCity/State/ZIP CodePhone Number [facility] Lab [address] [facility] Lab (1st floor, no room number) [place] [address], [facility] * (ABNORMAL) Comprehensive Metabolic Panel (Limited Occurrences) (10/13/2025 5:43 AM [facility])ComponentValueRef RangeTest MethodAnalysis TimePerformed At Pathologist WtjwsblnmWilgnk650(L)135 - 145 mmol/L112/14/2024 7:59 AM [facility] LABORATORYPotassium2.8(L)3.4 - 5.3 mmol/L112/14/2024 7:59 AM [facility] Carbon Dioxide (CO2)2322 - 29 mmol/L112/14/2024 7:59 AM [facility] LABORATORYAnion Dpz706 - 15 mmol/L112/14/2024 7:59 AM [facility] LABORATORYUrea Wmjepxal60.7(H)6.0 - 20.0 mg/dL10/13/2025 7:59 AM [facility] LABORATORYCreatinine1.21(H)0.67 - 1.17 mg/dL10/13/2025 7:59 AM [facility] LABORATORYGFR Bxcgethf35>60 mL/min/1.73m2 10/13/2025 7:59 AM [facility] LABORATORYComment:eGFR calculated using 2020 CKD-EPI equation.Calcium7.8(L)8.8 - 10.4 mg/dL10/13/2025 7:59 AM [facility] Cvzmzkru33(L)98 - 107 mmol/L112/14/2024 7:59 AM [facility] OXUKQKQIMPXvercra3457 - 99 mg/dL10/13/2025 7:59 AM [facility] LABORATORYAlkaline Vbaeywiccbp198(H)40 - 150 U/L112/14/2024 7:59 AM [facility] IEZUSVLWISCWE736(H)0 - 45 U/L112/14/2024 7:59 AM [facility] EFAKJLCYUXTSE947 - 70 U/L112/14/2024 7:59 AM [facility] LABORATORYProtein Total6.3(L)6.4 - 8.3 g/dL10/13/2025 7:59 AM [facility] LABORATORYAlbumin2.6(L)3.5 - 5.2 g/dL10/13/2025 7:59 AM [facility] LABORATORYBilirubin Total15.7(HH)<=1.2 mg/dL 10/13/2025 7:59 AM [facility] LABORATORYSpecimen (Source)Anatomical Location / LateralityCollection Method / VolumeCollection TimeReceived TimeBloodBLOOD SPECIMEN / UnknownVenipuncture / Iaeewep2810/13/2025 5:43 AM CST10/13/2025 6:19 AM SENIOR ENERGY CONSULTANT Narrative Authorizing ProviderResult TypeResult StatusCrystal US - BLOOD ORDERABLESFinal ResultPerforming OrganizationAddressCity/State/ZIP CodePhone Number [facility] [address] [facility] ([facility], no room number) [place] [address], [facility] * Acute hepatitis panel (10/13/2025 5:43 AM SENIOR ENERGY CONSULTANT)ComponentValueRef RangeTest MethodAnalysis TimePerformed AtPathologist SignatureHepatitis A Antibody IgM FxchpfwrwxiHvtldhccvka49/27/2025 11:06 AM CSTUU LABORATORYComment: Nonreactive results indicate either inadequate or delayed anti-HAV IgM response after known exposure to HAV or absence of acute or recent hepatitis A. Assay performance characteristics have not been established for immunocompromised or immunosuppressed patients. Hepatitis B Core Antibody DzSWaaucungmzpMreucvyjncu46/27/2025 11:06 AM CSTUU LABORATORYComment: A nonreactive result suggests lack of recent exposure to the virus in the preceding 6 months. Assay performance characteristics have not been established in patients under 21, women, or in populations of immunocompromised or immunosuppressed patients. This assay has not been FDA Licensed for the screening of blood, plasma, and tissue donors. Hepatitis C SaqzcrqlQyytpqtsrsrVyvpdqtvqlj63/27/2025 11:06 AM [facility] Comment: A nonreactive screening test result does not exclude the possibility of exposure to or infection with HCV. Nonreactive screening test results in individuals with prior exposure to HCV may be due to antibody levels below the limit of detection of this assay or lack of reactivity to the HCV antigens used in this assay. Patients with recent HCV infections (<3 months from time of exposure) may have false-negative HCV antibody results due to the time needed for seroconversion (average of 8 to 9 weeks). Assay performance characteristics have not been established in populations of immunocompromised or immunosuppressed patients. Hepatitis B Surface NtbtlonIbyppoqmgjzNppzopitqpe06/27/2025 11:06 AM CSTUU LABORATORYComment: Assay performance characteristics have not been established for testing of newborns. Specimen (Source)Anatomical Location / LateralityCollection Method / Volume Collection TimeReceived TimeBloodBLOOD SPECIMEN / UnknownVenipuncture / Unknown 10/13/2025 5:43 AM CST10/13/2025 6:19 AM SENIOR ENERGY CONSULTANT Narrative Authorizing ProviderResult TypeResult StatusCrystal Sams MDLAB - BLOOD ORDERABLESFinal ResultPerforming OrganizationAddressCity/State/ZIP CodePhone Number [facility] LAB[facility]ATORY [facility] [place] Core Lab [address] [facility], [address] [address] * EKG 12-lead, tracing only (10/13/2025 2:01 AM SENIOR ENERGY CONSULTANT)ComponentValueRef RangeTest MethodAnalysis TimePerformed AtPathologist SignatureSystolic Blood Pressure mmHgRADIOLOGY RESULTSDiastolic Blood PressuremmHgRADIOLOGY RESULTSVentricular Zsab00GAGMRIYFXPOM RESULTSAtrial Gkcc56HQYGETSVTHQB RESULTSPR Ferouybx624cw RADIOLOGY RESULTSQRS Pnpivbek390fnOMKNHEXJW NDXNGQIMQ036zgJMMLZYQJQ RESULTSQTc 505msRADIOLOGY RESULTSP Yzry61hnepookGBDCQSPTY RESULTSR HVKW597ppxdjoq RADIOLOGY RESULTST Mqho27frdpjclYWTBMUOQG RESULTSInterpretation ECGSinus rhythm Right axis deviation Prolonged QT Abnormal ECG When compared with ECG of 16-May-2023 17:04, No significant change was found Confirmed by SEE ED PROVIDER NOTE FOR, ECG INTERPRETATION ([id number]), film and video editor LASHELL ENGLISH ([id number]) on 10/14/2025 9:41:16 AM RADIOLOGY RESULTSSpecimen (Source)Anatomical Location / LateralityCollection Method / VolumeCollection TimeReceived Time10/13/2025 2:01 AM CST10/14/2025 9:41 AM SENIOR ENERGY CONSULTANT Narrative Authorizing ProviderResult TypeResult StatusKatie Messer DOECG ORDERABLES Edited Result - FinalPerforming OrganizationAddressCity/State/ZIP CodePhone Number RADIOLOGY RESULTS * Abd/pelvis CT, IV contrast only TRAUMA / AAA (10/13/2025 1:39 AM SENIOR ENERGY CONSULTANT) Anatomical RegionLateralityModalityAbdomen/Pelvis, SUBRAD CT BODY, UMP CT ABDOMEN PELVIS, RAD CTComputed TomographySpecimen (Source)Anatomical Location / LateralityCollection Method / VolumeCollection TimeReceived Time10/13/2025 1:39 AM SENIOR ENERGY CONSULTANT Impressions 10/13/2025 1:50 AM SENIOR ENERGY CONSULTANT IMPRESSION: 1. ??Cirrhosis with marked splenomegaly and scattered ascites in the abdomen and pelvis. 2. ??Gallstones. 3. ??Nonobstructing renal stones. Narrative 10/13/2025 1:50 AM SENIOR ENERGY CONSULTANT EXAM: CT ABDOMEN PELVIS W CONTRAST LOCATION: [facility] DATE: 10/13/2025 INDICATION: worsening ascites jaundice COMPARISON: CT from 05/16/2023. TECHNIQUE: CT scan of the abdomen and pelvis was performed following injection of IV contrast. Multiplanar reformats were obtained. Dose reduction techniques were used. CONTRAST: 100 mL Omni ?? 350 FINDINGS: LOWER CHEST: Bibasilar atelectasis or fibrosis. HEPATOBILIARY: Nodular liver surface contour. Recannulated paraumbilical vein. Tiny gallstones. PANCREAS: Normal. SPLEEN: The spleen is markedly enlarged, measuring 20 cm anteroposterior. ADRENAL GLANDS: Normal. KIDNEYS/BLADDER: There is a 2 mm nonobstructing left lower pole renal stone. There are 1 mm and 2 mm stones in the right renal upper and lower poles, respectively. No hydronephrosis. Bladder is nearly empty. BOWEL: Stomach is decompressed. No small bowel obstruction or free air. Normal appendix. Small to moderate amount of ascites. LYMPH NODES: Normal. VASCULATURE: Large retroperitoneal portosystemic venous collaterals. Aortoiliac atherosclerotic calcification without aneurysm. PELVIC ORGANS: Ascites. MUSCULOSKELETAL: Chronic anterior wedging deformity at T11. Body wall edema. There is a small supraumbilical ventral hernia containing ascites. Procedure Note Juma Grace MD - 10/13/2025 EXAM: CT ABDOMEN PELVIS W CONTRAST LOCATION: [facility] DATE: 10/13/2025 INDICATION: worsening ascites jaundice COMPARISON: CT from 05/16/2023. TECHNIQUE: CT scan of the abdomen and pelvis was performed followinginjection of IV contrast. Multiplanar reformats were obtained. Dosereduction techniques were used. CONTRAST: 100 mL Omni 350 FINDINGS: LOWER CHEST: Bibasilar atelectasis or fibrosis. HEPATOBILIARY: Nodular liver surface contour. Recannulated paraumbilicalvein. Tiny gallstones. PANCREAS: Normal. SPLEEN: The spleen is markedly enlarged, measuring 20 cmanteroposterior. ADRENAL GLANDS: Normal. KIDNEYS/BLADDER: There is a 2 mm nonobstructing left lower pole renalstone. There are 1 mm and 2 mm stones in the right renal upper and lowerpoles, respectively. No hydronephrosis. Bladder is nearly empty. BOWEL: Stomach is decompressed. No small bowel obstruction or free air.Normal appendix. Small to moderate amount of ascites. LYMPH NODES: Normal. VASCULATURE: Large retroperitoneal portosystemic venous collaterals.Aortoiliac atherosclerotic calcification without aneurysm. PELVIC ORGANS: Ascites. MUSCULOSKELETAL: Chronic anterior wedging deformity at T11. Body walledema. There is a small supraumbilical ventral hernia containingascites. IMPRESSION: 1. Cirrhosis with marked splenomegaly and scattered ascites in theabdomen and pelvis. 2. Gallstones. 3. Nonobstructing renal stones. Authorizing ProviderResult TypeResult Dara Messer [facility] CT ORDERABLESFinal Result * (ABNORMAL) Glucose by meter (10/13/2025 12:14 AM SENIOR ENERGY CONSULTANT)ComponentValueRef Range Test MethodAnalysis TimePerformed AtPathologist SignatureGLUCOSE BY METER POCT 161(H)70 - 99 mg/dL10/13/2025 12:21 AM CST LABORATORY POCSpecimen (Source) Anatomical Location / LateralityCollection Method / VolumeCollection Time Received TimeBlood, CapillaryBLOOD SPECIMEN / Jflbtzs7410/13/2025 12:14 AM SENIOR ENERGY CONSULTANT 10/13/2025 12:21 AM SENIOR ENERGY CONSULTANT Narrative Authorizing ProviderResult TypeResult Dara Messer [facility] POCTFinal ResultPerforming OrganizationAddressCity/State/ZIP CodePhone Number LABORATORY [facility] Acute Care Lab [address] [facility] Lab (1st floor, no room number) [place] [address], [facility] * Ferritin (10/13/2025 12:06 AM SENIOR ENERGY CONSULTANT)ComponentValueRef RangeTest MethodAnalysis TimePerformed AtPathologist UwbudgyucTbjrjbdx9235 - 409 ng/mL10/13/2025 11:15 AM CSTUU LABORATORYSpecimen (Source)Anatomical Location / LateralityCollection Method / VolumeCollection TimeReceived TimeBloodBLOOD SPECIMEN / Unknown Venipuncture / Sseuknh0610/13/2025 12:06 AM CST10/13/2025 12:08 AM SENIOR ENERGY CONSULTANT Narrative Authorizing ProviderResult TypeResult StatusCrystal Sams MDLAB - BLOOD ORDERABLESFinal ResultPerforming OrganizationAddressCity/State/ZIP CodePhone Number LABORATORY [facility] [place] Core Lab [address] [facility] [address] Building, [address] [place] [address], [facility] * Magnesium (Limited Occurrences) (10/13/2025 12:06 AM SENIOR ENERGY CONSULTANT)ComponentValueRef RangeTest MethodAnalysis TimePerformed AtPathologist SignatureMagnesium1.91.7 - 2.3 mg/dL10/13/2025 1:52 AM [facility] LABORATORYSpecimen (Source)Anatomical Location / LateralityCollection Method / VolumeCollection TimeReceived Time BloodBLOOD SPECIMEN / UnknownVenipuncture / Nsnnskh5310/13/2025 12:06 AM SENIOR ENERGY CONSULTANT 10/13/2025 12:08 AM SENIOR ENERGY CONSULTANT Narrative Authorizing ProviderResult TypeResult StatusKatie JEFFERSONAB - BLOOD ORDERABLESFinal ResultPerforming OrganizationAddressCity/State/ZIP CodePhone Number LABORATORY [facility] Acute Care Lab [address] Lab (1st floor, no room number) [place] [address] * (ABNORMAL) CBC with platelets and differential (10/13/2025 12:06 AM SENIOR ENERGY CONSULTANT) ComponentValueRef RangeTest MethodAnalysis TimePerformed AtPathologist SignatureWBC Count7.184.00 - 11.00 10e3/uL10/13/2025 12:29 AM [facility] RBC Count3.45(L)4.40 - 5.90 10e6/uL10/13/2025 12:29 AM [facility] Hemoglobin8.0(L)13.3 - 17.7 g/dL10/13/2025 12:29 AM [facility] LABORATORYHematocrit 26.6(L)40.0 - 53.0 %10/13/2025 12:29 AM [facility] OOLBSZXZEREWY28.1(L)78.0 - 100.0 fL10/13/2025 12:29 AM [facility] ZQZPHGHIQVBWZ50.2(L)26.5 - 33.0 pg10/13/2025 12:29 AM [facility] QIHBVNADOKIHQP65.1(L)31.5 - 36.5 g/dL10/13/2025 12:29 AM [facility] AYWNTIAFEGTAR99.1(H)10.0 - 15.0 %10/13/2025 12:29 AM [facility] LABORATORYPlatelet Xmgly499(L)150 - 450 10e3/uL10/13/2025 12:29 AM [facility]% Neutrophils 66.5%10/13/2025 12:29 AM [facility]% Kzjpxhwdwnq29.3%10/13/2025 12:29 AM [facility]% Dgxeywrpp67.3%10/13/2025 12:29 AM [facility]% Eosinophils6.7%10/13/2025 12:29 AM [facility]% Basophils0.8%10/13/2025 12:29 AM [facility]% Immature Granulocytes0.4%10/13/2025 12:29 AM [facility] LABORATORYNRBCs per 100 WBC0.0<1.0 /1710010/13/2025 12:29 AM [facility] Absolute Neutrophils4.771.60 - 8.30 10e3/uL10/13/2025 12:29 AM [facility] LABORATORYAbsolute Lymphocytes1.100.80 - 5.30 10e3/uL10/13/2025 12:29 AM [facility] LABORATORYAbsolute Monocytes0.740.00 - 1.30 10e3/uL10/13/2025 12:29 AM [facility] LABORATORYAbsolute Eosinophils0.480.00 - 0.70 10e3/uL10/13/2025 12:29 AM [facility] LABORATORYAbsolute Basophils0.060.00 - 0.20 10e3/uL10/13/2025 12:29 AM [facility] LABORATORYAbsolute Immature Granulocytes0.03<=0.40 10e3/uL10/13/2025 12:29 AM [facility] LABORATORYAbsolute NRBCs<0.0310e3/uL10/13/2025 12:29 AM [facility] Specimen (Source)Anatomical Location / LateralityCollection Method / Volume Collection TimeReceived TimeBloodBLOOD SPECIMEN / UnknownVenipuncture / Zlicntd7110/13/2025 12:06 AM CST10/13/2025 12:08 AM [facility] Authorizing ProviderResult TypeResult StatusLinike Messer DOLAB - BLOOD ORDERABLESFinal ResultPerforming OrganizationAddressCity/State/ZIP CodePhone Number [facility] [address] Lab (1st floor, no room number) [place] [address], [facility] * (ABNORMAL) Bilirubin direct (10/13/2025 12:06 AM SENIOR ENERGY CONSULTANT)ComponentValueRef Range Test MethodAnalysis TimePerformed AtPathologist SignatureBilirubin Cudmmh92.99 (H)0.00 - 0.30 mg/dL10/13/2025 1:21 AM [facility] LABORATORYComment:As of 02/28/25, reference ranges and trending lines may vary depending on the testing location.Specimen (Source)Anatomical Location / LateralityCollection Method / VolumeCollection TimeReceived TimeBloodBLOOD SPECIMEN / UnknownVenipuncture / Afmazfy6010/13/2025 12:06 AM CST10/13/2025 12:08 AM SENIOR ENERGY CONSULTANT Narrative Authorizing ProviderResult TypeResult StatusLinike Messer DOLAB - BLOOD ORDERABLESFinal ResultPerforming OrganizationAddressCity/State/ZIP CodePhone Number [facility] Lab [address] Lab (1st floor, no room number) [place] [address], [facility] * Ethanol Level Blood (10/13/2025 12:06 AM SENIOR ENERGY CONSULTANT)ComponentValueRef RangeTest MethodAnalysis TimePerformed AtPathologist SignatureEthanol Level Blood<0.01 <=0.01 g/dL10/13/2025 12:27 AM [facility] LABORATORYSpecimen (Source)Anatomical Location / LateralityCollection Method / VolumeCollection TimeReceived Time BloodBLOOD SPECIMEN / UnknownVenipuncture / Byhvqhk8110/13/2025 12:06 AM SENIOR ENERGY CONSULTANT 10/13/2025 12:08 AM SENIOR ENERGY CONSULTANT Narrative Authorizing ProviderResult TypeResult StatusKatie Messer DOLAB - BLOOD ORDERABLESFinal ResultPerforming OrganizationAddressty/State/ZIP CodePhone Number [facility] [address] Lab (1st floor, no room number) [place] [address], [facility] * (ABNORMAL) INR (10/13/2025 12:06 AM SENIOR ENERGY CONSULTANT)ComponentValueRef RangeTest Method Analysis TimePerformed AtPathologist SignatureINR1.84(H)0.85 - 1.15112/14/2024 12:22 AM [facility] CGADFBMMPSTY21.9(H)11.8 - 14.8 Xevcsuv7910/13/2025 12:22 AM [facility] LABORATORYSpecimen (Source)Anatomical Location / LateralityCollection Method / VolumeCollection TimeReceived TimeBloodBLOOD SPECIMEN / UnknownVenipuncture / Xomioxo0010/13/2025 12:06 AM CST10/13/2025 12:08 AM SENIOR ENERGY CONSULTANT Narrative Authorizing ProviderResult TypeResult StatusLinvargheseleigh Messer DOLAB - BLOOD ORDERABLESFinal ResultPerforming OrganizationAddressCity/State/ZIP CodePhone Number [facility] [address] [facility], no room number) [address] [address] [place] [address] * (ABNORMAL) Lipase (10/13/2025 12:06 AM SENIOR ENERGY CONSULTANT)ComponentValueRef RangeTest Method Analysis TimePerformed AtPathologist HtewqcoerRrxmwu135(H)13 - 60 U/L 10/13/2025 12:27 AM [facility]YS[facility]imen (Source)Anatomical Location / LateralityCollection Method / VolumeCollection TimeReceived TimeBloodBLOOD SPECIMEN / UnknownVenipuncture / Gxoajlo7110/13/2025 12:06 AM CST10/13/2025 12:08 AM SENIOR ENERGY CONSULTANT Narrative Authorizing ProviderResult TypeResult StatusKatie Arriaza Ayde DOLAB - BLOOD ORDERABLESFinal ResultPerforming OrganizationAddressty/State/ZIP CodePhone Number [facility] [address] Lab (1st floor, no room number) [address] * (ABNORMAL) Comprehensive Metabolic Panel (Limited Occurrences) (10/13/2025 12:06 AM SENIOR ENERGY CONSULTANT)ComponentValueRef RangeTest MethodAnalysis TimePerformed At Pathologist NrvgbwypqZqqmyd885(L)135 - 145 mmol/L112/14/2024 1:21 AM [facility]ORATORYPotassium3.0(L)3.4 - 5.3 mmol/L112/14/2024 1:21 AM [facility] Carbon Dioxide (CO2)2322 - 29 mmol/L112/14/2024 1:21 AM [facility] LABORATORYAnion Fba605 - 15 mmol/L112/14/2024 1:21 AM [facility] LABORATORYUrea Gpyubazv00.5(H)6.0 - 20.0 mg/dL10/13/2025 1:21 AM [facility]ORATORYCreatinine1.19(H)0.67 - 1.17 mg/dL10/13/2025 1:21 AM [facility]ORATORYGFR Meidebxs63>60 mL/min/1.73m2 10/13/2025 1:21 AM [facility] LABORATORYComment:eGFR calculated using 2020 CKD-EPI equation.Calcium7.9(L)8.8 - 10.4 mg/dL10/13/2025 1:21 AM [facility] Gydkvjan65(L)98 - 107 mmol/L112/14/2024 1:21 AM [facility] PMARGZVFQSLdyvkzi082(H)70 - 99 mg/dL10/13/2025 1:21 AM [facility] LABORATORYAlkaline Alaxhsdxchk925(H)40 - 150 U/L112/14/2024 1:21 AM [facility] RNIYVLEHXKDQV842(H)0 - 45 U/L112/14/2024 1:21 AM [facility] PZODQBQBEANWO414 - 70 U/L112/14/2024 1:21 AM [facility] LABORATORYProtein Total6.1(L)6.4 - 8.3 g/dL10/13/2025 1:21 AM [facility] LABORATORYAlbumin2.5(L)3.5 - 5.2 g/dL10/13/2025 1:21 AM [facility] LABORATORYBilirubin Total16.0(HH)<=1.2 mg/dL 10/13/2025 1:21 AM [facility]ORATORYSpecimen (Source)Anatomical Location / LateralityCollection Method / VolumeCollection TimeReceived TimeBloodBLOOD SPECIMEN / UnknownVenipuncture / Hxdpqjx4110/13/2025 12:06 AM CST10/13/2025 12:08 AM [facility] Narrative Authorizing ProviderResult TypeResult StatusLinike Messer DOLAB - BLOOD ORDERABLESFinal ResultPerforming OrganizationAddressCity/State/ZIP CodePhone Number [facility] [address] [facility] Lab (1st floor, no room number) [place] [address], [facility] documented in this encounter Visit Diagnoses Diagnosis Alcoholic cirrhosis of liver with ascites (H)- Primary Alcoholic cirrhosis of liver Alcoholic cirrhosis of liver with ascites (H) Alcoholic cirrhosis of liver Jaundice Jaundice, unspecified, not of Hypokalemia Hypopotassemia Anemia, unspecified type Itching Unspecified pruritic disorder Decompensated liver disease (H) documented in this encounter Admitting Diagnoses Diagnosis Alcoholic cirrhosis of liver with ascites (H) Alcoholic cirrhosis of liver Decompensated liver disease (H) documented in this encounter Administered Medications Medication OrderMAR ActionAction DateDoseRateSite calcium carbonate (TUMS) chewable tablet 1,000 mg 1,000 mg, Oral, 2 TIMES DAILY PRN, heartburn, Starting on 10/13/25 at 0306 $Given10/14/2025 1:19 PM CST1,000 mg cholestyramine (QUESTRAN) Packet 4 g 4 g (1 packet), Oral, 2 TIMES DAILY, First dose on 10/13/25 at 2100, Powder must be mixed with fluid before administration. Schedule cholestyramine to be given one hour after other oral meds or four hours before (or as close to this as possible). $Given10/14/2025 9:49 AM CST4 g$Given10/13/2025 9:40 PM CST4 g diphenhydrAMINE (BENADRYL) capsule 25 mg 25 mg, Oral, EVERY 6 HOURS PRN, itching, Starting on 10/13/25 at 1012 $Given10/14/2025 9:07 AM CST25 mg$Given10/13/2025 8:06 PM CST25 mg$Given 10/13/2025 11:01 AM CST25 mg furosemide (LASIX) injection 20 mg 20 mg, Intravenous, EVERY 4 HOURS, First dose on 10/13/25 at 0310, For 2 doses, Administer each20 mg, undiluted over 1 minute IV PUSH. $Given10/13/2025 6:47 AM CST20 mg$Given10/13/2025 3:30 AM CST20 mg furosemide (LASIX) tablet 40 mg 40 mg, Oral, DAILY, First dose on 10/14/25 at 0900 $Given10/14/2025 8:56 AM CST40 mg iohexol (OMNIPAQUE) 350 MG/ML injectable solution 100 mL 100 mL, Intravenous, ONCE, On 10/13/25 at 0135, For 1 dose $Given10/13/2025 1:33 AM HOS092 mLs ondansetron (ZOFRAN ODT) ODT tab 4 mg 4 mg, Oral, EVERY 6 HOURS PRN, nausea/vomiting - 1st line, Starting on 10/13/25 at 0306, This is Step 1 of nausea and vomiting management. If nausea not resolved in 15 minutes, go to Step 2 prochlorperazine (COMPAZINE). With dry hands, peel back foil backing and gently remove tablet. Do not push oral disintegrating tablet through foil backing. Administer immediately on tongue and oral disintegrating tablet dissolves in seconds, then swallow with saliva. Liquid not required. ondansetron (ZOFRAN) injection 4 mg 4 mg, Intravenous, EVERY 6 HOURS PRN, nausea/vomiting - 1st line, Administer over 2-5 Minutes, Starting on 10/13/25 at 0306, Give IF patient unable to tolerate oral medication. This is Step 1 of nausea and vomiting management. If nausea not resolved in 15 minutes, go to Step 2 prochlorperazine (COMPAZINE). polyethylene glycol (MIRALAX) Packet 17 g 17 g, Oral, 2 TIMES DAILY PRN, constipation, Starting on 10/13/25 at 1656, 1 Packet = 17 grams.Mix each gram with at least 1/2 ounce (15 mL) of water - 8 ounces for 17 g dose, 4 ounces for 8.5 gdose, 2 ounces for 4 g dose. Follow with the same volume of water. Hold for loose stools unless being administered as part of a bowel prep regimen or bowel clean out. $Given10/13/2025 6:27 PM CST17 g potassium chloride javi ER (KLOR-CON M20) CR tablet 20 mEq 20 mEq, Oral, ONCE, On 10/13/25 at 1125, For 1 dose, Potassium level 2.7 - 3 mmol/L Ordered from the Potassium replacement order set. DO NOT CRUSH, Potassium Replacement: Potassium level 2.7-3 mmol/L, Recheck: Potassium level 4 hours AFTER last oral dose $Given10/13/2025 12:59 PM CST20 mEq potassium chloride javi ER (KLOR-CON M20) CR tablet 20 mEq 20 mEq, Oral, ONCE, On 10/13/25 at 2030, For 1 dose, Potassium level 2.7 - 3 mmol/L Ordered from the Potassium replacement order set. DO NOT CRUSH, Potassium Replacement: Potassium level 2.7-3 mmol/L, Recheck: Potassium level 4 hours AFTER last oral dose $Given10/13/2025 8:06 PM CST20 mEq potassium chloride javi ER (KLOR-CON M20) CR tablet 40 mEq 40 mEq, Oral, ONCE, On 10/13/25 at 0130, For 1 dose, DO NOT CRUSH $Given10/13/2025 1:47 AM CST40 mEq potassium chloride javi ER (KLOR-CON M20) CR tablet 40 mEq 40 mEq, Oral, ONCE, On 10/13/25 at 0925, For 1 dose, Potassium level 2.7 - 3 mmol/L Ordered from the Potassium replacement order set. DO NOT CRUSH, Potassium Replacement: Potassium level 2.7-3 mmol/L, Recheck: Potassium level 4 hours AFTER last oral dose $Given10/13/2025 10:50 AM CST40 mEq potassium chloride javi ER (KLOR-CON M20) CR tablet 40 mEq 40 mEq, Oral, ONCE, On 10/13/25 at 1830, For 1 dose, Potassium level 2.7 - 3 mmol/L Ordered from the Potassium replacement order set. DO NOT CRUSH, Potassium Replacement: Potassium level 2.7-3 mmol/L, Recheck: Potassium level 4 hours AFTER last oral dose $Given10/13/2025 6:26 PM CST40 mEq potassium chloride javi ER (KLOR-CON M20) CR tablet 40 mEq 40 mEq, Oral, ONCE, On 10/14/25 at 0200, For 1 dose, Potassium level 3.1 - 3.4 mmol/L Ordered from the Potassium replacement order set. DO NOT CRUSH, Potassium Replacement: Potassium level 3.1-3.4 mmol/L, Recheck: Potassium level 4 hours AFTER last oral dose $Given10/14/2025 2:12 AM CST40 mEq sodium chloride (PF) 0.9% PF flush 3 mL 3 mL, Intracatheter, EVERY 8 HOURS, First dose on 10/13/25 at 0310, to lock peripheral IV dormant line $Given10/14/2025 11:54 AM CST3 mLs$Given10/13/2025 6:27 PM CST3 mLs$Given 10/13/2025 12:18 PM CST3 mLs sodium chloride (PF) 0.9% PF flush 3 mL 3 mL, Intracatheter, EVERY 1 MIN PRN, line flush, other, to ensure patency or to lock dormant line,Starting on 10/13/25 at 0306 $Given10/14/2025 12:01 AM CST3 mLs sodium chloride 0.9 % bag for CT scan flush Intravenous, 65 mL, ONCE, On 10/13/25 at 0135, For 1 dose, This entry is for use by Radiology to intermittently used as a flush in patients receiving a CT scan. $Given10/13/2025 1:34 AM CST65 mLs spironolactone (ALDACTONE) tablet 50 mg 50 mg, Oral, DAILY, First dose on 10/13/25 at 1330 $Given10/14/2025 8:56 AM CST50 mg$Given10/13/2025 2:15 PM CST50 mgdocumented in this encounter Active and Recently Administered Medications Times are shown in SENIOR ENERGY CONSULTANT.Medication Order/ cholestyramine (QUESTRAN) Packet 4 g 4 g (1 packet), Oral, 2 TIMES DAILY, First dose on 10/13/25 at 2100, Powder must be mixed with fluid before administration. Schedule cholestyramine to be given one hour after other oral meds or four hours before (or as close to this as possible). * 2140 ($Given - Provider: Cole Weiss RN) * 0949 ($Given - Provider: Pio Hollins, BELLA) furosemide (LASIX) injection 20 mg (COMPLETED) 20 mg, Intravenous, EVERY 4 HOURS, First dose on 10/13/25 at 0310, For 2 doses, Administer each20 mg, undiluted over 1 minute IV PUSH. * 0330 ($Given - Provider: Rosanna Hill, BELLA) * 0647 ($Given - Provider: Nasreen Cadet, BELLA) furosemide (LASIX) tablet 40 mg 40 mg, Oral, DAILY, First dose on 10/14/25 at 0900 * 0856 ($Given - Provider: Pio Hollins RN) iohexol (OMNIPAQUE) 350 MG/ML injectable solution 100 mL (COMPLETED) 100 mL, Intravenous, ONCE, On 10/13/25 at 0135, For 1 dose * 0133 ($Given - Provider: STEPAN Mayer) potassium chloride javi ER (KLOR-CON M20) CR tablet 20 mEq (COMPLETED) 20 mEq, Oral, ONCE, On 10/13/25 at 1125, For 1 dose, Potassium level 2.7 - 3 mmol/L Ordered from the Potassium replacement order set. DO NOT CRUSH, Potassium Replacement: Potassium level 2.7-3 mmol/L, Recheck: Potassium level 4 hours AFTER last oral dose * 1259 ($Given - Provider: Mariela Marcus RN) potassium chloride javi ER (KLOR-CON M20) CR tablet 20 mEq (COMPLETED) 20 mEq, Oral, ONCE, On 10/13/25 at 2030, For 1 dose, Potassium level 2.7 - 3 mmol/L Ordered from the Potassium replacement order set. DO NOT CRUSH, Potassium Replacement: Potassium level 2.7-3 mmol/L, Recheck: Potassium level 4 hours AFTER last oral dose * 2006 ($Given - Provider: Cole Weiss RN) potassium chloride javi ER (KLOR-CON M20) CR tablet 40 mEq (COMPLETED) 40 mEq, Oral, ONCE, On 10/13/25 at 0130, For 1 dose, DO NOT CRUSH * 0147 ($Given - Provider: Rosanna Hill RN) potassium chloride javi ER (KLOR-CON M20) CR tablet 40 mEq (COMPLETED) 40 mEq, Oral, ONCE, On 10/13/25 at 0925, For 1 dose, Potassium level 2.7 - 3 mmol/L Ordered from the Potassium replacement order set. DO NOT CRUSH, Potassium Replacement: Potassium level 2.7-3 mmol/L, Recheck: Potassium level 4 hours AFTER last oral dose * 1050 ($Given - Provider: Dusty Mcgee RN - Comment: Patient needs more water to swallowpills, waiting to complete ultrasound.) potassium chloride javi ER (KLOR-CON M20) CR tablet 40 mEq (COMPLETED) 40 mEq, Oral, ONCE, On 10/13/25 at 1830, For 1 dose, Potassium level 2.7 - 3 mmol/L Ordered from the Potassium replacement order set. DO NOT CRUSH, Potassium Replacement: Potassium level 2.7-3 mmol/L, Recheck: Potassium level 4 hours AFTER last oral dose * 1826 ($Given - Provider: Cole Weiss RN) potassium chloride javi ER (KLOR-CON M20) CR tablet 40 mEq (COMPLETED) 40 mEq, Oral, ONCE, On 10/14/25 at 0200, For 1 dose, Potassium level 3.1 - 3.4 mmol/L Ordered from the Potassium replacement order set. DO NOT CRUSH, Potassium Replacement: Potassium level 3.1-3.4 mmol/L, Recheck: Potassium level 4 hours AFTER last oral dose * 0212 ($Given - Provider: Marvin Al, BELLA) sodium chloride (PF) 0.9% PF flush 3 mL 3 mL, Intracatheter, EVERY 8 HOURS, First dose on 10/13/25 at 0310, to lock peripheral IV dormant line * 0331 ($Given - Provider: Rosanna Hill, BELLA) * 1218 ($Given - Provider: Dusty Mcgee RN) * 1827 ($Given - Provider: Cole Weiss RN) * 0310 (Canceled Entry - Provider: Marvin Al, BELLA - Comment: Flushed at 0000) * 1154 ($Given - Provider: Pio Hollins, BELLA) sodium chloride 0.9 % bag for CT scan flush (COMPLETED) Intravenous, 65 mL, ONCE, On 10/13/25 at 0135, For 1 dose, This entry is for use by Radiology to intermittently used as a flush in patients receiving a CT scan. * 0134 ($Given - Provider: STEPAN Mayer) spironolactone (ALDACTONE) tablet 50 mg 50 mg, Oral, DAILY, First dose on 10/13/25 at 1330 * 1415 ($Given - Provider: Mariela Marcus RN) * 0856 ($Given - Provider: Pio Hollins, BELLA) Medication Order artificial saliva (BIOTENE MT) solution 1 spray 1 spray, Mouth/Throat, 4 TIMES DAILY PRN, dry mouth, Starting on 10/13/25 at 0306 benzocaine-menthol (CHLORASEPTIC) 6-10 MG lozenge 1 lozenge 1 lozenge, Buccal, EVERY 1 HOUR PRN, sore throat, without fever, Starting on 10/13/25 at 0306 calcium carbonate (TUMS) chewable tablet 1,000 mg 1,000 mg, Oral, 2 TIMES DAILY PRN, heartburn, Starting on 10/13/25 at 0306 * 1319 ($Given - Provider: Pio Hollins, BELLA) diphenhydrAMINE (BENADRYL) capsule 25 mg 25 mg, Oral, EVERY 6 HOURS PRN, itching, Starting on 10/13/25 at 1012 * 1101 ($Given - Provider: Dusty Mcgee RN) * 2006 ($Given - Provider: Cole Weiss RN) * 0907 ($Given - Provider: Pio Hollins, BELLA) lidocaine (LMX4) cream Topical, EVERY 1 HOUR PRN, pain, with VAD insertion, Starting on 10/13/25 at 0306, Apply at least 30 minutes prior to VAD insertion in divided doses as needed for size of site for insertion. MAX Dose: 2.5 g (?? of 5 g tube) Do NOT give if patient has a history of allergy to any local anestheticor any farrah product. Do NOT use both lidocaine intradermal/subcutaneous injection and the lidocaine cream on the same site. lidocaine 1 % 0.1-1 mL 0.1-1 mL, Other, EVERY 1 HOUR PRN, mild pain with VAD insertion, Starting on 10/13/25 at 0306, MAX dose 1 mL subcutaneous OR intradermal along the side of the vein in divided doses as needed for VAD insertion. Do NOT give if patient has a history of allergy to any local anesthetic or any farrah product. Do NOT use both lidocaine intradermal/subcutaneous injection and the lidocaine cream on the same site. menthol-zinc oxide (CALMOSEPTINE) 0.44-20.6 % ointment OINT Topical, 4 TIMES DAILY PRN, skin protection, Starting on 10/13/25 at 0306, Apply pea-size amount for skin irritation. miconazole (MICATIN) 2 % cream Topical, 2 TIMES DAILY PRN, other, fungal rash, Starting on 10/13/25 at 0306, Apply to: affected area miconazole (MICATIN) 2 % powder Topical, 2 TIMES DAILY PRN, other, candidiasis/intertrigo, Starting on 10/13/25 at 0306, To skin folds ondansetron (ZOFRAN ODT) ODT tab 4 mg(Linked Group 1) 4 mg, Oral, EVERY 6 HOURS PRN, nausea/vomiting - 1st line, Starting on 10/13/25 at 0306, This is Step 1 of nausea and vomiting management. If nausea not resolved in 15 minutes, go to Step 2 prochlorperazine (COMPAZINE). With dry hands, peel back foil backing and gently remove tablet. Do not push oral disintegrating tablet through foil backing. Administer immediately on tongue and oral disintegrating tablet dissolves in seconds, then swallow with saliva. Liquid not required. ondansetron (ZOFRAN) injection 4 mg(Linked Group 1) 4 mg, Intravenous, EVERY 6 HOURS PRN, nausea/vomiting - 1st line, Administer over 2-5 Minutes, Starting on 10/13/25 at 0306, Give IF patient unable to tolerate oral medication. This is Step 1 of nausea and vomiting management. If nausea not resolved in 15 minutes, go to Step 2 prochlorperazine (COMPAZINE). polyethylene glycol (MIRALAX) Packet 17 g 17 g, Oral, 2 TIMES DAILY PRN, constipation, Starting on 10/13/25 at 1656, 1 Packet = 17 grams.Mix each gram with at least 1/2 ounce (15 mL) of water - 8 ounces for 17 g dose, 4 ounces for 8.5 gdose, 2 ounces for 4 g dose. Follow with the same volume of water. Hold for loose stools unless being administered as part of a bowel prep regimen or bowel clean out. * 1827 ($Given - Provider: Cole Weiss RN) sodium chloride (PF) 0.9% PF flush 3 mL 3 mL, Intracatheter, EVERY 1 MIN PRN, line flush, other, to ensure patency or to lock dormant line,Starting on 10/13/25 at 0306 * 0001 ($Given - Provider: Marvin Al, RN) Order Group 1: ondansetron (ZOFRAN ODT) ODT tab 4 mgJump to med 4 mg, Oral, EVERY 6 HOURS PRN, nausea/vomiting - 1st line, Starting on 10/13/25 at 0306, This is Step 1 of nausea and vomiting management. If nausea not resolved in 15 minutes, go to Step 2 prochlorperazine (COMPAZINE). With dry hands, peel back foil backing and gently remove tablet. Do not push oral disintegrating tablet through foil backing. Administer immediately on tongue and oral disintegrating tablet dissolves in seconds, then swallow with saliva. Liquid not required. Or ondansetron (ZOFRAN) injection 4 mgJump to med 4 mg, Intravenous, EVERY 6 HOURS PRN, nausea/vomiting - 1st line, Administer over 2-5 Minutes, Starting on 10/13/25 at 0306, Give IF patient unable to tolerate oral medication. This is Step 1 of nausea and vomiting management. If nausea not resolved in 15 minutes, go to Step 2 prochlorperazine (COMPAZINE). documented in this encounter Additional Health Concerns AssessmentNoted TimePHQ-9 Depression Total Score: 1:50 PM SENIOR ENERGY CONSULTANT documented as of this encounter Care Teams Team MemberRelationshipSpecialtyStart DateEnd Date No Ref-Primary, Physician PCP - [facility]05/28/23 [facility] [id number] [place] [id number] PCP02/09/18 Abi Mcclellan MD [address] [place] [address] Assigned PCP09/09/25documented as of this encounter
--- OUTSIDE RECORDS SUMMARY | 2025-10-15 22:42 | XMS_ITS | Encounter Summary ---
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 [facility] [address] [place] [phone] Discharge Disposition: Home or Self Care Social History Tobacco UseTypesPacks/DayYears UsedDateSmoking Tobacco: JblwnnUatzhasjeb9Iiab: 05/06/1997Smokeless Tobacco: CurrentChewAlcohol UseStandard Drinks/WeekComments No0 (1 standard drink = 0.6 oz pure alcohol)Quit January 01, 2017AUDIT-CAnswerDate RecordedQ1: How often do you have a drink containing alcohol?Never10/13/2025 Average Number of DrinksNot on file10/13/2025Frequency of Binge DrinkingNot on file10/13/2025PHQ-2AnswerDate RecordedPHQ-2 Obfet32111/07/2024dolescent Education AnswerDate RecordedGetting School Help NeededNot on file10/15/2023Food InsecurityAnswerDate RecordedWithin the past 12 months, did [...] in an abandoned building, in an overnight halfway, or couch-surfing.)Yes10/15/2025re you worried about losing your [...] ValueDate RecordedSex Assigned at BirthNot on fileLegal CrpGpln12/04/2012 3:21 AM CSTGender IdentityNot on fileSexual OrientationNot on filedocumented as of this encounter Last Filed Vital Signs Vital SignReadingTime TakenCommentsBlood Yanqpdwg225/6610/15/2025 8:13 PM AIRBORNE OPERATIONS SUPERINTENDENT Fitus899910/15/2025 8:13 PM QAJFktngwwotxc40.6 ??C (97.8 ??F)10/15/2025 8:13 PM CSTRespiratory Acbn8547 8:13 PM CSTOxygen Bsoynpkvpr31%10/15/2025 8:13 PM CSTInhaled Oxygen Concentration--Weight--Height--Body Mass Index--documented in this encounter Functional Status * Calculated C-SSRS Risk Score (Lifetime/Recent)AnswerDate of AssessmentAuthorNo Risk Moquyfemj10/29/2025 8:17 PM Beth Rivera RN * [place] Suicide Severity Rating Scale (Screener/Recent Self-Report)Question AnswerDate of AssessmentAuthor1. Wish to be (Past 1 Month)No10/15/2025 8:17 PM Beht Rivera RN2. Non-Specific Active Suicidal Thoughts (Past 1 Month)No10/15/2025 8:17 PM Beth Rivera RN6. Suicidal Behavior (Lifetime)No10/15/2025 8:17 PM Beth Rivera RN documented as of this encounter Medications at Time of Discharge MedicationSigDispense QuantityRefillsLast FilledStart DateEnd Date cholestyramine (QUESTRAN) 4 g packet Indications:Jaundice,ItchingTake 1 packet (4 g) by mouth 2 times daily. 60 packet / diphenhydrAMINE (BENADRYL) 25 MG capsule Indications:Jaundice,ItchingTake 1 capsule (25 mg) by mouth every 6 hours as needed for itching. 30 capsule 10/14/2025 furosemide (LASIX) 20 MG tablet Indications:Alcoholic cirrhosis of liver with ascites (H)Take 2 tablets (40 mg) by mouth daily. 60 tablet jyrqkzsx-vvpaozdfy-pyyASFUEudosu (MAXITROL) 0.1 % ophthalmic suspension Indications:Acute bacterial conjunctivitis of both eyesPlease instill 1-2 drops into both eyes 4 times daily for 7 days 10 mL 09/28/2023 spironolactone (ALDACTONE) 50 MG tablet Indications:Alcoholic cirrhosis of liver with ascites (H)Take 1 tablet (50 mg) by mouth daily. 30 tablet documented as of this encounter ED Notes * Beth Hernandez RN - 10/15/2025 8:15 PM CST Pt was admitted on 10/12 for liver cirrhosis- discharged with questran and spironolactone. C/o abdominal cramping for the last day. Denies any fullness or distention. C/o diarrhea. Denies fever, SOB,CP. Triage Assessment Row Name 10/15/252014 Triage Assessment Airway WDL WDL Respiratory WDL Respiratory WDL WDL Cardiac WDL Cardiac WDL WDL Cognitive/Neuro/Behavioral WDL Cognitive/Neuro/Behavioral WDL WDL [employer]NE OPERATIONS SUPERINTENDENT documented in this encounter Plan of Treatment DateTypeDepartmentCare Team (Latest Contact Info)Pjyiqbgrqzj56/06/2026 1:30 PM CSTOffice Visit [facility] [address] [place] [phone] Abi Mcclellan MD [address], [place] [phone] 11/22/2025 8:30 AM CSTVirtual Visit [facility] [address] [phone] Jillian Reeves [facility] [address] [place], [place] [phone] 11/22/2025 9:00 AM CSTVirtual Visit [facility] [address] [phone] Abi Mcclellan MD [address], [place] [phone] Elisa Colon DO [address] [place], [place] [phone] documented as of this encounter Visit Diagnoses Not on filedocumented in this encounter Additional Health Concerns AssessmentNoted TimePHQ-9 Depression Total Score: 1:50 PM [employer] OPERATIONS SUPERINTENDENT documented as of this encounter Care Teams Team MemberRelationshipSpecialtyStart DateEnd Date No Ref-Primary, Physician PCP - General05/28/23 [facility] [address] [place] [address] PCP02/09/18 Abi Mcclellan MD [address], [place] [phone] Assigned PCP09/09/25documented as of this encounter
[2025-10-16 00:38] VITALS: BP 123/79; PULSE 95; RESP 18; TEMP 37.3; O2SAT 97; BMI 34.0
--- NOTE | 2025-10-16 01:44 | ED_ITS ---
HPI - General Adult General Chief complaint: Unspecified Complaint, Adult Stated complaint: muscle cramping whole body Time Seen by Provider: 10/16/25 01:30 Source: patient Mode of arrival: ambulatory Limitations: no limitations History of Present Illness HPI narrative: 52-year-old male presents to the emergency department for evaluation of muscle cramping. Patient has a history of chronic liver disease. He gets his care through the [facility] system. He did present to their ED today but was frustrated with the long wait and presents newly as a new patient in the wee hours to our ED with limited records. He is able to pull up his discharge summary for me and that is quite helpful. Patient with history of cirrhosis or more than 8 years. Was previously heavy alcohol user but no alcohol in the last 8 years. He underwent paracentesis on the , had 1.5 L removed. Had less abdominal swelling after that. He presented back to the [facility] ED and was admitted 10/12 through 10/14 for management of his liver disease. It sounds like he was having increased itching from his liver disease and was started on Benadryl which he has found very helpful. Unfortunately, now he is having significant muscle cramping. This is been starting since his discharge on Wednesday and is worsening. He reports that the moment it is a little bit better. He was started on furosemide 40 mg once daily, he thinks this does must be too high as he had previously been on only 10 mg. Of note, he did have fluid reaccumulating but it sounds like he had been off of the medication for quite some time. He was also started on spironolactone. He reports that he has been taking these medications. He wants to know what to do about his cramping. He denies any fevers. You no stool changes, no new injury or trauma. He states that they yellow color that I am seeing is pretty typical for him. Reports that his bilirubin was 22 on hospitalization and was 14 at discharge. I do not have a baseline to compare this to otherwise. He has a new primary care appointment set up for next week. He denies any fevers, low-grade fever noted in triage. Denies abdominal pain. Past medical history notable for cirrhosis, chronic jaundice, no longer using any alcohol. Home meds are spironolactone, Lasix, diphenhydramine. ROS is notable for the diffuse muscle cramping, otherwise denies times 12 systems. Discharge summary is reviewed from patient's MyChart Exam Const: Vital Signs, click to edit/add: Vital Signs - 24 hr 10/16/25 00:38 Temperature 99.1 F Pulse Rate [Pulse Oximeter] 95 Respiratory Rate 18 Blood Pressure [Ri ght Upper Arm] 123/79 Pulse Oximetry 97 Oxygen Delivery Me thod Room Air Documenting provider has reviewed patient's vital signs: yes Common normals: no apparent distress and alert General appearance: well kempt Other: He is a little irritable but redirectable. Yellow color to entire complexion. Mentation seems intact. HENMT: Common normals: normocephalic, moist oral mucous membranes and oropharynx normal Head and scalp: normocephalic Face and sinus: normal facial exam Mouth: oral and palatal mucosa normal Eye: Common normals: EOMs intact bilaterally Other: Significant icterus Neck & C-Spine: Common normals: full ROM and no lymphadenopathy General: normal visual inspection Resp: Common normals: normal respiratory effort, no use of accessory muscles and clear to auscultation bilaterally Effort & inspection: able to speak in complete sentences Auscultation: clear to auscultation bilaterally Cardio: Common normals: regular rate and regular rhythm Rate: regular rate Rhythm: regular rhythm Other: 3/6 systolic ejection murmur Extremity: Common normals: normal capillary refill Other: 1+ edema to the lower tibia, symmetric b ilaterally Neuro: Common normals: moves all extremities Sensorium/orientation: alert Psych: Appearance: well kempt Attitude: engaged Activity/motor behavior: appropriate eye contact Insight: insight good Judgement: judgment good Skin: Narrative: Other than jaundice, skin appears relatively normal. No signs of bruising, lacerations, recent trauma. Course Course ED Course: 60-year-old male with muscle cramps after newly starting spironolactone and furosemide, underlying liver disease. I suspect that this is side effect from his diuretics. Will obtain typical labs including liver panel, metabolic panel, magnesium level, CBC, flu swab to look for alternate etiology. Patient does not have a true fever nor signs abdominal tenderness, I do not think that this is a complication from his paracentesis. I do not have a good baseline weight on him. Counseled patient to be patient with us as the ED is quite busy overnight and I will need some time to track down the remainder of his records and potentially consult specialists regarding his care plan. He seemed frustrated by this but verbalizes understanding. Reevaluation(s) Time of Reevaluation #1: 02:45 Reevaluation #1: Counseled patient on lab findings. Liver function, bilirubin are stable. His symptoms continue to improve and he is sleeping in the room when I come in to re assess. We discussed side effects of diuretics. He tells me that he has lost 10 additional lb since hospital discharge. This is great news. Labs do not reflect any dehydration or electrolyte abnormality. Counseled patient that the side effects on the diuretics are fairly common and do often improve in time. The fluid shifts can cause a lot of cramps. I would like for him to temporarily for the next 5 days go down by half on both of the medications but it is important that he is tracking his weight. We discussed that typically the urination will be worse for about 4 hours after taking the medication in the muscle cramps started about an hour after taking the medicine and can last 4-6 hours. He should plan accordingly based on his day to determine what time this is most palatable. I have also recommended a short-term muscle relaxer, cyclobenzaprine to take a half of a pill to 1 full pill once daily if the muscle cramps are severe. Overall I let him know that this is temporary and showed improvement time. After the 5 days on the reduced dose of the medication, he should go back to his regular dose and then follow-up a few days later with his primary care doc. They will use this in conjunction with his weights log to determine what the best long-term dose of the diuretics will be for the patient. He verbalizes understanding and agreement. Alarm symptoms reviewed that would warrant ED re-evaluation. Vital Signs Vital signs: Initial Vital Signs Temperature 99.1 F 10/16/25 00:38 Temperature Source Temporal Artery Scan 10/16/25 00:38 Pulse Rate 95 10/16/25 00:38 Respiratory Rate 18 10/16/25 00:38 Blood Pressure 123/79 10/16/25 00:38 Blood Pressure Mean 93 10/16/25 00:38 Blood Pressure Position Sitting 10/16/25 00:38 Pulse Oximetry 97 10/16/25 00:38 Oxygen Delivery Method Room Air 12/30/25 00:38 Vital Signs Temperature 99.1 F 10/16/25 00:38 Pulse Rate 95 10/16/25 00:38 Respiratory Rate 18 10/16/25 00:38 Blood Pressure 123/79 10/16/25 00:38 Pulse Oximetry 97 10/16/25 00:38 Oxygen Delivery Method Room Air 10/16/25 00:38 Temperature 99.1 F 10/16/25 00:38 Pulse Rate 95 10/16/25 00:38 Respiratory Rate 18 10/16/25 00:38 Blood Pressure 123/79 10/16/25 00:38 Pulse Oximetry 97 10/16/25 00:38 Oxygen Delivery Method Room Air 10/16/25 00:38 Medical Decision Making Lab Data Lab results reviewed: Yes I reviewed the patient's lab results Lab results narrative: Labs are stable for patient. His liver enzymes, bilirubin are typical for him. No signs of alcohol intoxication, influenza or electrolyte abnormalities. Overall reassuring. Labs: Lab Results 10/16/25 Range/Units 01:49 WBC 6.41 (4.50-11.00) K/uL RBC 3.90 L (4.30-5.90) m/uL Hgb 9.1 L (13.5-17.5) gm/dL Hct 30.5 L (37.0-53.0) % MCV 78 L (80-100) fL MCH 23 L (26-34) pg MCHC 30 L (32-36) gm/dL RDW Coeff of Donnie 22.3 H (11.5-15.5) % Plt Count 100 L (140-440) K/uL Neut % (Auto) 68.8 (42.0-72.0) % Lymph % (Auto) 14.4 L (20-44) % Tift % (Auto) 9.7 (0.0-11.0) % Eos % (Auto) 6.4 (0.0-7.0) % Baso % (Auto) 0.5 (0.0-3.0) % Neut # (Auto) 4.42 (1.7-7.0) K/uL Lymph # (Auto) 0.90 (0.90-2.90) K/uL Tift # (Auto) 0.60 (0.00-0.90) K/UL Eos # (Auto) 0.41 (0.00-0.50) K/uL Baso # (Auto) 0.03 (0.00-0.30) K/uL Abs Immat Gran (auto) 0.01 (0.00-0.30) K/uL Imm/Tot Granulo (auto) 0.2 % Sodium 132 L (135-149) mmol/L Potassium 3.6 (3.6-5.1) mmol/L Chloride 96 (96-114) mmol/L Carbon Dioxide 28 (20-32) mmol/L Anion Gap 8 (7-15) mEq/L BUN 20 (7-30) mg/dL Creatinine 1.2 (0.5-1.5) mg/dL Estimated Creat Clear 69.28 Estimated GFR 70 ml/min Glucose 103 (60-115) mg/dL Lactate 1.7 (0.5-1.9) mmol/L Calcium 8.0 L (8.4-10.6) mg/dL Magnesium 1.6 (1.5-2.6) mg/dL Total Bilirubin 13.9 H (0.1-1.5) mg/dL Direct Bilirubin 12.0 H (0.0-0.5) mg/dL AST 169 H (12-35) U/L ALT 84 H (4-50) U/L Alkaline Phosphatase 333 H (40-150) U/L Total Protein 7.7 (6.0-8.3) g/dL Albumin 2.9 L (3.3-5.0) g/dL Ethyl Alcohol < 0.01 (0.01-0.03) % SARS-CoV-2 (PCR) Negative SARS-CoV-2 (Negative) Influenza Type A (PCR) Negative PCR FLU A (Negative) Influenza Type B (PCR) Negative PCR FLU B (Negative) RSV (PCR) Negative PCR RSV (Negative) Discharge Plan Discharge Clinical Impression: Medication side effects, Muscle cramp Patient Disposition: Home, Self-Care Condition: Improved Instructions: Leg Cramps (ED) Additional Instructions: Unfortunately, cramping is a very common side effects of the new water pills that you are taking. I am very encouraged to hear that you have gotten 10 lb of fluid off in the last 3 days. This is a very good sign. We need the water pills to help keep the fluid from accumulating in your abdomen. It is important you are weighing yourself every day and writing down these values to bring to your follow-up appointment. There are no signs of electrolyte abnormalities or worsening of your liver today. Your bilirubin today is 13.9, this is stable. It is important that you do not abruptly quit these water pills. They are very important at keeping the fluid off of your abdomen, heart and lungs. Because you have had such a good movement of the fluid, I recommend that we decrease her water pill by half. For your spironolactone 50 mg, you will take a half of a pill once daily. For your furosemide, you will take 1 pill instead of 2. It is still important that you are taking this every day. Remember that after taking them, you will have lots of urination for about 4 hours. The cramps will be most bothersome starting about an hour after the medication until about 4 hours after. Please plan your day accordingly. Remember that once we get most of this fluid off of you, these fluid shifts will not be as extreme and you will not have as much cramping. You will only take the reduced doses of the medication for 5 days and then you will go back to your normal dose. Then, you will keep your planned follow-up appointment with your new primary care doctor to recheck labs, wait and see how things are going. Together, you guys will decide which dose is right for you long-term. I do think that in time you will get use to the medication and the side effects will not be as severe. In the meantime, I have given you a prescription for a muscle relaxant, cyclobenzaprine. Use a half to 1 pill once daily but remember it will make you quite sleepy. Plan accordingly. No operating heavy machinery for 8 hours after taking the cyclobenzaprine. Activity Level: Activity as Tolerated Discharge Diet: Regular Follow Up/Referrals: Provider,Not a Local [Primary Care Provider, Family Practice] Stand Alone Forms: MADS Info Instructions
[2025-10-16 01:56] LABS: Lactate Sepsis w/Reflex* 1.7 mmol/L (0.5-1.9)
[2025-10-16 01:58] LABS: Hematocrit* 30.5 % (37.0-53.0); Hemoglobin* 9.1 gm/dL (13.5-17.5); Immature Granulocytes Abs Auto 0.01 K/uL (0.00-0.30); Immature Granulocytes Pct Auto 0.2 %; Mean Corpuscular HGB Conc 30 gm/dL (32-36); Mean Corpuscular Hemoglobin 23 pg (26-34); Mean Corpuscular Volume 78 fL (80-100); RDW Coefficient of Variation % 22.3 % (11.5-15.5); Red Blood Count* 3.90 m/uL (4.30-5.90); White Blood Count* 6.41 K/uL (4.50-11.00)
[2025-10-16 02:00] LABS: Lymphocytes Absolute Auto 0.90 K/uL (0.90-2.90); Slide Review Reflex No
--- OUTSIDE RECORDS SUMMARY | 2025-10-16 02:09 | XMS_ITS | Encounter Summary ---
Author Organization [place] Address [facility] [place] [address] Care Team Providers Care Account Advisor Name Role Phone [facility] Unavailable No Ref-Primary, Physician Primary Care Provider Abi Mcclellan MD Unavailable Reason for Visit * ReasonOnset DateCommentsClinic Care Coordination - Fuwpsze5310/12/2025 Encounter Details DateTypeDepartmentCare Team (Latest Contact Info)Tnrzcdhjdpr58/26/2025Telephone [facility] [address] [place] [address] Abi Mcclellan MD [address] [place] [address] Clinic Care Coordination - Initial Social History Tobacco UseTypesPacks/DayYears UsedDateSmoking Tobacco: VpvnwzGqtvsggkaz9Xvjk: 05/06/1997Smokeless Tobacco: CurrentChewAlcohol UseStandard Drinks/WeekComments No0 (1 standard drink = 0.6 oz pure alcohol)Quit January 01, 2017AUDIT-CAnswerDate RecordedQ1: How often do you have a drink containing alcohol?Never10/13/2025 Average Number of DrinksNot on file10/13/2025Frequency of Binge DrinkingNot on file10/13/2025PHQ-2AnswerDate RecordedPHQ-2 Cavbw76111/07/2024dolescent Education AnswerDate RecordedGetting School Help NeededNot on [...] abandoned building, in an overnight assisted, or couch-surfing.)Yes10/15/2025re you worried about losing your [...] ValueDate RecordedSex Assigned at BirthNot on fileLegal WaqNzbm98/04/2012 3:21 AM CSTGender IdentityNot on fileSexual OrientationNot on filedocumented as of this encounter Miscellaneous Notes * Telephone Encounter - Bella Schmitt - 10/12/2025 9:56 AM CST Patient is calling to ask if he can get help with his health care regarding his liver. He says he had someone help him last time and that person scheduled his appointments and told him where to go for this appointments. He had a hard time verbalizing exactly what he was asking for but most likely he is asking for care coordination. Y OPERATOR documented in this encounter Plan of Treatment DateTypeDepartmentCare Team (Latest Contact Info)Lkivmgzrlms59/06/2026 1:30 PM CSTOffice Visit [facility] [address] [place] [address] Abi Mcclellan MD [address] [place] [address] 11/22/2025 8:30 AM CSTVirtual Visit [facility] & Addiction [address] [address] Jillian Reeves [facility] [address] [place], [place] [phone] 11/22/2025 9:00 AM CSTVirtual Visit [facility] Health & Addiction [address] [phone] Abi Mcclellan MD [address] [place], [place] [address] Elisa Colon DO [address] [place], [place] [address] documented as of this encounter Visit Diagnoses Not on filedocumented in this encounter Additional Health Concerns AssessmentNoted TimePHQ-9 Depression Total Score: 1:50 PM DOLLY OPERATOR documented as of this encounter Care Teams Team MemberRelationshipSpecialtyStart DateEnd Date No Ref-Primary, Physician PCP - General05/28/23 [facility] [address] [place] [address] PCP02/09/18 Abi Mcclellan MD [address] [place], [place] [address] Assigned PCP09/09/25documented as of this encounter
--- OUTSIDE RECORDS SUMMARY | 2025-10-16 02:10 | XMS_ITS | Encounter Summary ---
Author Organization [place] Address [facility] [place] [address] Care Team Providers Care Cold Rolling Machine Setter Name Role Phone [facility], [facility] Unavailable [phone] No Ref-Primary, Physician Primary Care Provider Abi Mcclellan MD Unavailable Reason for Visit * ReasonOnset DateCommentsRefill Adgrisl1010/08/2025 Encounter Details DateTypeDepartmentCare Team (Latest Contact Info)Hlwgxjxlahx16/22/2025[address] [place] [address] No Ref-Primary, Physician Refill Request Social History Tobacco UseTypesPacks/DayYears UsedDateSmoking Tobacco: ItszcnPilaobdnis4Lhqk: 05/06/1997Smokeless Tobacco: CurrentChewAlcohol UseStandard Drinks/WeekComments No0 (1 standard drink = 0.6 oz pure alcohol)Quit January 01, 2017PHQ-2AnswerDate RecordedPHQ-2 Fzfqt77111/07/2024dolescent EducationAnswerDate RecordedGetting School Help NeededNot on file08/01/2023Food [...] in an abandoned building, in an overnight nursing home, or couch-surfing.)Yes08/26/2023 Are you worried about [...] InformationValueDate RecordedSex Assigned at BirthNot on fileLegal PtxHmzr67/04/2012 3:21 AM CSTGender IdentityNot on file Sexual OrientationNot on filedocumented as of this encounter Miscellaneous Notes * Telephone Encounter - Ami Marcelino RN - 10/08/2025 3:13 PM CST Call to patient who states he is not needing a refill. Then patient says he needs a refill stating he has been using them for the past month. Starch Mangle Tender asked why he started taking them again. Patient reports he is having dry eyes and yellow goop. Starch Mangle Tender wanted to get more info, but patient denied triage. Advised patient to submit evisit to discuss refill. Evisit link sent to patient. Thank you, Pollo, hangar attendantBELLA Wilson 3:16 PM 10/08/2025 LE BOARD REPAIRER * Telephone Encounter - Ami Marcelino RN - 10/08/2025 1:50 PM CST Clinic RN: Please investigate patient's chart or contact patient if the information cannot be foundbecause this medication was prescribed for an acute condition. Confirm current symptoms/need for medication and possible need for appointment. If necessary, document reason and route refill encounterto provider for approval or denial. Ami Marcelino RN on 10/08/2025 at 1:50 PM LE BOARD REPAIRER * Telephone Encounter - Alexa Rodriguez RN - 10/08/2025 1:42 PM CST Patient calls requesting refill for eye drops LILO 09/07/25 Routing onto refill team LE BOARD REPAIRER documented in this encounter Plan of Treatment DateTypeDepartmentCare Team (Latest Contact Info)Ijuapeicksh99/06/2026 1:30 PM CSTOffice Visit [facility] [address] [place] [phone] Abi Mcclellan MD [address] [place] [address] 11/22/2025 8:30 AM CSTVirtual Visit [facility] Health & Addiction [address] [place] [address] Jillian Reeves [facility] [address] [place] [address] 11/22/2025 9:00 AM CSTVirtual Visit [facility] & [facility] [address] [place] [phone] Abi Mcclellan MD [address] [place] [address] Elisa Colon DO [address] [place], [place] [address] documented as of this encounter Visit Diagnoses Diagnosis Acute bacterial conjunctivitis of both eyes documented in this encounter Additional Health Concerns AssessmentNoted TimePHQ-9 Depression Total Score: 1:50 PM NEEDLE BOARD REPAIRER documented as of this encounter Care Teams Team MemberRelationshipSpecialtyStart DateEnd Date No Ref-Primary, Physician PCP - General05/28/[address] [id number] PCP02/09/18 Abi Mcclellan MD [address] [place], [place] [address] Assigned PCP09/09/25documented as of this encounter
--- OUTSIDE RECORDS SUMMARY | 2025-10-16 02:10 | XMS_ITS | Encounter Summary ---
Author Organization [place] Address [address] [place] [address] Care Team Providers Care Crate Builder Name Role Phone Clinic, [facility] Unavailable [phone] No Ref-Primary, Physician Primary Care Provider Abi Mcclellan MD Unavailable Encounter Details DateTypeDepartmentCare Team (Latest Contact Info)Gkodiaunflo41/26/2025Travel Social History Tobacco UseTypesPacks/DayYears UsedDateSmoking Tobacco: UfkahhDbvvtdsshx7Fohe: 05/06/1997Smokeless Tobacco: CurrentChewAlcohol UseStandard Drinks/WeekComments No0 (1 standard drink = 0.6 oz pure alcohol)Quit January 01, 2017AUDIT-CAnswerDate RecordedQ1: How often do you have a drink containing alcohol?Never10/13/2025 Average Number of DrinksNot on file10/13/2025Frequency of Binge DrinkingNot on file10/13/2025PHQ-2AnswerDate RecordedPHQ-2 Zjnqu02511/07/2024dolescent Education AnswerDate RecordedGetting School Help NeededNot on file08/01/2023Food InsecurityAnswerDate RecordedWithin the past 12 months, did you worry that your food would run out before you got money to buy more?Yes10/13/2025Within the past 12 months, did the food you bought just not last and you didn???t have money to getmore?No10/13/2025Housing StabilityAnswerDate RecordedDo you have housing? (Housing is defined as stable permanent housing and does not include staying ou tside in a car, in a tent, in an abandoned building, in an overnight residential, or couch-surfing.)Yes10/13/2025re you worried about losing your housing?Yes 10/13/2025Financial Resource StrainAnswerDate RecordedWithin the past 12 months, have you or your family members you live with been unable to get utilities (heat, electricity) when it was really needed?Yes10/13/2025Transportation Needs AnswerDate RecordedWithin the past 12 months, has lack of transportation kept you from medical appointments, getting your medicines, non-medical meetings or appointments, work, or from getting things that you need?Yes10/13/2025 Interpersonal SafetyAnswerDate RecordedDo you feel physically and emotionally safe where you currently live?Yes10/13/2025Within the past 12 months, have you been hit, slapped, kicked or otherwise physically hurt by someone?No10/13/2025 Within the past 12 months, have you been humiliated or emotionally abused in other ways by your partner or ex-partner?No10/13/2025Sex and Gender Information ValueDate RecordedSex Assigned at BirthNot on fileLegal VzwHjhu69/04/2012 3:21 AM CSTGender IdentityNot on fileSexual OrientationNot on filedocumented as of this encounter Plan of Treatment DateTypeDepartmentCare Team (Latest Contact Info)Isbdaukpvxe60/06/2026 1:[address] [facility] [address] [place] [phone] Abi Mcclellan MD [address] [place], [place] [address] 11/22/2025 8:30 AM CSTVirtual Visit [facility] Mental Health & Addiction [address] [place] [address] Jillian Reeves [facility] [address] [place] [address] 11/22/2025 9:00 AM CSTVirtual Visit [facility] Mental Health & Addiction [place] [address] [place] [phone] Abi Mcclellan MD [address] [place], [place] [address] Elisa Colon DO [address] [place], [place] [phone] documented as of this encounter Visit Diagnoses Not on filedocumented in this encounter Additional Health Concerns AssessmentNoted TimePHQ-9 Depression Total Score: 7111/07/2024 1:50 PM PANTOGRAPH ENGRAVER documented as of this encounter Care Teams Team MemberRelationshipSpecialtyStart DateEnd Date No Ref-Primary, Physician PCP - General05/28/23 [facility] [id number] [place] [id number] PCP02/09/18 Abi Mcclellan MD [address] [place], [place] [address] Assigned PCP09/09/25documented as of this encounter
--- OUTSIDE RECORDS SUMMARY | 2025-10-16 02:10 | XMS_ITS ---
Author Organization [place] Address [address] [place] [address] Care Team Providers Care Pulverizer Feeder Name Role Phone Clinic, [facility] Unavailable [phone] No Ref-Primary, Physician Primary Care Provider Abi Mcclellan MD Unavailable Transitional Care Management Status:Enrolled (Active) Start date:10/15/2025 Enrollment date:10/15/2025 NameMarcella Kelly RN(Responsible Staff)Clinic Physiognomist [phone] Continued Care and Services Coordination
--- OUTSIDE RECORDS SUMMARY | 2025-10-16 02:10 | XMS_ITS | Clinical Summary ---
Author Organization [facility] Address [address] [place] [address] Care Team Providers Care Deployment Specialist Name Role Phone Ayan Andrews APRN, CNP Primary Care Provid er Source Comments You are receiving this document as you are listed as the primary care provider,follow-up provider, or the patient has been referred to you for consultation.This is in compliance with the Medicare andMedicaid EHR Incentive Program,which states Providers who transition their patient to another setting of careor provider of care or refers their patient to another provider of care shouldprovide summary care record for each transition of care or referral. [facility] Allergies Active AllergyReactionsCriticalityNoted DateCommentsFish Protein-Containing Drug PsvvcpxoAhgvqrvqbupFmvx92/29/2013JipytimmbTiegkHgj90/11/2011PenicillinsHivesHigh 04/27/2011 Medications MedicationSigDispense QuantityRefillsLast FilledStart DateEnd DateStatus Multiple Vitamins-Minerals (THERA M PLUS) Take 1 Tablet by mouth.02/18/2017Active nicotine (NICODERMCQ) 14 MG/24HR patch Apply 1 Patch to skin . Daily for 2 weekActive lactulose (CEPHULAC) 10 GM/15ML solution Indications:Hepatic encephalopathy (HRC)Take 15 mL by mouth three times a day. 4050 mL Active Additional Information Patient not taking.Reported on 05/16/2023 pantoprazole (PROTONIX) 40 MG tablet Take 1 Tab by mouth daily. 30 Tab 08/03/2017Active Additional Information Patient not taking.Reported on 05/16/2023 spironolactone (ALDACTONE) 100 MG tablet Take 1 Tab by mouth daily. 30 Tab 08/02/2017Active Additional Information Patient not taking.Reported on 05/16/2023 pantoprazole (PROTONIX) 40 MG tablet Take 1 Tab by mouth daily. 30 Tab 08/02/2017Active Additional Information Patient not taking.Reported on 05/16/2023 furosemide (LASIX) 40 MG tablet Take 1 Tab by mouth daily. 30 Tab 08/02/2017Active rifAXIMin (XIFAXAN) 550 MG tablet Take 1 Tab by mouth two times a day. 60 Tab 08/02/2017Active Additional Information Patient not taking.Reported on 05/16/2023 Active Problems ProblemNoted DateDiagnosed DateAlcoholic qiyeliqdy02/18/2017Alcohol abuse 03/04/2017Alcohol withdrawal dpxkbtu1903/04/2017Pre-wrrbiuap11/04/2013 Pggnjwbjtitghg75/04/2013HTN (hypertension)08/16/2012 Family History Medical HistoryRelationNameCommentsDiabetesBirth FatherCancerBirth MotherHigh Blood PressureBrotherRelationNameStatusCommentsBirth FatherAliveBirth Mother DeceasedBrotherAlive Social History Tobacco UseTypesPacks/DayYears UsedDateSmoking Tobacco: NeverCigarettesSmokeless Tobacco: FormerChewAlcohol UseStandard Drinks/WeekCommentsNo0 (1 standard drink = 0.6 oz pure alcohol)stopped drinking January 012016Sex and Gender InformationValueDate RecordedSex Assigned at BirthNot on fileLegal SexMale 02/02/2015 3:31 AM CDTGender IdentityNot on fileSexual OrientationNot on file 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 DateJob 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 Dateconcrete contractingNot on fileNot on fileNot on file Last Filed Vital Signs Vital SignReadingTime TakenCommentsBlood Uzcgaqul949/8007 4:36 PM CDT Vorev94661 4:36 PM MEESyucpstisfv42.7 ??C (98 ??F)05/16/2023 4:36 PM CDT Respiratory Bpip334405/16/2023 4:36 PM CDTOxygen Hspmwupswb09%05/16/2023 4:36 PM CDTInhaled Oxygen Concentration--Akjodj80.2 kg (201 lb)04/09/2017 1:02 PM CDT Djlxgx852.5 cm (5' 9.5)02/25/2017 9:32 AM CDTBody Mass Index29.26002/25/2017 9:32 AM CDT Plan of Treatment Health MaintenanceDue DateLast DoneCommentsPSA Screening Vqdvqybfyd1967HIV Screening (Preventive Services)1983Adult Preventive Visit1985HepA Vaccine (1 of 2 - Risk 2-dose series)1986HepB Vaccine (1)1986 Pneumococcal Vaccine 50+ Yrs (1 of 2 - PCV)1986Zoster/Shingles Vaccine (1 of 2)05/25/20179182Btymjypmayi98Cholesterol, 09/18/2013COVID-19 Vaccine (1 - season)2025Influenza Vaccine (#1) 2025DTaP/Tdap/Td Vaccine (2 - Tdap)RSV Vaccine (1 - 1- dose 75+ series)2042Hep C Screening (Preventive Services)Completed 01/15/2016Hib VaccineAged OutNo longer eligible based on patient's age to complete this topicIPV (Polio) VaccineAged OutNo longer eligible based on patient's age to complete this topicMCV4 VaccineAged OutNo longer eligible based on patient's age to complete this topicMeningococcal B VaccineAged OutNo longer eligible based on patient's age to complete this topic Procedures Procedure NamePriorityDate/TimeAssociated DiagnosisCommentsENDOSCOPY, COLON, SCREENING/EHVXJREEBBRdpzlbc89/10/2017 8:41 AM GRIT REMOVAL OPERATOR Screening for colon cancer HEPATITIS C ANTIBODY, WITH REFLEX (ANTI-HCV)Kmckebk6701/15/2016 3:21 PM CDT Abnormal finding on CT scan LIPID PANEL & DIRECT LDL (IF NEEDED)Umhbixc6108/05/2015 10:53 AM CDT Hyperlipidemia from Last 3 Months or Most Recently Relevant to Health Maintenance Results * Colonoscopy (08/27/2017 8:41 AM GRIT REMOVAL OPERATOR)Anatomical RegionLateralityModalityOther Specimen (Source)Anatomical Location / LateralityCollection Method / Volume Collection TimeReceived Time08/27/2017 8:41 AM GRIT REMOVAL OPERATOR Narrative 08/27/2017 8:41 AM GRIT REMOVAL OPERATOR Patient Name: Richard Fonseca Procedure Date: 08/27/2017 8:41 AM Date of : 1965 Admit Type: Outpatient Age: 52 Note Status: Finalized Attending MD: Dania Pires MD Procedure: ? Colonoscopy Indications: ? Screening for colorectal malignant ? neoplasm, This is the patient's first ? colonoscopy Providers: ? Dania Pires MD, Bob Fox Referring MD: ?Ayan Andrews NP Medicines: ? Midazolam 3 mg IV, Fentanyl 150 ? micrograms IV Complications: ? No immediate complications. Estimated ? blood loss: None. Procedure: ? After I obtained informed consent, ? the scope was passed under direct ? vision. Throughout the procedure, the ? patient's blood pressure, pulse, and ? oxygen saturations were monitored ? continuously. The [id number] was ? introduced through the anus and ? advanced to the cecum, identified by ? appendiceal orifice and ileocecal ? valve. The colonoscopy was performed ? with difficulty due to significant ? looping and a tortuous colon. ? Successful completion of the ? procedure was aided by increasing the ? dose of sedation medication, changing ? the patient to a supine position and ? using manual pressure. The patient ? tolerated the procedure well. The ? quality of the bowel preparation was ? good except the ascending colon, ? cecum and rectum was poor. Findings: ? The perianal and digital rectal examinations were ? normal. ? A moderate amount of semi-solid stool was found in ? the rectum, in the ascending colon and in the cecum, ? interfering with visualization. This could not be ? effectively removed. ? The colon (entire examined portion) appeared normal. ? Retroflexion in rectum not accomplished due to amount ? of stool. Impression: ?- Stool in the rectum, in the ? ascending colon and in the cecum. ? - The entire examined colon is normal. Recommendation: ?- Repeat colonoscopy within 1 year ? for screening purposes due to the ? inadequate nature of today's laxative ? preparation. ? - Prepare with 2 days clear liquids, ? one bottle magnesium citrate 2 days ? before and Golytley preparation one ? day before examination. ? - Return to primary care physician ? PRN. Procedure Code(s): ?? --- Professional --- ? G0121, Colorectal cancer screening; ? colonoscopy on individual not meeting ? criteria for high risk Diagnosis Code(s): ?? --- Professional --- ? Z12.11, Encounter for screening for ? malignant neoplasm of colon CPT copyright 2016 [employer]. All rights reserved. The codes documented in this report are preliminary and upon administrative representative review may be revised to meet current compliance requirements. Dania Pires MD 08/27/2017 9:19:22 AM This document has been electronically signed. Number of Addenda: 0 Note Initiated On: 08/27/2017 8:41 AM ? Endoscopy Report Procedure Note Dania Pires MD - 08/27/2017 Patient Name: Richard Fonseca Procedure Date: 08/27/2017 8:41 AM Date of : 1965 Admit Type: Outpatient Age: 52 Note Status: Finalized Attending MD: Dania Pires MD Procedure: Colonoscopy Indications: Screening for colorectal malignant neoplasm, This is the patient's first colonoscopy Providers: Dania Pires MD, Bob Fox Referring MD: Ayan Andrews NP Medicines: Midazolam 3 mg IV, Fentanyl 150 micrograms IV Complications: No immediate complications. Estimated blood loss: None. Procedure: After I obtained informed consent, the scope was passed under direct vision. Throughout the procedure, the patient's blood pressure, pulse, and oxygen saturations were monitored continuously. The [id number] was introduced through the anus and advanced to the cecum, identified by appendiceal orifice and ileocecal valve. The colonoscopy was performed with difficulty due to significant looping and a tortuous colon. Successful completion of the procedure was aided by increasing the dose of sedation medication, changing the patient to a supine position and using manual pressure. The patient tolerated the procedure well. The quality of the bowel preparation was good except the ascending colon, cecum and rectum was poor. Findings: The perianal and digital rectal examinations were normal. A moderate amount of semi-solid stool was found in the rectum, in the ascending colon and in the cecum, interfering with visualization. This could not be effectively removed. The colon (entire examined portion) appeared normal. Retroflexion in rectum not accomplished due to amount of stool. Impression: - Stool in the rectum, in the ascending colon and in the cecum. - The entire examined colon is normal. Recommendation: - Repeat colonoscopy within 1 year for screening purposes due to the inadequate nature of today's laxative preparation. - Prepare with 2 days clear liquids, one bottle magnesium citrate 2 days before and Golytley preparation one day before examination. - Return to primary care physician PRN. Procedure Code(s): --- Professional --- G0121, Colorectal cancer screening; colonoscopy on individual not meeting criteria for high risk Diagnosis Code(s): --- Professional --- Z12.11, Encounter for screening for malignant neoplasm of colon CPT copyright 2016 [employer]. All rights reserved. The codes documented in this report are preliminary and upon administrative representative review may be revised to meet current compliance requirements. Dania Pires MD 08/27/2017 9:19:22 AM This document has been electronically signed. Number of Addenda: 0 Note Initiated On: 08/27/2017 8:41 AM Endoscopy Report Authorizing ProviderResult TypeResult StatusClinton KAREN Paula APRN GI PROCEDURE ORDERABLESFinal Result * Hepatitis C Antibody, with Reflex (01/15/2016 3:21 PM CDT)ComponentValueRef RangeTest MethodAnalysis TimePerformed AtPathologist SignatureHepatitis C AntibodyNonreactiveNon-ReactiveHP CONVERSIONSpecimen (Source)Anatomical Location / LateralityCollection Method / VolumeCollection TimeReceived Time 01/15/2016 3:21 PM CDT01/15/2016 3:34 PM CDT Narrative HP CONVERSION - 01/15/2016 5:33 PM [place] [address] CLIA number [id number] Authorizing ProviderResult TypeResult StatusDiSRAVANTHI Rojas APRN_1Final ResultPerforming OrganizationAddressCity/State/ZIP CodePhone Number HP CONVERSION * Lipid Panel and Direct LDL(If Needed) (08/05/2015 10:53 AM CDT)ComponentValue Ref RangeTest MethodAnalysis TimePerformed AtPathologist SignatureCholesterol 1780 - 200 mg/dLHP XXBRUZHNJEYfpxmrmsgccra4054 - 149 mg/dLHP CONVERSIONHDL Hvmawztkrnm93>39 mg/dLHP CONVERSIONCholesterol/HDL Ratio Screen4.3HP CONVERSIONLDL Adpnjetwxa85973 - 130 mg/dLHP CONVERSIONHours Flpfrgo06.0HP CONVERSIONSpecimen (Source)Anatomical Location / LateralityCollection Method / VolumeCollection TimeReceived Time08/05/2015 10:53 AM CDT1 10:53 AM CDT Narrative HP CONVERSION - 08/05/2015 11:33 AM CDT Performed at [facility], [address] [place] [address] CLIA number [id number] Authorizing ProviderResult TypeResult StatusClintderrick Andrews APRN, CNPLAB_1 Final ResultPerforming OrganizationAddressCity/State/ZIP CodePhone Number HP CONVERSION from Last 3 Months or Most Recently Relevant to Health Maintenance Care Teams Team MemberRelationshipSpecialtyStart DateEnd Date Ayan Andrews, KARUNA, ZOO DIRECTOR [address] [place] [address] PCP - Iwezrff69/29/13
--- OUTSIDE RECORDS SUMMARY | 2025-10-16 02:10 | XMS_ITS | Encounter Summary ---
Author Organization [facility] Address [address] [place] [address]. [place] [address] Care Team Providers Care Press Supervisor Name Role Phone Clinic, [facility] [place] Unavailable [phone] No Ref-Primary, Physician Primary Care Provider Abi Mcclellan MD Unavailable Encounter Details DateTypeDepartmentCare Team (Latest Contact Info)Rrtnzcqggte80/27/2025[facility] Medical Advice Initial Department [address] [place] [phone] Claudio James Social History Tobacco UseTypesPacks/DayYears UsedDateSmoking Tobacco: QzclydYrypghhqvd8Dlca: 05/06/1997Smokeless Tobacco: CurrentChewAlcohol UseStandard Drinks/WeekComments No0 (1 standard drink = 0.6 oz pure alcohol)Quit January 01, 2017AUDIT-CAnswerDate RecordedQ1: How often do you have a drink containing alcohol?Never10/13/2025 Average Number of DrinksNot on file10/13/2025Frequency of Binge DrinkingNot on file10/13/2025PHQ-2AnswerDate RecordedPHQ-2 Hxabv98411/07/2024dolescent Education AnswerDate RecordedGetting School Help NeededNot on [...] in an abandoned building, in an overnight snf, or couch-surfing.)Yes10/15/2025re you worried about losing your [...] ValueDate RecordedSex Assigned at BirthNot on fileLegal RrgIxll73/04/2012 3:21 AM CSTGender IdentityNot on fileSexual OrientationNot on filedocumented as of this encounter Plan of Treatment DateTypeDepartmentCare Team (Latest Contact Info)Wyyrwhhjgdp02/06/2026 1:30 PM CSTOffice Visit [facility] [address] [place] [address] Abi Mcclellan MD [address] [place], [place] [address] 11/22/2025 8:30 AM CSTVirtual Visit [facility] [address] [place] [phone] Jillian Reeves [facility] [address] [place] [address] 11/22/2025 9:00 AM CSTVirtual Visit [facility] Addiction [place] [address] [place] [phone] Abi Mcclellan MD [address] [place], [place] [phone] Elisa Colon DO [address] [place], [place] [phone] documented as of this encounter Visit Diagnoses Not on filedocumented in this encounter Additional Health Concerns AssessmentNoted TimePHQ-9 Depression Total Score: 7111/07/2024 1:50 PM LUMBER TRIMMER documented as of this encounter Care Teams Team MemberRelationshipSpecialtyStart DateEnd Date No Ref-Primary, Physician PCP - General05/28/23 [facility] [address] [place], [place] [phone] PCP02/09/18 Abi Mcclellan MD [address] [place], [place] [phone] Assigned PCP09/09/25documented as of this encounter
--- OUTSIDE RECORDS SUMMARY | 2025-10-16 02:10 | XMS_ITS | Encounter Summary ---
Author Organization [facility] Address [address] [place] [address] Care Team Providers Care Attendance Clerk Name Role Phone Clinic, [facility] [place] Unavailable [phone] No Ref-Primary, Physician Primary Care Provider Abi Mcclellan MD Unavailable Encounter Details DateTypeDepartmentCare Team (Latest Contact Info)Khdqwsnltgk60/29/2025Travel Social History Tobacco UseTypesPacks/DayYears UsedDateSmoking Tobacco: EdufxkAikavjnure2Hcym: 05/06/1997Smokeless Tobacco: CurrentChewAlcohol UseStandard Drinks/WeekComments No0 (1 standard drink = 0.6 oz pure alcohol)Quit January 01, 2017AUDIT-CAnswerDate RecordedQ1: How often do you have a drink containing alcohol?Never10/13/2025 Average Number of DrinksNot on file10/13/2025Frequency of Binge DrinkingNot on file10/13/2025PHQ-2AnswerDate RecordedPHQ-2 Eltsm45911/07/2024dolescent Education AnswerDate RecordedGetting School Help NeededNot on [...] abandoned building, in an overnight detention, or couch-surfing.)Yes10/15/2025re you worried about losing your [...] ValueDate RecordedSex Assigned at BirthNot on fileLegal CfeXrfl96/04/2012 3:21 AM CSTGender IdentityNot on fileSexual OrientationNot on filedocumented as of this encounter Plan of Treatment DateTypeDepartmentCare Team (Latest Contact Info)Vhhfsiiclog54/06/2026 1:30 PM CSTOffice Visit [facility] [address] [place] [phone] Abi Mcclellan MD [address] [place], [place] [address] 11/22/2025 8:30 AM CSTVirtual Visit [facility] Mental Health & Addiction [address] [place] [address] Jillian Reeves [facility] [address] [place] [address] 11/22/2025 9:00 AM CSTVirtual Visit [facility] & Addiction [place] [address] [place] [phone] Abi Mcclellan MD [address] [place], [place] [address] Elisa Colon DO [address] [place], [place] [phone] documented as of this encounter Visit Diagnoses Not on filedocumented in this encounter Additional Health Concerns AssessmentNoted TimePHQ-9 Depression Total Score: 7111/07/2024 1:50 PM MENAGERIE SUPERINTENDENT documented as of this encounter Care Teams Team MemberRelationshipSpecialtyStart DateEnd Date No Ref-Primary, Physician PCP - General05/28/23 [facility] [address] [place] [phone] PCP02/09/18 Aib Mcclellan MD [address] [place], [place] [address] Assigned PCP09/09/25documented as of this encounter
--- OUTSIDE RECORDS SUMMARY | 2025-10-16 02:10 | XMS_ITS | Encounter Summary ---
Author Organization [facility] Address [address] [place] [address] Care Team Providers Care Siebel Developer Name Role Phone [facility] Unavailable No Ref-Primary, Physician Primary Care Provider Abi Mcclellan MD Unavailable Encounter Details DateTypeDepartmentCare Team (Latest Contact Info)Eezmgckospu01/07/2025[facility] Medical Advice [facility] [address] [place] [address] Abi Mcclellan MD [address] [place] [address] Alcoholic cirrhosis of liver with ascites (H) Social History Tobacco UseTypesPacks/DayYears UsedDateSmoking Tobacco: SkwwysEsznsaopln4Kepk: 05/06/1997Smokeless Tobacco: CurrentChewAlcohol UseStandard Drinks/WeekComments No0 (1 standard drink = 0.6 oz pure alcohol)Quit January 01, 2017PHQ-2AnswerDate RecordedPHQ-2 Qqewd84011/07/2024dolescent EducationAnswerDate RecordedGetting School Help NeededNot on file08/01/2023Food InsecurityAnswerDate RecordedWithin the past 12 months, did you worry that your food would run out before you got money to buy more?No11/09/2023Within the past 12 months, did the food you bought just not last and you didn???t have money to getmore?No08/26/2023Housing StabilityAnswerDate RecordedDo you have housing? (Housing is defined as stable permanent housing and does not include staying outside in a car, in a tent, in an abandoned building, in an overnight fpc, or couch-surfing.)Yes08/26/2023 Are you worried about losing [...] InformationValueDate RecordedSex Assigned at BirthNot on fileLegal FwbOmkc61/04/2012 3:21 AM CSTGender IdentityNot on file Sexual OrientationNot on filedocumented as of this encounter Plan of Treatment DateTypeDepartmentCare Team (Latest Contact Info)Mevhqbtdrua16/06/2026 1:30 PM CSTOffice Visit [facility] [address] [place] [phone] Abi Mcclellan MD [address] [place] [address] 11/22/2025 8:30 AM CSTVirtual Visit [facility] [place] [address] [place] [address] [place] [phone] Jillian Reeves [facility] [address] [place] [address] 11/22/2025 9:00 AM CSTVirtual Visit [facility] [place] [address] [place] [phone] Abi Mcclellan MD [address] [place], [place] [address] Elisa Colon DO [address] [place], [place] [address] documented as of this encounter Visit Diagnoses Diagnosis Alcoholic cirrhosis of liver with ascites (H) Alcoholic cirrhosis of liver documented in this encounter Additional Health Concerns AssessmentNoted TimePHQ-9 Depression Total Score: 7111/07/2024 1:50 PM UPPER TRIMMER documented as of this encounter Care Teams Team MemberRelationshipSpecialtyStart DateEnd Date No Ref-Primary, Physician PCP - General05/28/23 [facility] [address] [place] [phone] PCP02/09/18 Abi Mcclellan MD [address] [place], [place] [phone] Assigned PCP09/09/25documented as of this encounter
--- OUTSIDE RECORDS SUMMARY | 2025-10-16 02:10 | XMS_ITS | Clinical Summary ---
Author Organization [place] Address [address] [place] [address] Care Team Providers Care Medical Field Representative Name Role Phone Clinic, [facility] Unavailable [phone] No Ref-Primary, Physician Primary Care Provider Abi Mcclellan MD Unavailable Allergies Active AllergyReactionsCriticalityNoted DateCommentsEicosapentaenoic Acid (Epa) (Fish)LuzhuwpavekCskc97/29/2015Fish Protein-Containing Drug ProductsAnaphylaxis High11/15/2014 Has had IV contrast 12/2015 without issue JqmqeikxxSjlyzKlv14/11/0055JeviucrdvotMbdmlBpcj88/11/2011 Has tolerated ampicillin/sulbactam Medications * This document contains information received from the source organization and may not represent a complete record from that organization. MedicationSigDispense QuantityRefillsLast FilledStart DateEnd DateStatus kaxgkvqq-hxoprbscm-jxcXCZSTdjvuk (MAXITROL) 0.1 % ophthalmic suspension Indications:Acute bacterial conjunctivitis of both eyesPlease instill 1-2 drops into both eyes 4 times daily for 7 days 10 mL 09/28/2023ctive furosemide (LASIX) 20 MG tablet Indications:Alcoholic cirrhosis of liver with ascites (H)Take 2 tablets (40 mg) by mouth daily. 60 tablet ctive cholestyramine (QUESTRAN) 4 g packet Indications:Jaundice,ItchingTake 1 packet (4 g) by mouth 2 times daily. 60 packet ctive diphenhydrAMINE (BENADRYL) 25 MG capsule Indications:Jaundice,ItchingTake 1 capsule (25 mg) by mouth every 6 hours as needed for itching. 30 capsule 10/14/2025tive spironolactone (ALDACTONE) 50 MG tablet Indications:Alcoholic cirrhosis of liver with ascites (H)Take 1 tablet (50 mg) by mouth daily. 30 tablet ctive furosemide (LASIX) 20 MG tablet Indications:Alcoholic cirrhosis of liver with ascites (H)TAKE 1 TABLET BY MOUTH ONCE DAILY . APPOINTMENT REQUIRED FOR FUTURE REFILLS 60 tablet Discontinued(Reorder (No AVS)) tamsulosin (FLOMAX) 0.4 MG capsule Indications:Benign prostatic hyperplasia with nocturiaTake 1 capsule (0.4 mg) by mouth daily. 30 capsule Discontinued(Med Rec(No AVS / No eCancel)) losartan (COZAAR) 25 MG tablet Indications:Primary hypertensionTake 1 tablet (25 mg) by mouth daily. 90 tablet Discontinued(Med Rec(No AVS / No eCancel)) furosemide (LASIX) 20 MG tablet Indications:Alcoholic cirrhosis of liver with ascites (H)TAKE 1 TABLET BY MOUTH ONCE DAILY . APPOINTMENT REQUIRED FOR FUTURE REFILLS 60 tablet Discontinued(Med Rec(No AVS / No eCancel)) furosemide (LASIX) 20 MG tablet Take 20 mg by mouth as needed.10/14/2025Discontinued Active Problems ProblemNoted DateDiagnosed DateDecompensated liver rkvtqov6010/13/2025Hepatitis 10/09/2025Major depressive disorder, recurrent episode, qvilxwmg73/21/2025Melena 05/16/20237393Jfphifcjmau75/30/8782Zjprumaiiklmhlfy03/30/2023astrointestinal hemorrhage associated with alcoholic ecbafsmul73/30/2023lcohol abuse03/04/2017 Nontraumatic brain bfrqfc7102/13/2017 Overview (07/22/2020): IMO Regulatory Load JUL 2020 Alcoholic cirrhosis of liver with fcvozwk4602/12/20173422Gzszx17/02/2017Alcoholic /20/3581Waprnksoyqmkxd28/04/2013orderline diabetes mellitus 09/20/20136993Errfscwntwqd38/30/2012 Resolved Problems ProblemNoted DateDiagnosed DateResolved DateAlcohol withdrawal seizure without fzwpzenhwvbf95/30/202311/nemia, unspecified type/ Hepatic drovneypzrdivs45cute respiratory failure with hypoxia, requiring serial intubations during this hospitalization.02/12/2017 5C. difficile /02/SBP (spontaneous bacterial peritonitis)Seizure due to alcohol fizdtuwycc93/20/2017 09/07/2025 Encounters DateTypeDepartmentCare HguzUgasxbybmhk43/29/2025 10:42 PM NURSERYPERSON - 10/16/2025 2:04 AM CSTEmergency [facility] Emergency Dept [address] [place] [address] [phone] Discharge Disposition: Home or Self Care10/15/20255454Vehxws06/27/2025My Medical Advice Initial Department [address] [place] [phone] [facility]25[facility] Initial Department [address] [place] [phone] Mychart, [place] 10/12/2025 11:38 PM NURSERYPERSON - 10/14/2025 2:16 PM CSTHospital Encounter [facility] 5 Medical Surgical [address] [place] [address] Katie Messer, Crystal Dempsey MD Alcoholic cirrhosis of liver with ascites (H) (Primary Dx); Jaundice; Hypokalemia; Anemia, unspecified type; Itching Discharge Disposition: Home or Self Care10/12/20258072Ofumnx07/26/2025Telephone [place] [address] [place] [phone] No Ref-Primary, Physician 10/12/2025Telephone [facility] [address] [place] [phone] Abi Mcclellan MD Clinic Care Coordination - Chinobf1810/11/2025 10:30 AM CSTVirtual Visit [facility] [address] [phone] Maris Reece MD Itching (Primary Dx)10/10/2025Results Follow-Up [facility] Nurse Advisors [facility] [place] [phone] Chrissie Monae RN 10/09/2025 1:51 PM NURSERYPERSON - 10/09/2025 4:45 PM CSTHospital Encounter [facility] Emergency Dept [address] [place] [address] Zenon Khanna MD Hepatitis (Primary Dx); 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) Discharge Disposition: Home or Self Care10/09/20253638Pvbjqz70/22/2025My Medical Advice [facility] [address] [place] [phone] Ami Marcelino RN Jaundice (Ascites, wants paracentesis)10/08/2025Refill [facility] [address] [place] [phone] No Ref-Primary, Physician Refill Rdfnvxs1709/23/2025My Medical Advice [facility] [address] [place] [phone] Abi Mcclellan MD Alcoholic cirrhosis of liver with ascites (H)09/18/2025Results Follow-Up [facility] [address] [place] [phone] Abi Mcclellan MD Dx: Alcoholic cirrhosis of liver with ascites (H) (Primary Dx)09/12/2025 9:45 AM CSTLab [facility] [address] [place] [phone] Primary hypertension; Alcoholic cirrhosis of liver with ascites (H)09/12/2025Documentation Only [facility] [address] [place] [phone] Abi Mcclellan MD 09/11/2025Telephone [facility] [address] [place] [phone] Abi Mcclellan MD 09/11/20259461Yioooy18/21/2025 2:00 PM CSTOffice Visit [place] [address] [place] [phone] Abi Mcclellan MD Primary hypertension (Primary Dx); Other hyperlipidemia; Benign prostatic hyperplasia with nocturia; Alcoholic cirrhosis of liver with ascites (H); Major depressive disorder, recurrent episode, moderate (H); TERENCE (generalized anxiety disorder)09/07/2025MyC Medical Advice [facility] [address] [place] [phone] Abi Mcclellan MD 09/07/20252209Droohq91/20/2025Refill [facility] [address] [place] [phone] Shilpa Ott MD Medication Refillfrom Last 3 Months Immunizations ImmunizationAdministration DatesNext DueTDAP Vaccine (Adacel)06/10/2020 Family History Medical HistoryRelationCommentsDiabetesFatherType IIUnknown/AdoptedFather Substance AbuseMaternal GrandfatherUnknown/AdoptedMaternal GrandmotherAnxiety DisorderNo family hx ofAutism Spectrum DisorderNo family hx ofBipolar DisorderNo family hx ofDementiaNo family hx ofDepressionNo family hx ofHuntington DiseaseNo family hx ofIntellectual DisabilityNo family hx ofMental IllnessNo family hx of ParkinsonismNo family hx ofSchizophreniaNo family hx ofSuicideNo family hx of RelationStatusCommentsFatherAliveMaternal GrandfatherAliveMaternal Grandmother DeceasedMotherDeceased Social History Tobacco UseTypesPacks/DayYears UsedDateSmoking Tobacco: PhzpylEsjtceitgq2Njrt: 05/06/1997Smokeless Tobacco: CurrentChew Tobacco Cessation:Ready to Q uit: Not Asked; Counseling Given: Not Answered Alcohol UseStandard Drinks/WeekCommentsNo0 (1 standard drink = 0.6 oz pure alcohol)Quit January 01, 2017AUDIT-CAnswerDate RecordedQ1: How often do you have a drink containing alcohol?Never10/13/2025verage Number of DrinksNot on file 10/13/2025Frequency of Binge DrinkingNot on file10/13/2025PHQ-2AnswerDate RecordedPHQ-2 Ycqzh05111/07/2024dolescent EducationAnswerDate RecordedGetting School Help NeededNot on file08/01/2023Food [...] abandoned building, in an overnight assisted, or couch-surfing.)Yes10/15/2025 Are you worried about losing your housing?Yes10/15/2025Financial Resource Strain AnswerDate RecordedWithin the past 12 months, have you or your family members you live with been unable to get utilities (heat, electricity) when it was really needed?Yes10/15/2025Transportation NeedsAnswerDate RecordedWithin the past 12 months, has lack of transportation kept you from medical appointments, getting your medicines, non-medical meetings or appointments, work, or from getting things that you need?No10/15/2025Interpersonal SafetyAnswerDate Recorded Do you feel physically and emotionally safe where you currently live?Yes 10/15/2025Within the past 12 months, have you been hit, slapped, kicked or otherwise physically hurt by someone?No10/15/2025Within the past 12 months, have you been humiliated or emotionally abused in other ways by your partner or ex-partner?No10/15/2025Sex and Gender InformationValueDate RecordedSex Assigned at BirthNot on fileLegal JevMblz72/04/2012 3:21 AM CSTGender IdentityNot on file Sexual OrientationNot on file Last Filed Vital Signs Vital SignReadingTime TakenCommentsBlood Aujpinrt220/6610/15/2025 8:13 PM NURSERYPERSON Qoico155010/15/2025 8:13 PM QKQEerbunhenal82.6 ??C (97.8 ??F)10/15/2025 8:13 PM CSTRespiratory Pnkf4215 8:13 PM CSTOxygen Duifsnftcj95%10/15/2025 8:13 PM CSTInhaled Oxygen Concentration--Qoomjf931.6 kg (237 lb 4.8 oz)10/13/2025 12:49 PM JFLSjmzmy766.8 cm (5' 10)10/12/2025 11:14 PM CSTBody Mass Index34.05 10/12/2025 11:14 PM NURSERYPERSON Plan of Treatment DateTypeDepartmentCare Team (Latest Contact Info)Tkeqfqktooq42/06/2026 1:30 PM CSTOffice Visit [facility] [address] [place] [phone] Abi Mcclellan MD [address] [place] [address] 11/22/2025 8:30 AM CSTVirtual Visit [facility] [address] [place] [phone] Jillian Reeves [facility] [address] [place] [phone] 11/22/2025 9:00 AM CSTVirtual Visit [facility] [place] [address] [place] [address] Abi Mcclellan MD [address] [place], [place] [phone] Elisa Colon DO [address] [place] [address] Health MaintenanceDue DateLast DoneCommentsADVANCE CARE MZLCEGIB1967CT DLTDYNTBXJBP1967DEPRESSION ACTION PLAN1967FLEX SIG1967sDNA (Cologuard)1967HEPATITIS A VACCINE (1 of 2 - Risk 2-dose series)1986 HEPATITIS B VACCINE (1 of 3 - 19+ 3-dose series)1986PNEUMOCOCCAL VACCINE 50+ YEARS (1 of 2 - PCV)1986ZOSTER VACCINE (1 of 2)2017YEARLY PREVENTIVE VISIT/, 11/14/2018FIT/NNUAL REVIEW OF HM OWLPHH37/3COVID-19 VACCINE (1 - season) 2025INFLUENZA VACCINE (#1)2025PHQ-905//, 02/28/2024, 02/14/2024, Additional history bamrngELUDI86/26/202611/, 06/10/2020, 11/14/2018BMP1, 10/13/2025, 10/13/2025, Additional history seqneqENOLANYJILX27COLORECTAL CANCER BSSWWIPYZ35/10/2027 DIABETES TMBFPWIAS53, 10/13/2025, 10/13/2025, Additional history existsDTAP/TDAP/TD VACCINE (2 - Td or Tdap)HIV HKTOYJSXSIoztdmfqb66/02/2017LUNG CANCER AKIOAENCBRwbhssiojofo80/30/2023, 01/09/2017HEPATITIS C WABPGGQCYAnepbnnpu04/27/2025, 10/13/2025, 05/28/2023, Additional history existsHPV VACCINE (No Doses Required)CompletedMENINGITIS VACCINEAged OutNo longer eligible based on patient's age to complete this topic Procedures Procedure NamePriorityDate/TimeAssociated DiagnosisCommentsCOMPREHENSIVE METABOLIC PANEL (LIMITED OCCURRENCES)Timed10/14/2025 6:41 AM NURSERYPERSON CBC WITH PLATELETS (LIMITED OCCURRENCES)Klhvzih8910/14/2025 6:41 AM NURSERYPERSON POTASSIUM (LIMITED OCCURRENCES)Timed10/14/2025 1:01 AM NURSERYPERSON POTASSIUM (LIMITED OCCURRENCES)Timed10/13/2025 5:04 PM NURSERYPERSON AFP TUMOR KISWCDSlvnmtq17/27/2025 1:34 PM NURSERYPERSON PHOSPHATIDYLETHANOL (PETH), WHOLE KDDUZWvesjoq05/27/2025 1:34 PM NURSERYPERSON F ACTIN EIA WITH TYIGJUJodxknb90/27/2025 1:34 PM NURSERYPERSON IJONECGMMaemkrg01/27/2025 1:34 PM NURSERYPERSON IRON AND IRON BINDING XXBHRLZTQbmljdp53/27/2025 1:34 PM NURSERYPERSON OLRITTSFLRDAJRyipeua67/27/2025 1:34 PM NURSERYPERSON HEPATITIS C ISXRBUPXNsozggt60/27/2025 1:34 PM NURSERYPERSON HEPATITIS B SURFACE WCQOLHTFfbfmll51/27/2025 1:34 PM NURSERYPERSON HEPATITIS B SURFACE FOGUACGGXjfutfn44/27/2025 1:34 PM NURSERYPERSON HEPATITIS B CORE TYVKVDQTPqucbkp06/27/2025 1:34 PM NURSERYPERSON HEPATITIS A ANTIBODY FXGKxvfkpe01/27/2025 1:34 PM NURSERYPERSON US ABDOMEN COMPLETE WITH DOPPLER AHFTVXDNXxletor09/27/2025 10:55 AM NURSERYPERSON CBC WITH PLATELETS (LIMITED OCCURRENCES)STAT112/14/2024 5:43 AM NURSERYPERSON COMPREHENSIVE METABOLIC PANEL (LIMITED OCCURRENCES)STAT112/14/2024 5:43 AM NURSERYPERSON ACUTE HEPATITIS ANPAPWXAX25/27/2025 5:43 AM NURSERYPERSON EKG 12-LEAD, TRACING NIXMYFNR16/27/2025 2:[address] ABDOMEN PELVIS W GLHPHNUDDTAL14/27/2025 1:39 AM NURSERYPERSON GLUCOSE BY XVDVYLKQO23/27/2025 12:14 AM NURSERYPERSON CBC WITH PLATELETS AND DIFFERENTIAL (LIMITED OCCURRENCES)STAT112/14/2024 12:06 AM NURSERYPERSON FERRITINAdd-On10/13/2025 12:06 AM NURSERYPERSON MAGNESIUM (LIMITED OCCURRENCES)STAT112/14/2024 12:06 AM NURSERYPERSON CBC WITH PLATELETS AND FUNPMMNEPEKADGQK12/27/2025 12:06 AM NURSERYPERSON BILIRUBIN FSVEBDBMKX65/27/2025 12:06 AM NURSERYPERSON ETHANOL LEVEL JMAAPOKJC08/27/2025 12:06 AM NURSERYPERSON BKLUDII6810/13/2025 12:06 AM NURSERYPERSON GLEMJNTFOR59/27/2025 12:06 AM NURSERYPERSON COMPREHENSIVE METABOLIC PANEL (LIMITED OCCURRENCES)STAT112/14/2024 12:06 AM NURSERYPERSON ROUTINE UA WITH MICROSCOPIC REFLEX TO UTUEBJTRIDD53/23/2025 4:03 PM NURSERYPERSON US PARACENTESIS WITH QCDYGRFQBCY34/23/2025 3:24 PM NURSERYPERSON CELL COUNT WITH DIFFERENTIAL XDUKHOWXW33/23/2025 3:11 PM NURSERYPERSON AEROBIC BACTERIAL CULTURE EDRWXUEXREV28/23/2025 3:11 PM NURSERYPERSON DIFERENTIAL BODY HEZWVFWYO11/23/2025 3:11 PM NURSERYPERSON CELL COUNT BODY XVBCYAEZZ99/23/2025 3:11 PM NURSERYPERSON PROTEIN DDDIUJKXD86/23/2025 3:11 PM NURSERYPERSON ALBUMIN HXXURPDCI65/23/2025 3:11 PM NURSERYPERSON CBC WITH PLATELETS AND DIFFERENTIAL (LIMITED OCCURRENCES)STAT112/10/2024 1:15 PM NURSERYPERSON ETHANOL LEVEL BLOODAdd-On10/09/2025 1:15 PM NURSERYPERSON ALGIVUV2910/09/2025 1:15 PM NURSERYPERSON EXTRA RED TOP BEJPNGLG40/23/2025 1:15 PM NURSERYPERSON EXTRA BLUE TOP XKBRHRHT45/23/2025 1:15 PM NURSERYPERSON CBC WITH PLATELETS AND IMSFUNKWSMGDJCVM51/23/2025 1:15 PM NURSERYPERSON BILIRUBIN VIIPYDBXZP92/23/2025 1:15 PM NURSERYPERSON EXTRA RJACZWLB72/23/2025 1:15 PM NURSERYPERSON ZDPJWTHRMS64/23/2025 1:15 PM NURSERYPERSON COMPREHENSIVE METABOLIC PANEL (LIMITED OCCURRENCES)STAT112/10/2024 1:15 PM NURSERYPERSON LIPID REFLEX TO DIRECT LDL WQASSKajddyu84/26/2025 9:42 AM NURSERYPERSON Alcoholic cirrhosis of liver with ascites (H) COMPREHENSIVE METABOLIC WSKVIPhczupi51/26/2025 9:42 AM NURSERYPERSON Primary hypertension Alcoholic cirrhosis of liver with ascites (H) OCCULT BLOOD GXIGTPMYL14/30/2023 9:[address] CHEST PE ABDOMEN PELVIS W ACPNJGTQFVTC65/30/2023 7:57 PM CDT HIV ANTIGEN ANTIBODY FQSCIYtiwcrg16/02/2017 4:40 AM CDT Hepatic encephalopathy (H) from Last 3 Months or Most Recently Relevant to Health Maintenance Results * (ABNORMAL) CBC with Platelets (Limited Occurrences) (10/14/2025 6:41 AM NURSERYPERSON) Only the most recent of2 resultswithin the time period is included. ComponentValueRef RangeTest MethodAnalysis TimePerformed AtPathologist Signature WBC Count5.464.00 - 11.00 10e3/uL10/14/2025 7:16 AM [facility] LABORATORYRBC Count 3.59(L)4.40 - 5.90 10e6/uL10/14/2025 7:16 AM [facility] LABORATORYHemoglobin8.3(L) 13.3 - 17.7 g/dL10/14/2025 7:16 AM [facility] FQCOCRVSDXDfadivqfnh07.7(L)40.0 - 53.0 %10/14/2025 7:16 AM [facility] JKVDNRNOPRULC03.2(L)78.0 - 100.0 fL10/14/2025 7:16 AM [facility] USSTVGPFDSSYD80.1(L)26.5 - 33.0 pg10/14/2025 7:16 AM [facility] LABORATORYMCHC 30.0(L)31.5 - 36.5 g/dL10/14/2025 7:16 AM [facility] AGVEQPFCUDJKG45.0(H)10.0 - 15.0 %10/14/2025 7:16 AM [facility] LABORATORYPlatelet Ipjin720(L)150 - 450 10e3/uL 10/14/2025 7:16 AM [facility] LABORATORYSpecimen (Source)Anatomical Location / LateralityCollection Method / VolumeCollection TimeReceived TimeBloodSTRUCTURE OF RIGHT UPPER LIMB / UnknownVenipuncture / Vybicoe8010/14/2025 6:41 AM NURSERYPERSON 10/14/2025 6:51 AM NURSERYPERSON Narrative Authorizing ProviderResult TypeResult StatusCherinet Jade Perdomo MDLAB - BLOOD ORDERABLESFinal ResultPerforming OrganizationAddressCity/State/ZIP CodePhone Number [facility] [address] [facility] (1st floor, no room number) [place] [address], [facility] * (ABNORMAL) Comprehensive Metabolic Panel (Limited Occurrences) (10/14/2025 6:41 AM NURSERYPERSON) Only the most recent of4 resultswithin the time period is included. ComponentValueRef RangeTest MethodAnalysis TimePerformed AtPathologist Signature Tewdbf451(L)135 - 145 mmol/L112/15/2024 7:47 AM [facility] LABORATORYPotassium3.63.4 - 5.3 mmol/L112/15/2024 7:47 AM [facility] LABORATORYCarbon Dioxide (CO2)2622 - 29 mmol/L112/15/2024 7:47 AM [facility] LABORATORYAnion Ttb892 - 15 mmol/L112/15/2024 7:47 AM [facility] LABORATORYUrea Dsyemsvy33.26.0 - 20.0 mg/dL10/14/2025 7:47 AM [facility] LABORATORYCreatinine1.20(H)0.67 - 1.17 mg/dL10/14/2025 7:47 AM [facility] GFR Cuyaitju17>60 mL/min/1.23q70510/14/2025 7:47 AM [facility] LABORATORYComment:eGFR calculated using 2020 CKD-EPI equation.Calcium8.0(L)8.8 - 10.4 mg/dL10/14/2025 7:47 AM [facility] XBHNEYYUWVLpoiqcqs8009 - 107 mmol/L112/15/2024 7:47 AM [facility] BYNMFKSZDHFnkjohh1680 - 99 mg/dL10/14/2025 7:47 AM [facility] LABORATORYAlkaline Gdoialtzcnp334(H)40 - 150 U/L112/15/2024 7:47 AM [facility] LCGSLKQJOQMBF932(H)0 - 45 U/L112/15/2024 7:47 AM [facility] GXNCOJZZIWSVI591 - 70 U/L112/15/2024 7:47 AM [facility] LABORATORYProtein Total6.3(L)6.4 - 8.3 g/dL10/14/2025 7:47 AM [facility] Albumin2.6(L)3.5 - 5.2 g/dL10/14/2025 7:47 AM [facility] LABORATORYBilirubin Total 14.8(H)<=1.2 mg/dL10/14/2025 7:47 AM [facility] LABORATORYSpecimen (Source)Anatomical Location / LateralityCollection Method / VolumeCollection TimeReceived TimeBlood STRUCTURE OF RIGHT UPPER LIMB / UnknownVenipuncture / Xlxbang6410/14/2025 6:41 AM CST10/14/2025 6:51 AM NURSERYPERSON Narrative Authorizing ProviderResult TypeResult StatusAnne-Marie Perdomo MDLAB - BLOOD ORDERABLESFinal ResultPerforming OrganizationAddressCity/State/ZIP CodePhone Number [facility] [address] [facility] (1st floor, no room number) [place] [address], [facility] * Potassium (Limited Occurrences) (10/14/2025 1:01 AM NURSERYPERSON) Only the most recent of2 resultswithin the time period is included. ComponentValueRef RangeTest MethodAnalysis TimePerformed AtPathologist Signature Potassium3.43.4 - 5.3 mmol/L112/15/2024 1:23 AM [facility] LABORATORYSpecimen (Source) Anatomical Location / LateralityCollection Method / VolumeCollection Time Received TimeBloodSTRUCTURE OF RIGHT UPPER LIMB / UnknownVenipuncture / Unknown 10/14/2025 1:01 AM CST10/14/2025 1:03 AM NURSERYPERSON Narrative Authorizing ProviderResult TypeResult StatusCrystal US - BLOOD ORDERABLESFinal ResultPerforming OrganizationAddressCity/State/ZIP CodePhone Number LABORATORY [facility] [address] [facility] (1st floor, no room number) [place] [address], [facility] * Hepatitis B Surface Antibody (10/13/2025 1:34 PM NURSERYPERSON)ComponentValueRef Range Test MethodAnalysis TimePerformed AtPathologist SignatureHepatitis B Surface FwuwmctaXbknznjokmc00/27/2025 4:38 PM CSTUU LABORATORYComment:Nonreactive results, defined as [...] OF RIGHT UPPER LIMB / UnknownVenipuncture / Uvfsifw5310/13/2025 1:34 PM CST10/13/2025 1:39 PM NURSERYPERSON [facility] LABORATORY - 10/13/2025 4:38 PM NURSERYPERSON Methodology for this test was changed on 07/26/25 from the Elecsys Anti-HBs Gen I to Elecsys Anti-HBs Gen II assay. The assay restaurant server ([employer]) reformulated this assay to increase its resistance to biotin interference, to include pediatric patients (ages 2-21 years), and to eliminate the g ray zone category for test reporting and interpretation. Authorizing ProviderResult TypeResult StatusGregory Ted US - BLOOD ORDERABLESFinal ResultPerforming OrganizationAddressCity/State/ZIP CodePhone Number LABORATORY [facility] [address] [facility] [place] [address], [facility] * Phosphatidylethanol (PEth), Whole Blood (10/13/2025 1:34 PM NURSERYPERSON)ComponentValue Ref RangeTest MethodAnalysis TimePerformed AtPathologist SignaturePEth 16:0/18:1 (POPEth)293ng/mL10/15/2025 5:28 PM CSTARUP LABSComment: PEth 16:0/18:1 (POPEth) Less than 10 ng/mL............Not detected Less than 20 ng/mL............Abstinence or light alcohol consumption 20 - 200 ng/mL................Moderate alcohol consumption Greater than 200 ng/mL........Heavy alcohol consumption or chronic alcohol use (Reference: Mohan Vaughn and Darleen Kelly 2018 J. Forensic Sci) PEth 16:0/18:2 (PLPEth)202ng/mL10/15/2025 5:28 PM CSTARUP LABSComment:Reference ranges are not well established.EER Phosphatidylethanol (PETH)See Note10/15/2025 5:28 PM CSTARUP LABSComment: Authorized individuals can access the [facility] Enhanced Report with an [employer] Connect account using the following link. Your local lab can assist you in obtaining the patient report if you don't have a Connect account. [email or web address] PEth InterpretationSee Hibpyha6410/15/2025 5:28 PM CSTARUP LABSComment: Phosphatidylethanol (PEth) is a group of [...] developed and its performance characteristics determined by [facility]. It has not been cleared or approved by the U.S. Food and Drug Administration. This test was performed in a CLIA-certified laboratory and is intended for clinical purposes. Performed By: [facility] [employer] [address] [place] [address] Judicial Law Clerk: Georges Ohara MD, PhD CLIA Number: [id number] Specimen (Source)Anatomical Location / LateralityCollection Method / Volume Collection TimeReceived TimeBloodSTRUCTURE OF RIGHT UPPER LIMB / Unknown Venipuncture / Utjvqrj2510/13/2025 1:34 PM CST10/13/2025 1:39 PM NURSERYPERSON Narrative Authorizing ProviderResult TypeResult StatusMethodist Rehabilitation Centerelizabeth Ted MDGE[facility] BLOOD ORDERABLESFinal ResultPerforming OrganizationAddressCity/State/ZIP CodePhone Number [address] [address], [facility] [phone] * (ABNORMAL) Iron and iron binding capacity (10/13/2025 1:34 PM NURSERYPERSON)Component ValueRef RangeTest MethodAnalysis TimePerformed AtPathologist WmtjjedqeCvil11 (L)61 - 157 ug/dL10/13/2025 2:01 PM [facility] LAB[facility]ORYIron Binding Iaveyqup901 (L)240 - 430 ug/dL10/13/2025 2:01 PM [facility]ORYIron Sat Unlfr9285 - 46 % 10/13/2025 2:01 PM [facility] LABORATORYSpecimen (Source)Anatomical Location / LateralityCollection Method / VolumeCollection TimeReceived TimeBloodSTRUCTURE OF RIGHT UPPER LIMB / UnknownVenipuncture / Cxxzleb6710/13/2025 1:34 PM NURSERYPERSON 10/13/2025 1:39 PM NURSERYPERSON Narrative Authorizing ProviderResult TypeResult StatusGregelizabeth Jean [facility] BLOOD ORDERABLESFinal ResultPerforming OrganizationAddressCity/State/ZIP CodePhone Number [facility] [address] [facility] [address] (1st floor, no room number) [place] [address], [facility] * Hepatitis C antibody (10/13/2025 1:34 PM NURSERYPERSON)ComponentValueRef RangeTest MethodAnalysis TimePerformed AtPathologist SignatureHepatitis C Antibody AjpnuwwjfxhAufxrbekgjg46/27/2025 4:38 PM CSTUU LABORATORYComment: A nonreactive screening [...] RIGHT UPPER LIMB / Unknown Venipuncture / Kdwzorr2310/13/2025 1:34 PM CST10/13/2025 1:39 PM NURSERYPERSON Narrative Authorizing ProviderResult TypeResult StatusMethodist Rehabilitation Centerelizabeth Jean [facility] BLOOD ORDERABLESFinal ResultPerforming OrganizationAddressCity/State/ZIP CodePhone Number [facility] [place] [facility] [address] [facility], [address] * Hepatitis B surface antigen (10/13/2025 1:34 PM NURSERYPERSON)ComponentValueRef Range Test MethodAnalysis TimePerformed AtPathologist SignatureHepatitis B Surface ArvgzmaBmsgdkzidmqAcialcltqfc44/27/2025 4:38 PM CSTUU LABORATORYComment: Assay performance characteristics have not been established for testing of newborns. Specimen (Source)Anatomical Location / LateralityCollection Method / Volume Collection TimeReceived TimeBloodSTRUCTURE OF RIGHT UPPER LIMB / Unknown Venipuncture / Tatdved7510/13/2025 1:34 PM CST10/13/2025 1:39 PM NURSERYPERSON Narrative Authorizing ProviderResult TypeResult StatusGregelizabeth Jean [facility] BLOOD ORDERABLESFinal ResultPerforming OrganizationAddressCity/State/ZIP CodePhone Number LABORATORY [facility] [facility] [address] [facility], [address] * Hepatitis B core antibody (10/13/2025 1:34 PM NURSERYPERSON)ComponentValueRef RangeTest MethodAnalysis TimePerformed AtPathologist SignatureHepatitis B Core Antibody DetchWemlspqpgunYtpvinfniwp49/27/2025 4:38 PM CSTUU LABORATORYComment: Nonreactive hepatitis B [...] RIGHT UPPER LIMB / Unknown Venipuncture / Zdqrvzf8010/13/2025 1:34 PM CST10/13/2025 1:39 PM NURSERYPERSON Narrative Authorizing ProviderResult TypeResult StatusGerman Hospitaln [facility] BLOOD ORDERABLESFinal ResultPerforming OrganizationAddressCity/State/ZIP CodePhone Number [facility] [place] [facility] [address] [facility], [address] * Hepatitis A antibody IgM (10/13/2025 1:34 PM NURSERYPERSON)ComponentValueRef RangeTest MethodAnalysis TimePerformed AtPathologist SignatureHepatitis A Antibody IgM LgoyheamkaaZbutflexxgr52/27/2025 4:38 PM CSTUU LABORATORYComment: Nonreactive results indicate either inadequate or delayed anti-HAV IgM response after known exposure to HAV or absence of acute or recent hepatitis A. Assay performance characteristics have not been established for immunocompromised or immunosuppressed patients. Specimen (Source)Anatomical Location / LateralityCollection Method / Volume Collection TimeReceived TimeBloodSTRUCTURE OF RIGHT UPPER LIMB / Unknown Venipuncture / Vmokcyc8210/13/2025 1:34 PM CST10/13/2025 1:39 PM NURSERYPERSON Narrative Authorizing ProviderResult TypeResult StatusGerman Hospitaln [facility] BLOOD ORDERABLESFinal ResultPerforming OrganizationAddressCity/State/ZIP CodePhone Number [facility] [place] [facility] [address] [facility], [address] [phone] * Ferritin (10/13/2025 1:34 PM NURSERYPERSON) Only the most recent of2 resultswithin the time period is included. ComponentValueRef RangeTest MethodAnalysis TimePerformed AtPathologist Signature Onmozysv9089 - 409 ng/mL10/13/2025 4:24 PM CSTUU LABORATORYSpecimen (Source) Anatomical Location / LateralityCollection Method / VolumeCollection Time Received TimeBloodSTRUCTURE OF RIGHT UPPER LIMB / UnknownVenipuncture / Unknown 10/13/2025 1:34 PM CST10/13/2025 1:39 PM NURSERYPERSON Narrative Authorizing ProviderResult TypeResult StatusGregory Ted MDLAB - BLOOD ORDERABLESFinal ResultPerforming OrganizationAddressCity/State/ZIP CodePhone Number LABORATORY [facility] [address] [facility], [address] [place] [address] * (ABNORMAL) F Actin EIA with reflex (10/13/2025 1:34 PM NURSERYPERSON)ComponentValueRef RangeTest MethodAnalysis TimePerformed AtPathologist SignatureF-Actin (Smooth Muscle) Ab, IgG by ELISA20(H)0 - 19 Units10/15/2025 12:36 PM [facility] Comment: REFERENCE INTERVAL: F-Actin (Smooth Muscle) Antibody, [...] suspicion for AIH is strong. Performed By: [facility] [address] [place] [address] Judicial Law Clerk: Georges Ohara MD, PhD CLIA Number: [id number] Specimen (Source)Anatomical Location / LateralityCollection Method / Volume Collection TimeReceived TimeBloodSTRUCTURE OF RIGHT UPPER LIMB / Unknown Venipuncture / Vcslvmc7710/13/2025 1:34 PM CST10/13/2025 1:38 PM NURSERYPERSON Narrative Authorizing ProviderResult TypeResult StatusGerman Hospitalalexandra US - BLOOD ORDERABLESFinal ResultPerforming OrganizationAddressCity/State/ZIP CodePhone Number [facility] [address] [place] [phone] [phone] * Ceruloplasmin (10/13/2025 1:34 PM NURSERYPERSON)ComponentValueRef RangeTest Method Analysis TimePerformed AtPathologist RcgifuhtfSmeyniisvpnhu8313 - 60 mg/dL 10/15/2025 10:51 AM [facility]/PROT/ENDOSpecimen (Source)Anatomical Location / LateralityCollection Method / VolumeCollection TimeReceived Time BloodSTRUCTURE OF RIGHT UPPER LIMB / UnknownVenipuncture / Qwtdezg7810/13/2025 1:34 PM CST10/13/2025 1:38 PM NURSERYPERSON Narrative Authorizing ProviderResult TypeResult StatusGregthe jewish hospital Ted US - BLOOD ORDERABLESFinal ResultPerforming OrganizationAddressCity/State/ZIP CodePhone Number [facility]Prot[facility]Endo [address] [facility] Building, [address] * AFP tumor marker (10/13/2025 1:34 PM NURSERYPERSON)ComponentValueRef RangeTest Method Analysis TimePerformed AtPathologist SignatureAFP tumor marker2.9<=8.3 ng/mL 10/13/2025 4:24 PM CSTUU LABORATORYSpecimen (Source)Anatomical Location / LateralityCollection Method / VolumeCollection TimeReceived TimeBloodSTRUCTURE OF RIGHT UPPER LIMB / UnknownVenipuncture / Wgzpdme9010/13/2025 1:34 PM NURSERYPERSON 10/13/2025 1:39 PM NURSERYPERSON Narrative U LABORATORY - 10/13/2025 4:24 PM NURSERYPERSON This result is obtained using the Luis A Elecs[employer] AFP method on the kareen e801 immunoassay analyzer. Results obtained with different assay methods or kits cannot be used interchangeably. Reference ranges apply to non- females only. Authorizing ProviderResult TypeResult StatusGregory Ted LAB - BLOOD ORDERABLESFinal ResultPerforming OrganizationAddressCity/State/ZIP CodePhone Number LABORATORY [facility] [address] [facility], [address] [place] [address] * US Abdomen Complete w Doppler Complete (10/13/2025 10:55 AM NURSERYPERSON)Anatomical RegionLateralityModalityAbdomen/Pelvis, VascularUltrasoundSpecimen (Source) Anatomical Location / LateralityCollection Method / VolumeCollection Time Received Time10/13/2025 10:55 AM NURSERYPERSON Impressions 10/13/2025 2:53 PM NURSERYPERSON IMPRESSION: 1. ??Cirrhosis, with features of portal hypertension including splenomegaly and a small amount of ascites. 2. ??Reversal of flow throughout the portal veins, as can be seen with portal hypertension. The liver Doppler exam is otherwise normal. 3. ??Cholelithiasis. No evidence of acute cholecystitis. 4. ??No biliary ductal dilation. 5. ??Normal kidneys, without hydronephrosis. Narrative 10/13/2025 2:53 PM NURSERYPERSON EXAM: US ABDOMEN COMPLETE WITH DOPPLER COMPLETE LOCATION: [facility] DATE: 10/13/2025 INDICATION: Evaluate for common [...] US ABDOMEN COMPLETE WITH DOPPLER COMPLETE LOCATION: [facility] DATE: 10/13/2025 INDICATION: Evaluate for common [...] Normal kidneys, without hydronephrosis. Authorizing ProviderResult TypeResult Vanessa Sams MDDarin US ORDERABLES Final Result * Acute hepatitis panel (10/13/2025 5:43 AM NURSERYPERSON)ComponentValueRef RangeTest MethodAnalysis TimePerformed AtPathologist SignatureHepatitis A Antibody IgM FzgfdmhebvfKtawshlcdho41/27/2025 11:06 AM CSTUU LABORATORYComment: Nonreactive results indicate either inadequate or delayed anti-HAV IgM response after known exposure to HAV or absence of acute or recent hepatitis A. Assay performance characteristics have not been established for immunocompromised or immunosuppressed patients. Hepatitis B Core Antibody FqFUwkvwymcguaEofulfkaqnn17/27/2025 11:06 AM CSTUU LABORATORYComment: A nonreactive result suggests lack of recent exposure to the virus in the preceding 6 months. Assay performance characteristics have not been established in patients under 21, women, or in populations of immunocompromised or immunosuppressed patients. This assay has not been FDA Licensed for the screening of blood, plasma, and tissue donors. Hepatitis C LaajzfepDwiabkdntxvNdvgcnlcpoz90/27/2025 11:06 AM [facility] Comment: A nonreactive [...] immunocompromised or immunosuppressed patients. Hepatitis B Surface AxlvejuUlpaqjcmrukNaflanbpdci99/27/2025 11:06 AM CSTUU LABORATORYComment: Assay performance characteristics have not been established for testing of newborns. Specimen (Source)Anatomical Location / LateralityCollection Method / Volume Collection TimeReceived TimeBloodBLOOD SPECIMEN / UnknownVenipuncture / Unknown 10/13/2025 5:43 AM CST10/13/2025 6:19 AM NURSERYPERSON Narrative Authorizing ProviderResult TypeResult Vanessa Lorenzn MDLAB - BLOOD ORDERABLESFinal ResultPerforming OrganizationAddressCity/State/ZIP CodePhone Number [facility] LABORATORY [facility] [address] [facility] [address], [address] [place] [address] * EKG 12-lead, tracing only (10/13/2025 2:01 AM NURSERYPERSON)ComponentValueRef RangeTest MethodAnalysis TimePerformed AtPathologist SignatureSystolic Blood Pressure mmHgRADIOLOGY RESULTSDiastolic Blood PressuremmHgRADIOLOGY RESULTSVentricular Mlcs20XRBYQYIVUCFU RESULTSAtrial Jgbh75TQYPZZEIZKIB RESULTSPR Nlycsnpn396mr RADIOLOGY RESULTSQRS Rpnnapca199nqCBDIVLVOK JWRGLAJCH006voSGUIDOKMM RESULTSQTc 505msRADIOLOGY RESULTSP Slil65kmmhdtpYUHTUESZV RESULTSR IUXD402wwzitax RADIOLOGY RESULTST Ijmz73uhmwonlMOMUOPPSH RESULTSInterpretation ECGSinus rhythm Right axis deviation Prolonged QT Abnormal ECG When compared with ECG of 16-May-2023 17:04, No significant change was found Confirmed by SEE ED PROVIDER NOTE FOR, ECG INTERPRETATION (4000), senior technical editor LASHELL ENGLISH ([id number]) on 10/14/2025 9:41:16 AM RADIOLOGY RESULTSSpecimen (Source)Anatomical Location / LateralityCollection Method / VolumeCollection TimeReceived Time10/13/2025 2:01 AM CST10/14/2025 9:41 AM NURSERYPERSON Narrative Authorizing ProviderResult TypeResult StatusKatie Messer DOHARMONY ORDERABLES Edited Result - FinalPerforming OrganizationAddressCity/State/ZIP CodePhone Number RADIOLOGY RESULTS * Abd/pelvis CT, IV contrast only TRAUMA / AAA (10/13/2025 1:39 AM NURSERYPERSON) Anatomical RegionLateralityModalityAbdomen/Pelvis, SUBRAD CT BODY, UMP CT ABDOMEN PELVIS, RAD CTComputed TomographySpecimen (Source)Anatomical Location / LateralityCollection Method / VolumeCollection TimeReceived Time10/13/2025 1:39 AM NURSERYPERSON Impressions 10/13/2025 1:50 AM NURSERYPERSON IMPRESSION: 1. ??Cirrhosis with marked splenomegaly and scattered ascites in the abdomen and pelvis. 2. ??Gallstones. 3. ??Nonobstructing renal stones. Narrative 10/13/2025 1:50 AM NURSERYPERSON EXAM: CT ABDOMEN PELVIS W CONTRAST LOCATION: [facility] DATE: 10/13/2025 INDICATION: worsening ascites jaundice [...] EXAM: CT ABDOMEN PELVIS W CONTRAST LOCATION: [facility] DATE: 10/13/2025 INDICATION: worsening ascites jaundice [...] 3. Nonobstructing renal stones. Authorizing ProviderResult TypeResult StatusKatie Messer [facility] CT ORDERABLESFinal Result * (ABNORMAL) Glucose by meter (10/13/2025 12:14 AM NURSERYPERSON)ComponentValueRef Range Test MethodAnalysis TimePerformed AtPathologist SignatureGLUCOSE BY METER POCT 161(H)70 - 99 mg/dL10/13/2025 12:21 AM [facility] LABORATORY POCSpecimen (Source) Anatomical Location / LateralityCollection Method / VolumeCollection Time Received TimeBlood, CapillaryBLOOD SPECIMEN / Laolnva1710/13/2025 12:14 AM NURSERYPERSON 10/13/2025 12:21 AM NURSERYPERSON Narrative Authorizing ProviderResult TypeResult Dara Messer [facility] POCTFinal ResultPerforming OrganizationAddressCity/State/ZIP CodePhone Number LABORATORY [facility] [address] [facility] Lab (1st floor, no room number) [place] [address], [facility] * (ABNORMAL) CBC with platelets and differential (10/13/2025 12:06 AM NURSERYPERSON) Only the most recent of2 resultswithin the time period is included. ComponentValueRef RangeTest MethodAnalysis TimePerformed AtPathologist Signature WBC Count7.184.00 - 11.00 10e3/uL10/13/2025 12:29 AM [facility] LABORATORYRBC Count 3.45(L)4.40 - 5.90 10e6/uL10/13/2025 12:29 AM [facility] LABORATORYHemoglobin8.0(L) 13.3 - 17.7 g/dL10/13/2025 12:29 AM [facility] NQEZZVQPVBRsubumkmfv38.6(L)40.0 - 53.0 %10/13/2025 12:29 AM [facility] UVSFPXPUXEWOF36.1(L)78.0 - 100.0 fL10/13/2025 12:29 AM [facility] YXZARTCLRWNQR39.2(L)26.5 - 33.0 pg10/13/2025 12:29 AM [facility] MCHC30.1(L)31.5 - 36.5 g/dL10/13/2025 12:29 AM [facility] IJSCBAHSIUAOB03.1(H)10.0 - 15.0 %10/13/2025 12:29 AM [facility] LABORATORYPlatelet Iqncy560(L)150 - 450 10e3/uL 10/13/2025 12:29 AM [facility]% Ohjcaybotkm84.5%10/13/2025 12:29 AM [facility]% Atpuvrhnedf60.3%10/13/2025 12:29 AM [facility]% Dqqfespnz68.3% 10/13/2025 12:29 AM [facility]% Eosinophils6.7%10/13/2025 12:29 AM [facility]% Basophils0.8%10/13/2025 12:29 AM [facility]% Immature Granulocytes0.4%10/13/2025 12:29 AM [facility] LABORATORYNRBCs per 100 WBC0.0<1.0 /2668510/13/2025 12:29 AM [facility] LABORATORYAbsolute Neutrophils4.771.60 - 8.30 10e3/uL10/13/2025 12:29 AM [facility] LABORATORYAbsolute Lymphocytes1.100.80 - 5.30 10e3/uL10/13/2025 12:29 AM [facility] LABORATORYAbsolute Monocytes0.740.00 - 1.30 10e3/uL10/13/2025 12:29 AM [facility] LABORATORYAbsolute Eosinophils0.480.00 - 0.70 10e3/uL10/13/2025 12:29 AM [facility] LABORATORYAbsolute Basophils0.060.00 - 0.20 10e3/uL10/13/2025 12:29 AM [facility] LABORATORYAbsolute Immature Granulocytes0.03 <=0.40 10e3/uL10/13/2025 12:29 AM [facility] LABORATORYAbsolute NRBCs<0.0310e3/uL 10/13/2025 12:29 AM [facility] LABORATORYSpecimen (Source)Anatomical Location / LateralityCollection Method / VolumeCollection TimeReceived TimeBloodBLOOD SPECIMEN / UnknownVenipuncture / Okgjgwk3810/13/2025 12:06 AM CST10/13/2025 12:08 AM NURSERYPERSON Narrative Authorizing ProviderResult TypeResult StatusLinike JEFFERSONAB - BLOOD ORDERABLESFinal ResultPerforming OrganizationAddressCity/State/ZIP CodePhone Number [facility] [address] [facility] Lab (1st floor, no room number) [place] [address], [facility] * Magnesium (Limited Occurrences) (10/13/2025 12:06 AM NURSERYPERSON)ComponentValueRef RangeTest MethodAnalysis TimePerformed AtPathologist SignatureMagnesium1.91.7 - 2.3 mg/dL10/13/2025 1:52 AM [facility] LABORATORYSpecimen (Source)Anatomical Location / LateralityCollection Method / VolumeCollection TimeReceived Time BloodBLOOD SPECIMEN / UnknownVenipuncture / Xcklmxa8810/13/2025 12:06 AM NURSERYPERSON 10/13/2025 12:08 AM NURSERYPERSON Narrative Authorizing ProviderResult TypeResult StatusLindsleigh JEFFERSONAB - BLOOD ORDERABLESFinal ResultPerforming OrganizationAddressCity/State/ZIP CodePhone Number [facility] [address] Lab (1st floor, no room number) [place] [address], [facility] * (ABNORMAL) INR (10/13/2025 12:06 AM NURSERYPERSON) Only the most recent of2 resultswithin the time period is included. ComponentValueRef RangeTest MethodAnalysis TimePerformed AtPathologist Signature INR1.84(H)0.85 - 1.15112/14/2024 12:22 AM [facility] XXVWPNMGJMRH30.9(H)11.8 - 14.8 Xgvjbtn0610/13/2025 12:22 AM [facility] LABORATORYSpecimen (Source)Anatomical Location / LateralityCollection Method / VolumeCollection TimeReceived TimeBloodBLOOD SPECIMEN / UnknownVenipuncture / Zymkxef1810/13/2025 12:06 AM CST10/13/2025 12:08 AM NURSERYPERSON Narrative Authorizing ProviderResult TypeResult StatusLindsleigh Messer DOLAB - BLOOD ORDERABLESFinal ResultPerforming OrganizationAddressCity/State/ZIP CodePhone Number [facility] [address] Lab (1st floor, no room number) [place] [phone] [place] [address] * (ABNORMAL) Lipase (10/13/2025 12:06 AM NURSERYPERSON) Only the most recent of2 resultswithin the time period is included. ComponentValueRef RangeTest MethodAnalysis TimePerformed AtPathologist Signature Potpzq764(H)13 - 60 U/L112/14/2024 12:27 AM [facility] LABORATORYSpecimen (Source) Anatomical Location / LateralityCollection Method / VolumeCollection Time Received TimeBloodBLOOD SPECIMEN / UnknownVenipuncture / Oowbrur5410/13/2025 12:06 AM CST10/13/2025 12:08 AM NURSERYPERSON Narrative Authorizing ProviderResult TypeResult StatusLindsleigh Messer DOLAB - BLOOD ORDERABLESFinal ResultPerforming OrganizationAddressCity/State/ZIP CodePhone Number [facility] Lab [address] Lab (1st floor, no room number) [place] [phone] [place] [address] * (ABNORMAL) Bilirubin direct (10/13/2025 12:06 AM NURSERYPERSON) Only the most recent of2 resultswithin the time period is included. ComponentValueRef RangeTest MethodAnalysis TimePerformed AtPathologist Signature Bilirubin Tnuzbn92.99(H)0.00 - 0.30 mg/dL10/13/2025 1:21 AM [facility] Comment:As of 25, reference ranges and trending lines may vary depending on the testing location.Specimen (Source)Anatomical Location / Laterality Collection Method / VolumeCollection TimeReceived TimeBloodBLOOD SPECIMEN / UnknownVenipuncture / Wcbcsum5110/13/2025 12:06 AM CST10/13/2025 12:08 AM NURSERYPERSON Narrative Authorizing ProviderResult TypeResult StatusLindsey Arsalan Messer DOLAB - BLOOD ORDERABLESFinal ResultPerforming OrganizationAddressCity/State/ZIP CodePhone Number [facility] Lab [address] Lab (1st floor, no room number) [place] [address] * Ethanol Level Blood (10/13/2025 12:06 AM NURSERYPERSON) Only the most recent of2 resultswithin the time period is included. ComponentValueRef RangeTest MethodAnalysis TimePerformed AtPathologist Signature Ethanol Level Blood<0.01<=0.01 g/dL10/13/2025 12:27 AM [facility] LABORATORYSpecimen (Source)Anatomical Location / LateralityCollection Method / VolumeCollection TimeReceived TimeBloodBLOOD SPECIMEN / UnknownVenipuncture / Dokkuwk5310/13/2025 12:06 AM CST10/13/2025 12:08 AM NURSERYPERSON Narrative Authorizing ProviderResult TypeResult StatusLinike Messer DOLAB - BLOOD ORDERABLESFinal ResultPerforming OrganizationAddressCity/State/ZIP CodePhone Number [facility] [address] Lab (1st floor, no room number) [place] [phone] * (ABNORMAL) UA with Microscopic reflex to Culture (10/09/2025 4:03 PM NURSERYPERSON) ComponentValueRef RangeTest MethodAnalysis TimePerformed AtPathologist SignatureColor UrineDark Yellow(A)Colorless, Straw, Light Yellow, Yellow 10/09/2025 4:32 PM [facility] LABORATORYAppearance NqvyhAwwkeRntte98/23/2025 4:32 PM [facility] LABORATORYGlucose UrineNegativeNegative mg/dL10/09/2025 4:32 PM [facility] LABORATORYBilirubin UrineLarge(A)Fuwrwban46/23/2025 4:32 PM [facility] Ketones UrineNegativeNegative mg/dL10/09/2025 4:32 PM [facility] LABORATORYSpecific [place] Urine1.0121.003 - 1.5757710/09/2025 4:32 PM [facility] LABORATORYBlood Urine NuuqatizXosihptf60/23/2025 4:32 PM [facility] LABORATORYpH Urine6.05.0 - 7.0 10/09/2025 4:32 PM [facility] LABORATORYProtein Albumin UrineNegativeNegative mg/dL 10/09/2025 4:32 PM [facility] LABORATORYUrobilinogen Urine4.0(A)Normal mg/dL 10/09/2025 4:32 PM [facility] LABORATORYNitrite GeihuKlyubkzwAqikrfgu88/23/2025 4:32 PM [facility] LABORATORYLeukocyte Esterase UrineTrace(A)Glwwzbeg50/23/2025 4:32 PM [facility] LABORATORYBacteria UrineFew(A)None Seen /HPF10/09/2025 4:32 PM [facility] LABORATORYMucus UrinePresent(A)None Seen /LPF112/10/2024 4:32 PM [facility] LABORATORYRBC Urine1<=2 /HPF10/09/2025 4:32 PM [facility] LABORATORYWBC Urine8(H) <=5 /HPF10/09/2025 4:32 PM [facility] LABORATORYSquamous Epithelials Urine3(H)<=1 /HPF10/09/2025 4:32 PM [facility] LABORATORYSpecimen (Source)Anatomical Location / LateralityCollection Method / VolumeCollection TimeReceived TimeUrineMID- STREAM URINE SPECIMEN / UnknownNon-blood Collection / Nvttylx0810/09/2025 4:03 PM CST10/09/2025 4:17 PM NURSERYPERSON Narrative LABORATORY - 10/09/2025 4:32 PM NURSERYPERSON Urine Culture not indicated Authorizing ProviderResult TypeResult StatusElan Clemencia VELASCOLAB - URINE ORDERABLESFinal ResultPerforming OrganizationAddressCity/State/ZIP CodePhone Number [facility] [address] [facility] Lab (1st floor, no room number) [place] [address], [facility] * US Paracentesis with Albumin (10/09/2025 3:24 PM NURSERYPERSON)Anatomical Region LateralityModalityAbdomen/PelvisUltrasoundSpecimen (Source)Anatomical Location / LateralityCollection Method / VolumeCollection TimeReceived Time10/09/2025 3:24 PM CST10/09/2025 3:25 PM NURSERYPERSON Impressions 10/09/2025 3:56 PM NURSERYPERSON IMPRESSION: 1. ??Status post ultrasound-guided paracentesis. Reference CPT Code: 54360 Narrative 10/09/2025 3:56 PM NURSERYPERSON EXAM: 1. PARACENTESIS 2. ULTRASOUND GUIDANCE LOCATION: [facility] DATE: 10/09/2025 INDICATION: Ascites. PROCEDURE: Informed consent obtained. Time out performed. The abdomen was prepped and draped in a sterile fashion. 10 mL of 1% lidocaine was infused into local soft tissues. A 5 Mongolian catheter system was introduced into the abdominal ascites under ultrasound guidance. 1.2 liters of clear fluid were removed and sent to lab if requested. Patient tolerated procedure well. Ultrasound imaging was obtained and placed in the patient's permanent medical record. Procedure Note David Lomeli MD - 10/09/2025 EXAM: 1. PARACENTESIS 2. ULTRASOUND GUIDANCE LOCATION: [facility] DATE: 10/09/2025 INDICATION: Ascites. PROCEDURE: Informed consent obtained. Time out performed. The abdomen wasprepped and draped in a sterile fashion. 10 mL of 1% lidocaine was infusedinto local soft tissues. A 5 Mongolian catheter system was introduced intothe abdominal ascites under ultrasound guidance. 1.2 liters of clear fluid were removed and sent to lab if requested. Patient tolerated procedure well. Ultrasound imaging was obtained and placed in the patient's permanentmedical record. IMPRESSION: 1. Status post ultrasound-guided paracentesis. Reference CPT Code: 94395 Authorizing ProviderResult TypeResult StatusZenon DAO US ORDERABLES Final Result * Differential Body Fluid (10/09/2025 3:11 PM NURSERYPERSON)ComponentValueRef RangeTest MethodAnalysis TimePerformed AtPathologist Signature% Ayhqfdtruxc48% NAZIA 10/09/2025 6:07 PM [facility]% Ogtncakmvrj06% NAZIA 10/09/2025 6:07 PM [facility]% Monocyte/Mufisyvbiev40% NAZIA 10/09/2025 6:07 PM [facility]% Lining Cells8% NAZIA 10/09/2025 6:07 PM [facility] LABORATORYAbsolute Neutrophils, Body Fluid37.4/uL NAZIA 10/09/2025 6:07 PM [facility] LABORATORYSpecimen (Source)Anatomical Location / LateralityCollection Method / VolumeCollection TimeReceived TimeAscites Fluid FLUID SPECIMEN / UnknownNon-blood Collection / Kdkphkv7410/09/2025 3:11 PM NURSERYPERSON 10/09/2025 3:41 PM NURSERYPERSON Narrative LABORATORY - 10/09/2025 6:07 PM NURSERYPERSON No reference ranges have been established. This result should be interpreted in the context of the patient's clinical condition and compared to simultaneous measurement in the patient's blood. Authorizing ProviderResult TypeResult StatusZenon Khanna MALAB - BODY FLUIDS ORDERABLESFinal ResultPerforming OrganizationAddressCity/State/ZIP CodePhone Number [facility] [address] [facility] (1st floor, no room number) [place] [address], [facility] * (ABNORMAL) Cell Count Body Fluid (10/09/2025 3:11 PM NURSERYPERSON)ComponentValueRef RangeTest MethodAnalysis TimePerformed AtPathologist SignatureColorYellow Colorless, Yellow NAZIA 10/09/2025 6:07 PM [facility] LABORATORYClarityHazy(A)Clear NAZIA 10/09/2025 6:07 PM [facility] LABORATORYCell Count Fluid ZrxcsfXtttronfeq22/23/2025 6:07 PM CST LABORATORYTotal Nucleated Trpih251/uL NAZIA 10/09/2025 6:07 PM [facility] LABORATORYSpecimen (Source)Anatomical Location / LateralityCollection Method / VolumeCollection TimeReceived TimeAscites Fluid FLUID SPECIMEN / UnknownNon-blood Collection / Dtmmfua5810/09/2025 3:11 PM NURSERYPERSON 10/09/2025 3:41 PM NURSERYPERSON Narrative LABORATORY - 10/09/2025 6:07 PM NURSERYPERSON No reference ranges have been established. This result should be interpreted in the context of the patient's clinical condition and compared to simultaneous measurement in the patient's blood. ?? Authorizing ProviderResult TypeResult StatusZenon Khanna MALAB - BODY FLUIDS ORDERABLESFinal ResultPerforming OrganizationAddressCity/State/ZIP CodePhone Number [facility] [address] [facility] Lab (1st floor, no room number) [place] [address], [facility] * Ascites Fluid Aerobic Bacterial Culture Routine Without Gram Stain (10/09/2025 3:11 PM NURSERYPERSON)ComponentValueRef RangeTest MethodAnalysis TimePerformed At Pathologist SignatureCultureNo Yyietu6210/14/2025 7:23 AM CST[facility] IDD LABORATORY Specimen (Source)Anatomical Location / LateralityCollection Method / Volume Collection TimeReceived TimeAscites FluidSPECIMEN FROM PERITONEUM / Unknown Non-blood Collection / Umisyhz7810/09/2025 3:11 PM CST10/09/2025 3:41 PM NURSERYPERSON Narrative Authorizing ProviderResult TypeResult StatusElan Clemencia US - MICRO GENERAL ORDERABLESFinal ResultPerforming OrganizationAddressCity/State/ZIP Code Phone Number [facility] Inf. Diseases Di[facility]. Lab [address] [facility], [address] [place] [address], [facility] * Protein fluid (10/09/2025 3:11 PM NURSERYPERSON)ComponentValueRef RangeTest Method Analysis TimePerformed AtPathologist SignatureProtein Fluid SourcePeritoneum 10/09/2025 4:45 PM [facility] LABORATORYProtein Total Fluid0.5g/dL10/09/2025 4:45 PM [facility] LABORATORYSpecimen (Source)Anatomical Location / LateralityCollection Method / VolumeCollection TimeReceived TimeAscites FluidFLUID SPECIMEN / UnknownNon-blood Collection / Abvdazl5810/09/2025 3:11 PM CST10/09/2025 3:41 PM NURSERYPERSON Narrative RH LABORATORY - 10/09/2025 4:45 PM NURSERYPERSON No reference ranges have been established. This result should be interpreted in the context of the patient's clinical condition and compared to simultaneous measurement in the patient's blood. This is a lab developed test. It has not been cleared or approved by the FDA. FDA clearance is not required for clinical use. Authorizing ProviderResult TypeResult StatusElan Clemencia US - BODY FLUIDS ORDERABLESFinal ResultPerforming OrganizationAddressCity/State/ZIP CodePhone Number LABORATORY [facility] Lab [address] [facility] Lab (1st floor, no room number) [place] [address], [facility] * Albumin fluid (10/09/2025 3:11 PM NURSERYPERSON)ComponentValueRef RangeTest Method Analysis TimePerformed AtPathologist SignatureAlbumin Fluid SourcePeritoneum 10/09/2025 4:45 PM [facility] LABORATORYAlbumin fluid0.4g/dL10/09/2025 4:45 PM NURSERYPERSON RH LABORATORYSpecimen (Source)Anatomical Location / LateralityCollection Method / VolumeCollection TimeReceived TimeAscites FluidFLUID SPECIMEN / UnknownNon-blood Collection / Ehgptps2610/09/2025 3:11 PM CST10/09/2025 3:41 PM NURSERYPERSON Narrative RH LABORATORY - 10/09/2025 4:45 PM NURSERYPERSON No reference ranges have been established. This result should be interpreted in the context of the patient's clinical condition and compared to simultaneous measurement in the patient's blood. This is a lab developed test. It has not been cleared or approved by the FDA. FDA clearance is not required for clinical use. Authorizing ProviderResult TypeResult StatusZenon Khanna MDLAB - BODY FLUIDS ORDERABLESFinal ResultPerforming OrganizationAddressCity/State/ZIP CodePhone Number [facility] Lab [address] Lab (1st floor, no room number) [place] [address], [facility] * Extra Red Top Tube (10/09/2025 1:15 PM NURSERYPERSON)ComponentValueRef RangeTest Method Analysis TimePerformed AtPathologist SignatureHold OrkgswuwUVH63/23/2025 2:46 PM [facility] LABORATORYSpecimen (Source)Anatomical Location / LateralityCollection Method / VolumeCollection TimeReceived TimeBloodSTRUCTURE OF LEFT UPPER LIMB / UnknownVenipuncture / Nvrticb7010/09/2025 1:15 PM CST10/09/2025 1:36 PM NURSERYPERSON Narrative Authorizing ProviderResult TypeResult StatusZenon US - BLOOD ORDERABLESFinal ResultPerforming OrganizationAddressty/State/ZIP CodePhone Number [facility] [address] Lab (1st floor, no room number) [place] [address], [facility] * Extra Blue Top Tube (10/09/2025 1:15 PM NURSERYPERSON)ComponentValueRef RangeTest Method Analysis TimePerformed AtPathologist SignatureHold ScqaalllQDC52/23/2025 2:46 PM [facility] LABORATORYSpecimen (Source)Anatomical Location / LateralityCollection Method / VolumeCollection TimeReceived TimeBloodSTRUCTURE OF LEFT UPPER LIMB / UnknownVenipuncture / Znxmgfo8310/09/2025 1:15 PM CST10/09/2025 1:36 PM NURSERYPERSON Narrative Authorizing ProviderResult TypeResult StatusZenon Khanna MDLAB - BLOOD ORDERABLESFinal ResultPerforming OrganizationAddressCity/State/ZIP CodePhone Number [facility] [address] Lab (1st floor, no room number) [place] [address], [facility] * (ABNORMAL) Lipid panel reflex to direct LDL Fasting (09/12/2025 9:42 AM NURSERYPERSON) ComponentValueRef RangeTest MethodAnalysis TimePerformed AtPathologist JvbknknltHalahzzeyod976<200 mg/dL09/12/2025 10:37 PM [facility]ST[facility] LABORATORY Psfmpxikfecfq939<150 mg/dL09/12/2025 10:37 PM CSTUU LABORATORYDirect Measure HDL16(L)>=40 mg/dL09/12/2025 10:37 PM CSTUU LABORATORYLDL Cholesterol Cvlufzorrw73<100 mg/dL09/12/2025 10:37 PM CSTUU LABORATORYComment:LDL calculated using the Friedewald equation.Non HDL Cgzksptssyq519<130 mg/dL 09/12/2025 10:37 PM CSTUU LABORATORYPatient Fasting > 8hrs?Yes09/12/2025 10:37 PM CSTUU LABORATORYSpecimen (Source)Anatomical Location / Laterality Collection Method / VolumeCollection TimeReceived TimeBloodBLOOD SPECIMEN / UnknownVenipuncture / Dizgpmo4709/12/2025 9:42 AM CST09/12/2025 9:42 AM NURSERYPERSON Narrative [facility] LABORATORY - 09/12/2025 10:37 PM NURSERYPERSON Cholesterol Desirable: < 200 mg/dL Borderline High: [...] - BLOOD ORDERABLESFinal ResultPerforming OrganizationAddressCity/State/ZIP CodePhone Number U LABORATORY [facility] [address] [facility], [address] [place] [address], [facility] * (ABNORMAL) Comprehensive metabolic panel (09/12/2025 9:42 AM NURSERYPERSON)Component ValueRef RangeTest MethodAnalysis TimePerformed AtPathologist SignatureSodium 881233 - 145 mmol/L111/12/2024 10:37 PM CSTUU LABORATORYPotassium3.0(L)3.4 - 5.3 mmol/L111/12/2024 10:37 PM CSTUU LABORATORYCarbon Dioxide (CO2)2622 - 29 mmol/L111/12/2024 10:37 PM CSTUU LABORATORYAnion Vri469 - 15 mmol/L111/12/2024 10:37 PM CSTUU LABORATORYUrea Ncgywsjf36.16.0 - 20.0 mg/dL09/12/2025 10:37 PM CST[facility] LABORATORYCreatinine0.890.67 - 1.17 mg/dL09/12/2025 10:37 PM CSTUU LABORATORYGFR Estimate>90>60 mL/min/1.02a77609/12/2025 10:37 PM [facility] Comment:eGFR calculated using 2020 CKD-EPI equation.Calcium9.08.8 - 10.4 mg/dL 09/12/2025 10:37 PM CSTUU XBNNJWBDIYRggwbbzu44877 - 107 mmol/L111/12/2024 10:37 PM [facility] LSZRPNWXMLRkpzunw006(H)70 - 99 mg/dL09/12/2025 10:37 PM [facility]ST[facility] LABORATORYAlkaline Lguvkfbugfj574(H)40 - 150 U/L111/12/2024 10:37 PM CSTUU VEIUFAAAFHZYZ99(H)0 - 45 U/L111/12/2024 10:37 PM CSTUU LDNMNCDSXUJMH192 - 70 U/L111/12/2024 10:37 PM [facility] LABORATORYProtein Total7.06.4 - 8.3 g/dL 09/12/2025 10:37 PM [facility] LABORATORYAlbumin3.1(L)3.5 - 5.2 g/dL09/12/2025 10:37 PM CST[facility] LABORATORYBilirubin Total5.5(H)<=1.2 mg/dL09/12/2025 10:37 PM CSTUU LABORATORYPatient Fasting > 8hrs?Yes09/12/2025 10:37 PM [facility] LABORATORY Specimen (Source)Anatomical Location / LateralityCollection Method / Volume Collection TimeReceived TimeBloodBLOOD SPECIMEN / UnknownVenipuncture / Dtbkgog2609/12/2025 9:42 AM CST09/12/2025 9:42 AM NURSERYPERSON Narrative Authorizing ProviderResult TypeResult StatusHaapril Prietowaldemar MDLAB - BLOOD ORDERABLESFinal ResultPerforming OrganizationAddressCity/State/ZIP CodePhone Number U LABORATORY [facility] [address] [facility] [address] [facility], [address] [place] [address] * (ABNORMAL) Stool: occult blood (05/16/2023 9:00 PM CDT)ComponentValueRef Range Test MethodAnalysis TimePerformed AtPathologist SignatureOccult BloodPositive (A)Negative NAZIA 05/16/2023 9:08 PM CDTRH LABORATORYSpecimen (Source)Anatomical Location / LateralityCollection Method / VolumeCollection TimeReceived TimeStoolRECTAL CONTENTS / UnknownNon-blood Collection / Zhqgvzo6605/16/2023 9:00 PM CDT05/16/2023 9:04 PM CDT Narrative Authorizing ProviderResult TypeResult StatusFerris Yejayce DOLAB - STOOLS ORDERABLES Final ResultPerforming OrganizationAddressCity/State/ZIP CodePhone Number [facility] Lab [address] [facility] Lab (1st floor, no room number) [place] [address], [facility] [phone] * CT Chest (PE) Abdomen Pelvis w Contrast (05/16/2023 7:57 PM CDT)Anatomical RegionLateralityModalityChest, SUBRAD CT BODY, UMP CT CHEST, RAD CTComputed TomographySpecimen (Source)Anatomical Location / LateralityCollection Method / VolumeCollection TimeReceived Time05/16/2023 7:57 PM CDT Impressions 05/16/2023 8:25 PM CDT IMPRESSION: 1. ??No evidence for pulmonary emboli. 2. ??Mosaic attenuation pattern both lungs suggesting air trapping or small airways/vessel disease.No other findings for acute pulmonary disease. 3. ??Hepatomegaly and diffuse fatty infiltration of the liver with portal venous hypertension, including splenomegaly, recanalized umbilical vein and numerous collateral vessels in the central mesentery, unchanged. 4. ??No acute changes within the abdomen or pelvis. Narrative 05/16/2023 8:25 PM CDT EXAM: CT CHEST PE ABDOMEN PELVIS W CONTRAST LOCATION: [facility] DATE: 05/16/2023 INDICATION: chest pain, shortness of breath, dizziness, abdominal pain, GI bleed COMPARISON: CT abdomen and pelvis 01/31/2017 TECHNIQUE: CT chest pulmonary angiogram and routine CT abdomen pelvis with IV contrast. Arterial phase through the chest and venous phase through the abdomen and pelvis. Multiplanar reformats and MIPreconstructions were performed. Dose reduction techniques were used. CONTRAST: 85mL Isovue 370 FINDINGS: ANGIOGRAM CHEST: Pulmonary arteries are normal caliber and negative for pulmonary emboli. Thoracic aorta is negative for dissection. No CT evidence of right heart strain. LUNGS AND PLEURA: Mild mosaic attenuation pattern both lower lobes. Minimal atelectasis or scarringright middle lobe and lingula. No airspace infiltrates or pleural effusions. MEDIASTINUM/AXILLAE: No mediastinal or hilar adenopathy. CORONARY ARTERY CALCIFICATION: Mild. HEPATOBILIARY: Hepatomegaly measuring 21 cm in length, unchanged. Diffuse fatty infiltration of theliver. Recanalized small umbilical vein. PANCREAS: Normal. SPLEEN: Marked splenomegaly measuring 20 cm in length, unchanged. ADRENAL GLANDS: Normal. KIDNEYS/BLADDER: No renal calculi or hydronephrosis. BOWEL: No evidence for bowel obstruction. No bowel wall thickening or inflammatory changes. LYMPH NODES: Normal. VASCULATURE: Mild atherosclerotic disease abdominal aorta. Prominent varices within the central mesentery, unchanged. PELVIC ORGANS: Normal. No ascites. MUSCULOSKELETAL: Hypertrophic changes thoracic spine. Procedure Note Brenton Ngo MD - 05/16/2023 EXAM: CT CHEST PE ABDOMEN PELVIS W CONTRAST LOCATION: [facility] DATE: 05/16/2023 INDICATION: chest pain, shortness of breath, dizziness, abdominal pain, GIbleed COMPARISON: CT abdomen and pelvis 01/31/2017 TECHNIQUE: CT chest pulmonary angiogram and routine CT abdomen pelvis withIV contrast. Arterial phase through the chest and venous phase through theabdomen and pelvis. Multiplanar reformats and MIP reconstructions wereperformed. Dose reduction techniques were used. CONTRAST: 85mL Isovue 370 FINDINGS: ANGIOGRAM CHEST: Pulmonary arteries are normal caliber and negative forpulmonary emboli. Thoracic aorta is negative for dissection. No CTevidence of right heart strain. LUNGS AND PLEURA: Mild mosaic attenuation pattern both lower lobes.Minimal atelectasis or scarring right middle lobe and lingula. No airspaceinfiltrates or pleural effusions. MEDIASTINUM/AXILLAE: No mediastinal or hilar adenopathy. CORONARY ARTERY CALCIFICATION: Mild. HEPATOBILIARY: Hepatomegaly measuring 21 cm in length, unchanged. Diffusefatty infiltration of the liver. Recanalized small umbilical vein. PANCREAS: Normal. SPLEEN: Marked splenomegaly measuring 20 cm in length, unchanged. ADRENAL GLANDS: Normal. KIDNEYS/BLADDER: No renal calculi or hydronephrosis. BOWEL: No evidence for bowel obstruction. No bowel wall thickening or inflammatory changes. LYMPH NODES: Normal. VASCULATURE: Mild atherosclerotic disease abdominal aorta. Prominentvarices within the central mesentery, unchanged. PELVIC ORGANS: Normal. No ascites. MUSCULOSKELETAL: Hypertrophic changes thoracic spine. IMPRESSION: 1. No evidence for pulmonary emboli. 2. Mosaic attenuation pattern both lungs suggesting air trapping or small airways/vessel disease. No other findings for acute pulmonary disease. 3. Hepatomegaly and diffuse fatty infiltration of the liver with portalvenous hypertension, including splenomegaly, recanalized umbilical veinand numerous collateral vessels in the central mesentery, unchanged. 4. No acute changes within the abdomen or pelvis. Authorizing ProviderResult TypeResult StatusFerris Health system CT ORDERABLESFinal Result * HIV Antigen Antibody Combo (01/17/2017 4:40 AM CDT)ComponentValueRef RangeTest MethodAnalysis TimePerformed AtPathologist SignatureHIV Antigen Antibody ComboNonreactive HIV-1 p24 Ag & HIV-1/HIV-2 Ab Not Detected NRUNBRIGHTLOOK HOSPITALpecimen (Source)Anatomical Location / LateralityCollection Method / VolumeCollection TimeReceived Time01/17/2017 4:40 AM CDT01/17/2017 4:41 AM CDT Narrative Authorizing ProviderResult TypeResult StatusCherinet Jade US - BLOOD ORDERABLESFinal ResultPerforming OrganizationAddressCity/State/ZIP CodePhone Number [address] [address] from Last 3 Months or Most Recently Relevant to Health Maintenance Insurance * Guarantor: Richard Fonseca TypeRelation to PatientDate of BirthPhone Billing AddressPersonal/TyjzaiYhof1965 [address] [place] [address] * Guarantor: Richard Fonseca TypeRelation to PatientDate of BirthPhone Billing AddressPersonal/WxqsvcSqhw1965 [address] [place] [address] * Guarantor: Richard Fonseca TypeRelation to PatientDate of BirthPhone Billing AddressPersonal/XilcodDkzd1965 [address] [place] [address] * Guarantor: Richard Fonseca TypeRelation to PatientDate of BirthPhone Billing DezsdtvDwwqwyowuiDths1965 [address] [place] [address] Advance Directives For more information, please contact: [phone] * Full Code (Latest Code Status on File) Date ActivatedDate HymdkmzoofwPpdrydhf86/27/2025 3:07 AM10/14/2025 4:16 PMAll basic and advanced life-sustaining interventions are performed as appropriate QuestionAnswerCommentsCode status determined by:* Discussion with patient/ legal decision maker * Full Code Date ActivatedDate InactivatedComments05/19/2023 2:39 PM10/09/2025 12:31 PM QuestionAnswerCommentsCode status determined by:* Discussion with patient/ legal decision maker * Full Code Date ActivatedDate InactivatedComments05/16/2023 9:30 PM05/19/2023 2:39 PMAll basic and advanced life-sustaining interventions are performed as appropriateQuestion AnswerCommentsCode status determined by:* Unable to discuss and no AD/POLST on file; continue PREVIOUSLY ORDERED code status * Full Code Date ActivatedDate InactivatedComments02/13/2017 12:53 PM02/18/2017 4:17 PM * Full Code Date ActivatedDate InactivatedComments02/12/2017 3:10 PM02/13/2017 12:53 PM Care Teams Team MemberRelationshipSpecialtyStart DateEnd Date No Ref-Primary, Physician PCP - [facility]05/28/23 [facility] [address] [place] [address] PCP02/09/18 Abi Mcclellan MD [address] [place] [address] Assigned PCP09/09/25
--- OUTSIDE RECORDS SUMMARY | 2025-10-16 02:10 | XMS_ITS | Encounter Summary ---
Author Organization [facility] Address [address] [place] [address] Care Team Providers Care On Air Personality Name Role Phone [facility], [facility] Unavailable [phone] No Ref-Primary, Physician Primary Care Provider Abi Mcclellan MD Unavailable Encounter Details DateTypeDepartmentCare Team (Latest Contact Info)Jmaclwvgvne78/26/2025 Documentation Only [facility] [address] [facility] [address] [place] [address] Abi Mcclellan MD [address] [place] [address] Social History Tobacco UseTypesPacks/DayYears UsedDateSmoking Tobacco: JwwpxpOmwexitlbt4Ydcq: 05/06/1997Smokeless Tobacco: CurrentChewAlcohol UseStandard Drinks/WeekComments No0 (1 standard drink = 0.6 oz pure alcohol)Quit January 01, 2017PHQ-2AnswerDate RecordedPHQ-2 Xugjm69411/07/2024dolescent EducationAnswerDate RecordedGetting School Help NeededNot on file08/01/2023Food [...] in an abandoned building, in an overnight care home, or couch-surfing.)Yes08/26/2023 Are you worried about [...] InformationValueDate RecordedSex Assigned at BirthNot on fileLegal OczAypa93/04/2012 3:21 AM CSTGender IdentityNot on file Sexual OrientationNot on filedocumented as of this encounter Plan of Treatment DateTypeDepartmentCare Team (Latest Contact Info)Olzkvjhcrda83/06/2026 1:30 PM CSTOffice Visit [facility] [address] [place] [phone] Abi Mcclellan MD [address] [place], [place] [address] 11/22/2025 8:30 AM CSTVirtual Visit [facility] [address] [place] [address] Jillian Reeves [facility] [address] [place] [address] 11/22/2025 9:00 AM CSTVirtual Visit [facility] [place] [address] [place] [phone] Abi Mcclellan MD [address] [place], [place] [phone] Elisa Colon DO [address] [place], [place] [address] documented as of this encounter Visit Diagnoses Not on filedocumented in this encounter Additional Health Concerns AssessmentNoted TimePHQ-9 Depression Total Score: 1:50 PM PHYS ASST documented as of this encounter Care Teams Team MemberRelationshipSpecialtyStart DateEnd Date No Ref-Primary, Physician PCP - General05/28/23 [facility] [address] [place] [address] PCP02/09/18 Abi Mcclellan MD [address] [place], [place] [address] Assigned PCP09/09/25documented as of this encounter
--- OUTSIDE RECORDS SUMMARY | 2025-10-16 02:10 | XMS_ITS | Encounter Summary ---
Author Organization [facility] Address [address] [place] [address] Care Team Providers Care Change Advisor Name Role Phone [facility] [place] Unavailable No Ref-Primary, Physician Primary Care Provider Abi Mcclellan MD Unavailable Encounter Details DateTypeDepartmentCare Team (Latest Contact Info)Txjzzmhmbna73/24/2025Results Follow-Up [facility] [place] [address] Chrissie Monae RN Social History Tobacco UseTypesPacks/DayYears UsedDateSmoking Tobacco: UrjafhMcujxrjcxp9Nfpb: 05/06/1997Smokeless Tobacco: CurrentChewAlcohol UseStandard Drinks/WeekComments No0 (1 standard drink = 0.6 oz pure alcohol)Quit January 01, 2017AUDIT-CAnswerDate RecordedQ1: How often do you have a drink containing alcohol?Never10/13/2025 Average Number of DrinksNot on file10/13/2025Frequency of Binge DrinkingNot on file10/13/2025PHQ-2AnswerDate RecordedPHQ-2 Zhifo42611/07/2024dolescent Education AnswerDate RecordedGetting School Help NeededNot on [...] in an abandoned building, in an overnight jail, or couch-surfing.)Yes10/13/2025re you worried about losing your [...] ValueDate RecordedSex Assigned at BirthNot on fileLegal SpiKwlk02/04/2012 3:21 AM CSTGender IdentityNot on fileSexual OrientationNot on filedocumented as of this encounter Plan of Treatment DateTypeDepartmentCare Team (Latest Contact Info)Ojplldvwnse98/06/2026 1:30 PM CSTOffice Visit [facility] [address] [place] [phone] Abi Mcclellan MD [address] [place] [address] 11/22/2025 8:30 AM CSTVirtual Visit [facility] [address] [place] [address] Jillian Reeves [facility] [address] [place] [address] 11/22/2025 9:00 AM CSTVirtual Visit [facility] [place] [address] [place] [phone] Abi Mcclellan MD [address] [place], [place] [phone] Elisa Colon DO [address] [place], [place] [address] documented as of this encounter Visit Diagnoses Not on filedocumented in this encounter Additional Health Concerns AssessmentNoted TimePHQ-9 Depression Total Score: 1:50 PM [employer] documented as of this encounter Care Teams Team MemberRelationshipSpecialtyStart DateEnd Date No Ref-Primary, Physician PCP - General05/28/23 [facility] [address] [place] [address] PCP02/09/18 Abi Mcclellan MD [address] [place], [place] [address] Assigned PCP09/09/25documented as of this encounter
--- OUTSIDE RECORDS SUMMARY | 2025-10-16 02:10 | XMS_ITS | Encounter Summary ---
Author Organization [place] Address [address] [place] [address] Care Team Providers Care Tobacco Sweeper Name Role Phone [facility], [facility] Unavailable [phone] No Ref-Primary, Physician Primary Care Provider Abi Mcclellan MD Unavailable Encounter Details DateTypeDepartmentCare Team (Latest Contact Info)Ovtyqhjarfm27/23/2025Travel Social History Tobacco UseTypesPacks/DayYears UsedDateSmoking Tobacco: PcfyekAgmmezphvx9Xhub: 05/06/1997Smokeless Tobacco: CurrentChewAlcohol UseStandard Drinks/WeekComments No0 (1 standard drink = 0.6 oz pure alcohol)Quit January 01, 2017PHQ-2AnswerDate RecordedPHQ-2 Uxyqw60011/07/2024dolescent EducationAnswerDate RecordedGetting School Help NeededNot on file08/01/2023Food [...] in an abandoned building, in an overnight long-term, or couch-surfing.)Yes08/26/2023 Are you worried about losing [...] InformationValueDate RecordedSex Assigned at BirthNot on fileLegal AqjIbwx61/04/2012 3:21 AM CSTGender IdentityNot on file Sexual OrientationNot on filedocumented as of this encounter Plan of Treatment DateTypeDepartmentCare Team (Latest Contact Info)Ddgvvbawpfj31/06/2026 1:30 PM CSTOffice Visit [facility] [address] [place] [address] Abi Mcclellan MD [address] [place] [address] 11/22/2025 8:30 AM CSTVirtual Visit [facility] [address] [place] [address] Jillian Reeves [facility] [address] [place] [address] 11/22/2025 9:00 AM CSTVirtual Visit [facility] [address] [place] [address] Abi Mcclellan MD [address] [place], [place] [address] Elisa Colon DO [address] [place], [place] [address] documented as of this encounter Visit Diagnoses Not on filedocumented in this encounter Additional Health Concerns AssessmentNoted TimePHQ-9 Depression Total Score: 1:50 PM ELEMENTARY SECRETARY documented as of this encounter Care Teams Team MemberRelationshipSpecialtyStart DateEnd Date No Ref-Primary, Physician PCP - General05/28/23 [facility] [id number] [place] [id number] PCP02/09/18 Abi Mcclellan MD [address] [place], [place] [address] Assigned PCP09/09/25documented as of this encounter
--- OUTSIDE RECORDS SUMMARY | 2025-10-16 02:10 | XMS_ITS | Encounter Summary ---
Author Organization [place] Address [address] [place] [address] Care Team Providers Care Earth Mover Name Role Phone [facility], [facility] Unavailable [phone] No Ref-Primary, Physician Primary Care Provider Abi Mcclellan MD Unavailable Reason for Visit * ReasonOnset DdltYoqpykxrJuibwbdo14/22/2025scites, wants paracentesis Encounter Details DateTypeDepartmentCare Team (Latest Contact Info)Itjarswntld27/22/2025[facility] Medical Advice [facility] [address] [place] [address] Ami Marcelino RN Jaundice (Ascites, wants paracentesis) Social History Tobacco UseTypesPacks/DayYears UsedDateSmoking Tobacco: ZwhctzUceztwqpzk7Pnnl: 05/06/1997Smokeless Tobacco: CurrentChewAlcohol UseStandard Drinks/WeekComments No0 (1 standard drink = 0.6 oz pure alcohol)Quit January 01, 2017PHQ-2AnswerDate RecordedPHQ-2 Trjns76711/07/2024dolescent EducationAnswerDate RecordedGetting School Help NeededNot on file08/01/2023Food [...] in an abandoned building, in an overnight fdc, or couch-surfing.)Yes08/26/2023 Are you worried about losing [...] InformationValueDate RecordedSex Assigned at BirthNot on fileLegal UneHfpz17/04/2012 3:21 AM CSTGender IdentityNot on file Sexual OrientationNot on filedocumented as of this encounter Miscellaneous Notes * Telephone Encounter - Mackenzie Hernandez RN - 10/09/2025 9:05 AM SLIVER MACHINE OPERATOR Per Dr. Carey, patient is to present to ED. Advised patient of this and he will present to ED some time today but will not go right away. Castro Hernandez R.N. ER MACHINE OPERATOR * Telephone Encounter - Mackenzie Hernandez RN - 10/09/2025 8:23 AM SLIVER MACHINE OPERATOR Patient with history of cirrhosis, states he last had a paracentesis was about 8 years ago. Patientreports 2 week history of abdominal enlargement, abdomen feels tight. States he ran out of his diuretic and feels that may have contributed to ascites. Patient feels he may be running low grade fever. Rates abdominal pain 3-5/10, very uncomfortable and interferes with sleep. Had nausea a couple of days ago, no vomiting. Feels full easily, decreased food intake. Does have jaundice and gets shortof breath with exertion. Would like to avoid going to ED. Has not seen ore fielder for a long time. Castro Hernandez R.N. ER MACHINE OPERATOR documented in this encounter Plan of Treatment DateTypeDepartmentCare Team (Latest Contact Info)Napwlgtxjpi30/06/2026 1:30 PM CSTOffice Visit [facility] [address] [facility] [address] [place] [phone] Abi Mcclellan MD [address] [place], [place] [address] 11/22/2025 8:30 AM CSTVirtual Visit [facility] [address] [address] Jillian Reeves [facility] [address] [place] [address] 11/22/2025 9:00 AM CSTVirtual Visit [facility] [address] [phone] Abi Mcclellan MD [address] [place], [place] [address] Elisa Colon DO [address] [place], [place] [address] documented as of this encounter Visit Diagnoses Not on filedocumented in this encounter Additional Health Concerns AssessmentNoted TimePHQ-9 Depression Total Score: 1:50 PM SLIVER MACHINE OPERATOR documented as of this encounter Care Teams Team MemberRelationshipSpecialtyStart DateEnd Date No Ref-Primary, Physician PCP - General05/28/23 [facility] [address] [place], [place] [address] PCP02/09/18 Abi Mcclellan MD [address] [place] [address] Assigned PCP09/09/25documented as of this encounter
--- OUTSIDE RECORDS SUMMARY | 2025-10-16 02:10 | XMS_ITS | Encounter Summary ---
Author Organization [place] Address [address] [place] [address] Care Team Providers Care Employee Health Nurse Name Role Phone [facility], [facility] Unavailable No Ref-Primary, Physician Primary Care Provider Abi Mcclellan MD Unavailable Encounter Details DateTypeDepartmentCare Team (Latest Contact Info)Wuhwdfqoohl95/02/2025Results Follow-Up [facility] [address] [facility] [address] [place] [address] Abi Mcclellan MD [address] [place] [address] Dx: Alcoholic cirrhosis of liver with ascites (H) (Primary Dx) Social History Tobacco UseTypesPacks/DayYears UsedDateSmoking Tobacco: QcsdrnAenxiqmlet7Bexj: 05/06/1997Smokeless Tobacco: CurrentChewAlcohol UseStandard Drinks/WeekComments No0 (1 standard drink = 0.6 oz pure alcohol)Quit January 01, 2017PHQ-2AnswerDate RecordedPHQ-2 Knfov42911/07/2024dolescent EducationAnswerDate RecordedGetting School Help NeededNot on file08/01/2023Food [...] in an abandoned building, in an overnight retirement, or couch-surfing.)Yes08/26/2023 Are you worried about losing [...] InformationValueDate RecordedSex Assigned at BirthNot on fileLegal OsyVppu12/04/2012 3:21 AM CSTGender IdentityNot on file Sexual OrientationNot on filedocumented as of this encounter Miscellaneous Notes * Result Encounter Note - Mackenzie Hernandez RN - 09/18/2025 11:42 AM RN CLINICAL DOCUMENTATION SPECIALIST Patient advised of result note describing low potassium, elevated glucose and elevated LFTs. He will increase potassium rich foods, recheck labs in 2 weeks. He will also call to schedule appt with hepatology. Castro Hernandez R.N. CLINICAL DOCUMENTATION SPECIALIST documented in this encounter Plan of Treatment DateTypeDepartmentCare Team (Latest Contact Info)Vojaqaplqsp40/06/2026 1:30 PM CSTOffice Visit [facility] [address] [facility] [address] [place] [phone] Abi Mcclellan MD [address] [place] [address] 11/22/2025 8:30 AM CSTVirtual Visit [facility] [address] [address] Jillian Reeves [facility] [address] [place], [place] [address] 11/22/2025 9:00 AM CSTVirtual Visit [facility] [address] [phone] Abi Mcclellan MD [address] [place], [place] [address] Elisa Colon DO [address] [place], [place] [address] NameTypePriorityAssociated DiagnosesOrder ScheduleBasic metabolic panelLab Routine Alcoholic cirrhosis of liver with ascites (H) Expected: 10/02/2025 (Approximate), Expires: 09/18/2026Hemoglobin Z0nZujIjfrfxr Impaired fasting glucose Expected: 10/02/2025 (Approximate), Expires: 09/18/2026documented as of this encounter Visit Diagnoses Diagnosis Alcoholic cirrhosis of liver with ascites (H)- Primary Alcoholic cirrhosis of liver Impaired fasting glucose documented in this encounter Additional Health Concerns AssessmentNoted TimePHQ-9 Depression Total Score: 7111/07/2024 1:50 PM RN CLINICAL DOCUMENTATION SPECIALIST documented as of this encounter Care Teams Team MemberRelationshipSpecialtyStart DateEnd Date No Ref-Primary, Physician PCP - [facility]28[facility]23 [facility] [address] [place] [address] PCP02/09/18 Abi Mcclellan MD [address] [place] [address] Assigned PCP09/09/25documented as of this encounter
--- OUTSIDE RECORDS SUMMARY | 2025-10-16 02:11 | XMS_ITS | Encounter Summary ---
Author Organization [place] Address [address] [place] [address] Care Team Providers Care Tree Care Foreman Name Role Phone [facility] No Ref-Primary, Physician Primary Care Provider [facility] Unavailable Encounter Details DateTypeDepartmentCare Team (Latest Contact Info)Dyniaqlmjsr52/21/2025Travel Social History Tobacco UseTypesPacks/DayYears UsedDateSmoking Tobacco: XbvdatKlwyjutvyx9Ibwy: 05/06/1997Smokeless Tobacco: CurrentChewAlcohol UseStandard Drinks/WeekComments No0 (1 standard drink = 0.6 oz pure alcohol)Quit January 01, 2017PHQ-2AnswerDate RecordedPHQ-2 Ohaun47011/07/2024dolescent EducationAnswerDate RecordedGetting School Help NeededNot on file08/01/2023Food [...] in an abandoned building, in an overnight longterm, or couch-surfing.)Yes11/06/2023 Are you worried about losing your housing?Yes08/26/2023Financial [...] InformationValueDate RecordedSex Assigned at BirthNot on fileLegal OobWkhr81/04/2012 3:21 AM CSTGender IdentityNot on file Sexual OrientationNot on filedocumented as of this encounter Plan of Treatment DateTypeDepartmentCare Team (Latest Contact Info)Qkndmhvbcyc55/06/2026 1:30 PM CSTOffice Visit [place] [address] [place] [address] Abi Mcclellan MD [address] [place] [address] 11/22/2025 8:30 AM CSTVirtual Visit [facility] [address] [place] [address] Jillian Reeves [facility] [address] [place], [place] [address] 11/22/2025 9:00 AM CSTVirtual Visit [facility] [place] [address] [place] [address] Abi Mcclellan MD [address] [place], [place] [address] Elisa Colon DO [address] [place], [place] [address] documented as of this encounter Visit Diagnoses Not on filedocumented in this encounter Additional Health Concerns AssessmentNoted TimePHQ-9 Depression Total Score: 1:50 PM SUPPLY ASSISTANT documented as of this encounter Care Teams Team MemberRelationshipSpecialtyStart DateEnd Date No Ref-Primary, Physician PCP - General05/28/23 [facility] [address] [place], [place] [address] PCP02/09/18 [facility] [address] [place], [place] [address] Assigned PCP07/10/22/25documented as of this encounter
--- OUTSIDE RECORDS SUMMARY | 2025-10-16 02:11 | XMS_ITS | Clinical Summary ---
Author Organization [facility] Address [address] [place] [address] Care Team Providers Care Machine Folder Name Role Phone Dre Weeks DO Primary Care Provider [phone] Allergies Active AllergyReactionsCriticalityNoted DateCommentsEicosapentaenoic Acid CqvokxfxemuTgcf18/29/2213LokqkzudrGlryfCza05/11/2011PenicillinsHivesHigh 04/27/2011 Medications MedicationSigDispense QuantityRefillsLast FilledStart DateEnd DateStatus Multivits,Ca,Hvlrfhxm-Inzx-GM (THERA M PLUS, FERROUS FUMARAT,) 9 mg iron-400 mcg tablet Take by mouth.02/18/2017Active furosemide (LASIX) 20 mg tablet 01/20/2018Active spironolactone (ALDACTONE) 50 mg tablet 01/20/2018Active Active Problems ProblemNoted DateDiagnosed DateAlcohol abuse03/04/20173353Tsyvzyxpgnkgvx05/04/2013 Borderline diabetes phchrbic18/04/2013HTN (hypertension)08/16/2012 Resolved Problems ProblemNoted DateDiagnosed DateResolved DateAlcoholic coslkydhp98/18/2017 04/13/2018Alcohol withdrawal xecwosk40Hepatic encephalopathy Acute respiratory failure with peacrad03C. difficile podfwgb89 Social History Tobacco UseTypesPacks/DayYears UsedDateSmoking Tobacco: HzmtxwJeieitgiox3Qvzh: 10/18/1995Smokeless Tobacco: NeverAlcohol UseStandard Drinks/WeekCommentsNo0 (1 standard drink = 0.6 oz pure alcohol)Sex and Gender InformationValueDate RecordedSex Assigned at BirthNot on fileLegal XuiJtam9310/31/2012 6:22 AM MATH INTERVENTIONIST Gender IdentityNot on fileSexual OrientationNot on file Last Filed Vital Signs Vital SignReadingTime TakenCommentsBlood Nxclallr030/8006 11:07 AM CDT Uainm307404/13/2018 11:07 AM BIEPxtwwyqasve82.4 ??C (97.6 ??F)04/13/2018 11:07 AM CDTRespiratory Rate--Oxygen Saturation--Inhaled Oxygen Concentration--Mbbvkz09.4 kg (214 lb 12.8 oz)04/13/2018 11:07 AM PBCOcnimy121.9 cm (5' 9.25)02/03/2018 10:01 AM CDTBody Mass Index31.49002/03/2018 10:01 AM CDT Plan of Treatment Health MaintenanceDue DateLast DoneCommentsTetanus qkxkery7505/25/1978Depression screening for age 12+1979HIV for age 15-Hepatitis C screening for age 18-7905/25/1985Hepatitis B series for 19+ (1 of 3 - 19+ 3-dose series) 1986Lipids for age 45-Pneumococcal series for age 50+ (1 of 1 - PCV)2017Zoster (shingles) series for age 50+ (1 of 2)2017BMI (ht and wt on same day) for age 18+, 12/29/2017COVID-19 vaccine series ( - 2024- season)2025Influenza Vaccine (#1)5Colonoscopy through age 7511//RSV vaccine for adults or (1 - 1- dose 75+ series)2042 Procedures Procedure NamePriorityDate/TimeAssociated DiagnosisCommentsSCAN-COLONOSCOPY 08/27/2017 12:00 AM MATH INTERVENTIONIST from Last 3 Months or Most Recently Relevant to Health Maintenance Results * SCAN-COLONOSCOPY (08/27/2017 12:00 AM MATH INTERVENTIONIST) Narrative Authorizing ProviderResult TypeResult StatusScannerOTHERFinal Result from Last 3 Months or Most Recently Relevant to Health Maintenance Insurance * Guarantor: Richard Fonseca TypeRelation to PatientDate of BirthPhone Billing AddressPersonal/CkvwrlLmgc1965 [address] [place] [address] [place] [address] Care Teams Team MemberRelationshipSpecialtyStart DateEnd Date Dre Weeks DO PCP - GeneralFamily Practice04/13/18
--- OUTSIDE RECORDS SUMMARY | 2025-10-16 02:11 | XMS_ITS | Patient Health Record ---
Author Organization [facility] Address [address] [place] [address] Phone [phone] Care Team Providers Care Assistant Production Manager Name Role Phone None, None Primary Care Provider GIORGIO Zendejas MD Unavailable [phone] Allergies Allergen (clinical drug ingredient) Drug/Non Drug Allergy documented on EMR Reaction Allergy Type Onset Date Status penicillin V Penicillin V Potassium Unknown Drug Allerg y Active Reason For Referral No Information Medications Medication SIG (Take, Route, Frequency, Duration) Notes Start Date End Date Diagnosis (ICD Code) Status Clindamycin HCl ActiveFurosemideActive Social History Tobacco Use: Social History Observation Description Date Details (start date - stop date) Never Smoker NA - NA Sex Observation Social History Observation Description Sex Observation Male Social History :Social InfoQuestionAnswerNotesHow often do you consume alcohol?Answer:never Tobacco Use:Social InfoQuestionAnswerNotesTobacco use/smokingAre you anonsmoker Problems Problem Type SNOMED Code ICD Code Dates Problem Status W/U Sta tus Risk Notes Problem Neck swelling (303108334) Neck swelling (R22.1) Added On:11/30/2017 Active confirmed ProblemSialoadenitis (80014038)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
--- OUTSIDE RECORDS SUMMARY | 2025-10-16 02:11 | XMS_ITS | Encounter Summary ---
Author Organization [place] Address [address] [place] [address] Care Team Providers Care Buggyman Name Role Phone [facility], [facility] Unavailable [phone] No Ref-Primary, Physician Primary Care Provider Abi Mcclellan MD Unavailable Encounter Details DateTypeDepartmentCare Team (Latest Contact Info)Jalpbqijmor53/25/2025Travel Social History Tobacco UseTypesPacks/DayYears UsedDateSmoking Tobacco: OkqunwTiifrbivpj3Nksm: 05/06/1997Smokeless Tobacco: CurrentChewAlcohol UseStandard Drinks/WeekComments No0 (1 standard drink = 0.6 oz pure alcohol)Quit January 01, 2017PHQ-2AnswerDate RecordedPHQ-2 Goftb54211/07/2024dolescent EducationAnswerDate RecordedGetting School Help NeededNot on file08/01/2023Food [...] InformationValueDate RecordedSex Assigned at BirthNot on fileLegal XktUcpi85/04/2012 3:21 AM CSTGender IdentityNot on file Sexual OrientationNot on filedocumented as of this encounter Plan of Treatment DateTypeDepartmentCare Team (Latest Contact Info)Dlsftsaggwz45/06/2026 1:30 PM CSTOffice Visit [facility] [address] [place] [address] Abi Mcclellan MD [address] [place] [address] 11/22/2025 8:30 AM CSTVirtual Visit [facility] & Addiction [address] [place] [address] Jillian Reeves [facility] [address] [place] [address] 11/22/2025 9:00 AM CSTVirtual Visit [facility] Addiction [address] [place] [address] Abi Mcclellan MD [address] [place], [place] [phone] Elisa Colon DO [address] [place], [place] [address] documented as of this encounter Visit Diagnoses Not on filedocumented in this encounter Additional Health Concerns AssessmentNoted TimePHQ-9 Depression Total Score: 1:50 PM SHUTTLE THREADER documented as of this encounter Care Teams Team MemberRelationshipSpecialtyStart DateEnd Date No Ref-Primary, Physician PCP - General05/28/23 [facility] [address] [place] [address] PCP02/09/18 Abi Mcclellan MD [address] [place], [place] [address] Assigned PCP09/09/25documented as of this encounter
--- OUTSIDE RECORDS SUMMARY | 2025-10-16 02:11 | XMS_ITS | Encounter Summary ---
Author Organization [place] Address [address] [place] [address]. [place] [address] Care Team Providers Care Operation Supervisor Name Role Phone [facility], [facility] [place] Unavailable [phone] No Ref-Primary, Physician Primary Care Provider Abi Mcclellan MD Unavailable Encounter Details DateTypeDepartmentCare Team (Latest Contact Info)Fndvzsfnzez92/27/2025[facility] Medical Advice Initial Department [address] [place] [address] Claudio James Social History Tobacco UseTypesPacks/DayYears UsedDateSmoking Tobacco: DzlwblJgmyboggvh7Ehzj: 05/06/1997Smokeless Tobacco: CurrentChewAlcohol UseStandard Drinks/WeekComments No0 (1 standard drink = 0.6 oz pure alcohol)Quit January 01, 2017AUDIT-CAnswerDate RecordedQ1: How often do you have a drink containing alcohol?Never10/13/2025 Average Number of DrinksNot on file10/13/2025Frequency of Binge DrinkingNot on file10/13/2025PHQ-2AnswerDate RecordedPHQ-2 Kvnqs72711/07/2024dolescent Education AnswerDate RecordedGetting School Help NeededNot on [...] in an abandoned building, in an overnight chcf, or couch-surfing.)Yes10/15/2025re you worried about losing your [...] ValueDate RecordedSex Assigned at BirthNot on fileLegal RarQfom51/04/2012 3:21 AM CSTGender IdentityNot on fileSexual OrientationNot on filedocumented as of this encounter Plan of Treatment DateTypeDepartmentCare Team (Latest Contact Info)Sdmwsptfuiw67/06/2026 1:30 PM CSTOffice Visit [facility] [address] [place] [address] Abi Mcclellan MD [address] [place], [place] [address] 11/22/2025 8:30 AM CSTVirtual Visit [facility] Addiction [address] [place] [address] Jillian Reeves [facility] [address] [place] [address] 11/22/2025 9:00 AM CSTVirtual Visit [facility] [place] [address] [place] [phone] Abi Mcclellan MD [address] [place], [place] [address] Elisa Colon DO [address] [place], [place] [address] documented as of this encounter Visit Diagnoses Not on filedocumented in this encounter Additional Health Concerns AssessmentNoted TimePHQ-9 Depression Total Score: 7111/07/2024 1:50 PM LOCOMOTIVE OBSERVER documented as of this encounter Care Teams Team MemberRelationshipSpecialtyStart DateEnd Date No Ref-Primary, Physician PCP - General05/28/23 [facility] [address] [place], [place] [address] PCP02/09/18 Abi Mcclellan MD [address] [place], [place] [address] Assigned PCP09/09/25documented as of this encounter
--- OUTSIDE RECORDS SUMMARY | 2025-10-16 02:11 | XMS_ITS | Encounter Summary ---
Author Organization [place] Address [address] [place] [address] Care Team Providers Care Media Sales Representative Name Role Phone [facility], [facility] Unavailable No Ref-Primary, Physician Primary Care Provider Abi Mcclellan MD Unavailable Encounter Details DateTypeDepartmentCare Team (Latest Contact Info)Pecmxxieqyl07/26/2025Telephone [facility] [address] [facility] [address] [place] [address] No Ref-Primary, Physician Social History Tobacco UseTypesPacks/DayYears UsedDateSmoking Tobacco: ErxippYmnasdzpud0Ccde: 05/06/1997Smokeless Tobacco: CurrentChewAlcohol UseStandard Drinks/WeekComments No0 (1 standard drink = 0.6 oz pure alcohol)Quit January 01, 2017AUDIT-CAnswerDate RecordedQ1: How often do you have a drink containing alcohol?Never10/13/2025 Average Number of DrinksNot on file10/13/2025Frequency of Binge DrinkingNot on file10/13/2025PHQ-2AnswerDate RecordedPHQ-2 Ecaud18911/07/2024dolescent Education AnswerDate RecordedGetting School Help NeededNot on [...] in an abandoned building, in an overnight senior living, or couch-surfing.)Yes10/13/2025re you worried about losing your [...] ValueDate RecordedSex Assigned at BirthNot on fileLegal RxgVqcd01/04/2012 3:21 AM CSTGender IdentityNot on fileSexual OrientationNot on filedocumented as of this encounter Miscellaneous Notes * Telephone Encounter - Dorothea Torres RN - 10/12/2025 10:11 AM CHANGE MANAGER Richard calling in reports his severe itching due to being jaundice - patient is wanting a sooner appt with a primary care provider - reviewed UC note from yesterday and he was advised to return to the where he left AMA on 10/09 - I advised patient this is where he needs to return to - patient verbalized understanding. Thank You, Dorothea Soriano RN GE MANAGER documented in this encounter Plan of Treatment DateTypeDepartmentCare Team (Latest Contact Info)Zzqhatfbqlq59/06/2026 1:30 PM CSTOffice Visit [facility] [address] [facility] [address] [place] [phone] Abi Mcclellan MD [address] [place], [place] [address] 11/22/2025 8:[address] [address] [phone] Jillian Reeves [facility] [address] [place] [address] 11/22/2025 9:[address] [facility] [address] [phone] Abi Mcclellan MD [address] [place], [place] [address] [place] [address] [place] [id number] documented as of this encounter Visit Diagnoses Not on filedocumented in this encounter Additional Health Concerns AssessmentNoted TimePHQ-9 Depression Total Score: 7111/07/2024 1:50 PM CHANGE MANAGER documented as of this encounter Care Teams Team MemberRelationshipSpecialtyStart DateEnd Date No Ref-Primary, Physician PCP - General05/28/23 [facility] [address] [place] [address] PCP02/09/18 Abi Mcclellan MD [address] [place] [address] Assigned PCP09/09/25documented as of this encounter
--- OUTSIDE RECORDS SUMMARY | 2025-10-16 02:11 | XMS_ITS | Encounter Summary ---
Author Organization [place] Address [address] [place] [address] Care Team Providers Care Rn Bariatric Name Role Phone [facility], [facility] Unavailable No Ref-Primary, Physician Primary Care Provider Abi Mcclellan MD Unavailable Encounter Details DateTypeDepartmentCare Team (Latest Contact Info)Hjrdlinpkoc98/25/2025Telephone [facility] [address] [facility] [address] [place] [address] Abi Mcclellan MD [address] [place] [address] Social History Tobacco UseTypesPacks/DayYears UsedDateSmoking Tobacco: UihjibTsxktgpwty1Ldki: 05/06/1997Smokeless Tobacco: CurrentChewAlcohol UseStandard Drinks/WeekComments No0 (1 standard drink = 0.6 oz pure alcohol)Quit January 01, 2017PHQ-2AnswerDate RecordedPHQ-2 Ncwpx88511/07/2024dolescent EducationAnswerDate RecordedGetting School Help NeededNot on file08/01/2023Food [...] InformationValueDate RecordedSex Assigned at BirthNot on fileLegal FmtVtdp11/04/2012 3:21 AM CSTGender IdentityNot on file Sexual OrientationNot on filedocumented as of this encounter Miscellaneous Notes * Telephone Encounter - Fransisco Schumacher CMA - 09/11/2025 9:49 AM RESEARCH DAIRY FARM SUPERVISOR Pt arrived to [facility] for MA visit. Appt note did not state why pt is here for. Pt doesn'tknow either. There was a future fasting lab ordered but he did not fast for lab, so no labs are done. We scheduled one for tomorrow 09/12/25. According to visit summary from a recent visit with Dr Mcclellan 4 days ago 09/07/25, he needs a 6 weeks follow. We made that appt for 10/25/[address] Mcclellan. Also he said he does not want to do GI appt or mental health appt. If he changes his mind, I showed him the phone # to call on the visit summary that I printed for him. Pt states he doesn't do vaccines. No vaccines today. He doesn't feel he needs BP check either as itwas WNL last office visit and he has not started to take any meds ordered on 09/07/ visit. Other than making appt, nothing else was done, so today's appt is cancelled. Fransisco Schumacher CMA ARCH DAIRY FARM SUPERVISOR documented in this encounter Plan of Treatment DateTypeDepartmentCare Team (Latest Contact Info)Xnqykouvjkf98/06/2026 1:[address] [address] [place] [phone] Abi Mcclellan MD [address] [place], [place] [address] 11/22/2025 8:30 AM CSTVirtual Visit [facility] [address] [phone] Jillian Reeves [facility] [address] [place] [address] 11/22/2025 9:00 AM CSTVirtual Visit [facility] [address] [phone] Abi Mcclellan MD [address] [place], [place] [address] Elisa Colon DO [address] [place], [place] [phone] documented as of this encounter Visit Diagnoses Not on filedocumented in this encounter Additional Health Concerns AssessmentNoted TimePHQ-9 Depression Total Score: 1:50 PM RESEARCH DAIRY FARM SUPERVISOR documented as of this encounter Care Teams Team MemberRelationshipSpecialtyStart DateEnd Date No Ref-Primary, Physician PCP - General05/28/23 [facility] [address] [place] [address] PCP02/09/18 Abi Mcclellan MD [address] [place] [address] Assigned PCP09/09/25documented as of this encounter
--- OUTSIDE RECORDS SUMMARY | 2025-10-16 02:11 | XMS_ITS | Encounter Summary ---
Author Organization [place] Address [facility] [place] [address] Care Team Providers Care Emergency Operator Name Role Phone [facility], [facility] Unavailable No Ref-Primary, Physician Primary Care Provider [facility] Unavailable Reason for Visit * ReasonCommentsMedication Refill Encounter Details DateTypeDepartmentCare Team (Latest Contact Info)Eispkqramuh51/20/2025[facility] [address] [place] [address] Shilpa Ott MD [address] [place] [address] Medication Refill Social History Tobacco UseTypesPacks/DayYears UsedDateSmoking Tobacco: ZgsbnqZppqsmxpdt8Bccr: 05/06/1997Smokeless Tobacco: CurrentChewAlcohol UseStandard Drinks/WeekComments No0 (1 standard drink = 0.6 oz pure alcohol)Quit January 01, 2017PHQ-2AnswerDate RecordedPHQ-2 Uwqkl26211/07/2024dolescent EducationAnswerDate RecordedGetting School Help NeededNot on file08/01/2023Food [...] abandoned building, in an overnight snf, or couch-surfing.)Yes08/26/2023 Are you worried about losing [...] InformationValueDate RecordedSex Assigned at BirthNot on fileLegal UujPmfc33/04/2012 3:21 AM CSTGender IdentityNot on file Sexual OrientationNot on filedocumented as of this encounter Miscellaneous Notes * Telephone Encounter - Bella Schmitt - 09/06/2025 11:02 AM CST Patient called to check the status. Patient has not been seen since 2021 so I scheduled him for an appointment on 09/07/[address] Mcclellan. RELIEF PILOT * Telephone Encounter - Matilde Ty RN - 09/06/2025 10:55 AM CST Clinic RN: Please investigate patient's chart or contact patient if the information cannot be foundbecause patient should have run out of this medication on 11/2023. Confirm patient is taking this medication as prescribed. Document findings and route refill encounter to provider for approval or denial. Matilde Ty, RN on 09/06/2025 at 10:55 AM RELIEF PILOT documented in this encounter Plan of Treatment DateTypeDepartmentCare Team (Latest Contact Info)Ymafqpskbhy79/06/2026 1:30 PM CSTOffice Visit [facility] [address] [facility] [address] [place] [phone] Abi Mcclellan MD [address] [place], [place] [address] 11/22/2025 8:30 AM CSTVirtual Visit [facility] [address] [phone] Jillian Reeves [facility] [address] [place], [place] [phone] 11/22/2025 9:00 AM CSTVirtual Visit [facility] [address] [phone] Abi Mcclellan MD [address] [place], [place] [address] Elisa Colon DO [address] [place], [place] [phone] documented as of this encounter Visit Diagnoses Diagnosis Alcoholic cirrhosis of liver with ascites (H) Alcoholic cirrhosis of liver documented in this encounter Additional Health Concerns AssessmentNoted TimePHQ-9 Depression Total Score: 7:51 AM CDT documented as of this encounter Care Teams Team MemberRelationshipSpecialtyStart DateEnd Date No Ref-Primary, Physician PCP - General05/28/23 [facility] Deepa Henderson [address] [place] [address] PCP02/09/[address] [phone] Assigned PCP07/10/documented as of this encounter
--- OUTSIDE RECORDS SUMMARY | 2025-10-16 02:11 | XMS_ITS | Encounter Summary ---
Author Organization [place] Address [address] [place] [address] Care Team Providers Care Personal Financial Representative Name Role Phone [facility], [facility] Unavailable No Ref-Primary, Physician Primary Care Provider [facility] Unavailable Abi Mcclellan MD Unavailable Encounter Details DateTypeDepartmentCare Team (Latest Contact Info)Wospmihnfsc18/21/2025[facility] [place] Medical Advice [facility] [address] [place] [address] Abi Mcclellan MD [address] [place] [address] Social History Tobacco UseTypesPacks/DayYears UsedDateSmoking Tobacco: KbpnfoFpinslvjna6Jnsa: 05/06/1997Smokeless Tobacco: CurrentChewAlcohol UseStandard Drinks/WeekComments No0 (1 standard drink = 0.6 oz pure alcohol)Quit January 01, 2017PHQ-2AnswerDate RecordedPHQ-2 Ypwgb45111/07/2024dolescent EducationAnswerDate RecordedGetting School Help NeededNot on file08/01/2023Food [...] in an abandoned building, in an overnight penitentiary, or couch-surfing.)Yes08/26/2023 Are you worried about losing [...] InformationValueDate RecordedSex Assigned at BirthNot on fileLegal SfmNyvp12/04/2012 3:21 AM CSTGender IdentityNot on file Sexual OrientationNot on filedocumented as of this encounter Plan of Treatment DateTypeDepartmentCare Team (Latest Contact Info)Fegagogmfqt97/06/2026 1:30 PM CSTOffice Visit [facility] [address] [place] [address] Abi Mcclellan MD [address] [place] [address] 11/22/2025 8:[address] [facility] [place] [address] [place] [phone] Jillian Reeves [facility] [address] [place] [address] 11/22/2025 9:[address] 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
[2025-10-16 02:12] LABS: Albumin* 2.9 g/dL (3.3-5.0); Chloride* 96 mmol/L (96-114); Potassium* 3.6 mmol/L (3.6-5.1); Sodium* 132 mmol/L (135-149)
[2025-10-16 02:14] LABS: Blood Urea Nitrogen* 20 mg/dL (7-30); Creatinine* 1.2 mg/dL (0.5-1.5); Est. Creatinine Clearance* 69.28; Estimated Glomerular Filt Rate 70 ml/min
[2025-10-16 02:15] LABS: Alanine Aminotransferase* 84 U/L (4-50); Alkaline Phosphatase* 333 U/L (40-150); Anion Gap 8 mEq/L (7-15); Aspartate Amino Transferase* 169 U/L (12-35); Bilirubin Direct* 12.0 mg/dL (0.0-0.5); Bilirubin Total* 13.9 mg/dL (0.1-1.5); Calcium* 8.0 mg/dL (8.4-10.6); Carbon Dioxide* 28 mmol/L (20-32); Glucose* 103 mg/dL (60-115); Total Protein* 7.7 g/dL (6.0-8.3)
[2025-10-16 02:17] LABS: Ethanol* < 0.01 % (0.01-0.03)
[2025-10-16 02:33] LABS: PCR FLU A Negative PCR FLU A (Negative); PCR FLU B Negative PCR FLU B (Negative); PCR RSV Negative PCR RSV (Negative); SARS PCR* Negative SARS-CoV-2 (Negative)
== END 2025-10-16 03:30 | disposition home or self-care (01) ==
PROVIDERS: Emergency Provider Family Medicine
DX: R25.2 Cramp and spasm (principal); T50.0X5A Adverse effect of mineralocorticoids and their antagonists, initial encounter; T50.1X5A Adverse effect of loop [high-ceiling] diuretics, initial encounter; K74.60 Unspecified cirrhosis of liver
CPT/HCPCS: 36415; 80048; 80076; 82077; 83605; 83735; 85025; 87631; 99284